=== PATIENT | male | born 1950 | race Caucasian/White ===

== ENCOUNTER 2016-09-20 15:25 | Inpatient (IN) | payer OTHER ==
[~2016-09-20] VITALS: Ht 180.3 cm; Wt 107.1 kg
[2016-09-20] VITALS (18 sets, daily range): BP systolic 105–160; BP diastolic 60–119; PULSE 65–111; TEMP 32.4–36.3; O2SAT 67–98; Ht 180.3 cm; Wt 107.1 kg
[~2016-09-20 15:25] MED LIST: ASPCH81 PO; CMD25 PO; DIGO0.2518 PO; METO25TA3 PO; SODIUM BICARB 8.4% INJ 50 MEQ/50 ML SYR IV ONE
[2016-09-20] MEDS ORDERED: AMIODARONE 360MG / 200ML D5W IV STA (15:30)
[2016-09-20] MEDS ORDERED: SODIUM BICARB 8.4% INJ 50 MEQ/50 ML SYR IV STA (15:44)
--- NOTE | 2016-09-20 15:48 | DIAGNOSTIC IMAGING REPORT ---
SINGLE VIEW CHEST CLINICAL HISTORY: Status post cardiac arrest. Atypical chest pain. FINDINGS: An AP, portable, supine chest radiograph is correlated with chest CT dated 02/17/2009. The examination is degraded by portable technique and apical lordotic positioning. Cardiac pads are in place. An endotracheal tube has been placed. The tip of the catheter projects 6 cm above the ethan at the level of the thoracic inlet. The patient is status post midline sternotomy and aortic valve replacement. The heart is markedly enlarged and there is atherosclerotic calcification of the thoracic aorta. There is prominence of the pulmonary vessels. 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 Chronic interstitial thickening is noted. Mild airspace opacities are suggested in the upper lobes. No large pleural effusion or Pneumothorax is seen. The bony thorax is grossly intact. IMPRESSION: 1. An endotracheal tube has been placed. The tip of the catheter projects 6 cm above the ethan at the level of the thoracic inlet. 2. Cardiomegaly. And mild aneurysmal dilatation of the thoracic aorta. This is likely similar in appearance to the [address] 3. Upper lobe airspace opacities are suggested. This could represent an infectious/inflammatory pneumonitis or possibly mild pulmonary edema. Clinical correlation will be required. Electronically signed by: Gurpreet Khan M.D. 09/20/2016 3:47 PM Dictated Date/Time: 09/20/2016 3:43 PM
[2016-09-20] MEDS ORDERED: FENTANYL CITRATE INJ 50 MCG/1 ML 2 ML VIAL ONE ×2 (15:49→17:00)
[2016-09-20] MEDS ORDERED: NiCARDipine HCL INJ 2.5 MG/ML 10 ML AMP ONE ×2 (15:49→16:59)
[2016-09-20] MEDS ORDERED: MIDAZOLAM HCL 1 MG/ML 2ML VIAL ONE ×2 (15:49→17:00)
[2016-09-20] MEDS ORDERED: HEPARIN SOD (PORCINE) 1000 UNIT/ML 10 ML VIAL ONE ×2 (15:49→16:59)
[2016-09-20] MEDS ORDERED: NITROGLYCERIN/D5W 100MCG/ML 20ML SYR ONE ×2 (15:50→17:01)
[2016-09-20 15:55] LABS: INR 1.1 (0.9-1.1); PROTHROMBIN TIME (PATIENT) 11.4 SECONDS (9.0-12.0)
[2016-09-20 15:55] LABS: ISTAT ARTERIAL BLOOD GAS HCO3 16 meq/L (19-24); ISTAT ARTERIAL BLOOD GAS PCO2 60 mmHg (35-46); ISTAT ARTERIAL BLOOD GAS PO2 78 mmHg (80-95); ISTAT ARTERIAL BLOOD GAS pH 7.03 (7.35-7.45); ISTAT CARBON DIOXIDE 18 mEq/l (24-31); ISTAT HEMATOCRIT 48 % (42-52); ISTAT HEMOGLOBIN 16.3 g/dl (14.0-18.0); ISTAT SODIUM 137 mEq/L (135-144)
[2016-09-20] MEDS ORDERED: NOREPINEPHRINE BITARTRATE 1 MG/ML 4 ML VIAL ONE (15:55)
[2016-09-20] MEDS ORDERED: NOREPINEPHRINE BIT INJ 8 MG in DEXTROSE 5% 500ML 500 ML IV PRN (16:00)
[2016-09-20 16:02] LABS: MEAN CELL VOLUME 93.9 fL (80-100); MEAN CORPUSCULAR HEMOGLOBIN 33.5 pg (25-34); MEAN CORPUSCULAR HGB CONC 35.7 g/dl (32-36); MEAN PLATELET VOLUME 9.6 fL (7.4-10.4); PLATELET COUNT 213 K/uL (130-400); WHITE BLOOD COUNT 30.82 K/uL (4.8-10.8)
[2016-09-20 16:02] LABS: ISTAT ARTERIAL BLOOD GAS HCO3 14 meq/L (19-24); ISTAT ARTERIAL BLOOD GAS PCO2 43 mmHg (35-46); ISTAT ARTERIAL BLOOD GAS PO2 305 mmHg (80-95); ISTAT ARTERIAL BLOOD GAS pH 7.13 (7.35-7.45); ISTAT CARBON DIOXIDE 15 mEq/l (24-31)
--- NOTE | 2016-09-20 16:11 | DIAGNOSTIC IMAGING REPORT ---
CHEST ONE VIEW PORTABLE CLINICAL HISTORY: tube tube position COMPARISON STUDY: 09/20/2016 3:37 PM FINDINGS: Endotracheal tube 2 cm below the ethan. All remaining components of the study are unchanged. IMPRESSION: Endotracheal tube 2 cm above the ethan. Otherwise unchanged exam compared to the prior study. Electronically signed by: Onur Dennis M.D. 09/20/2016 4:10 PM Dictated Date/Time: 09/20/2016 4:09 PM
[2016-09-20] MEDS ORDERED: PROPOFOL IV EMULSION 10 MG/ML 100 ML VIAL IV ONE (16:18)
[2016-09-20 16:33] LABS: ALKALINE PHOSPHATASE 99 U/L (45-117); ALT/SGPT 59 U/L (12-78); BLOOD UREA NITROGEN 14 mg/dl (7-18); BUN/CREATININE RATIO 11.1 (10-20); CALCIUM 8.3 mg/dl (8.5-10.1); CARBON DIOXIDE 18 mmol/L (21-32); CHLORIDE 104 mmol/L (98-107); GLUCOSE 268 mg/dl (70-99); SODIUM 139 mmol/L (136-145)
--- NOTE | 2016-09-20 16:46 | DIAGNOSTIC IMAGING REPORT ---
HEAD CT NONCONTRAST CT DOSE: 1376.64 mGy.cm HISTORY: cardiac arrest TECHNIQUE: Multiaxial CT images of the head were performed without the use of intravenous contrast. Comparison: None. Findings: The paranasal sinuses and mastoid air cells are clear. The calvarium and skull base are intact. The ventricles and sulci are within normal limits. There is no mass, hematoma, midline shift, or acute infarct. Impression: No acute intracranial abnormality. Electronically signed by: Onur Dennis M.D. 09/20/2016 4:44 PM Dictated Date/Time: 09/20/2016 4:41 PM
[2016-09-20 16:48] LABS: EOSINOPHIL % 0.9 %; META ABS # 0.55 K/uL (0-0); METAMYELOCYTE % 1.8 %; MYELOCYTE % 0.9 %
[2016-09-20 16:54] LABS: COMPLETE YES
[2016-09-20] MEDS ORDERED: NOREPINEPHRINE BIT INJ 8 MG in DEXTROSE 5% 500ML 500 ML IV STA (16:57)
[2016-09-20] MEDS ORDERED: AMIODARONE IV BOLUS / DRIP IV STA (16:57)
[2016-09-20] MEDS ORDERED: MEPERIDINE HCL 50 MG/ML CARP ONE (16:59)
[2016-09-20] MEDS ORDERED: MIDAZOLAM 125MG/250ML D5W IV ONE (17:12)
[2016-09-20] MEDS ORDERED: FENTANYL CITRATE 1250MCG/250ML NSS ONE (17:12)
--- NOTE | 2016-09-20 17:12 | Cardiac Catheterization ---
Procedure Note Procedure Date Sep 20, 2016. Pre-Procedure Diagnosis Non STEMI AUC Score 9 Post-Procedure Diagnosis Normal Coronary Arteries Procedure(s) Performed Coronary Angiography Critical Care Nurse Practitioner Dr. Mendoza Credit Control Assistant(s) Glunt Estimated Blood Loss 10 Medication(s) Lidocaine 1% Summary of Findings Indication: 66 year old man with history of bicuspid aortic valve, ascending aortic aneurysm s/p bioprosthetic AVR at [facility] [place] here with out of hospital arrest treated with multiple EMS/AED shocks now with ROSC. Presenting ECG with AF new RBBB and lateral ST changes. Patient intubated and cooling started in ED. Access: 6Fr Slender right radial artery Catheters: [place] Findings: LM - Angiographically normal LAD - Large caliber vessel, wraps around apex. Luminal irregularities Ramus - 20% ostial stenosis, otherwise normal Circumflex - Dominant, luminal irregularities, sluggish (URSULA 2 flow) in L-PDA. Distal PDA with mild disease, unchanged significantly from 2011 RCA - Small, non-dominant, luminal irregularities. Arterial Closure: TR band Summary: 1. Essential normal coronary arteries Recommendations: Admit to ICU Continue cooling protocol Echo to evaluate LV and bioprosthetic valve function. Hemodynamics Rest Ao: 84/60/72 Final Ao: 105/70/90 LV: --- Recommendations Medical therapy and/or Counseling Specimens None Radiation Exposure (mGy) 1170 Contrast (mls) 50 Fluids (cc crystalloids) 400 Drains None Anesthesia Propofol Procedural Complication(s) None Disposition ICU ACC Data Cardiac Status Clinical evaluation leading to the procedure CAD Presntation: Non STEMI Anginal Classification: CCS IV Heart Failure: No, NYHA Class: CCS I Cardiogenic Shock w/in 24Hrs: Yes Cardiac Arrest w/in 24Hrs: Yes Imaging studies past 6 months: No Stress studies past 6 months: No Standard Exercise Stress Test: No Stress Echocardiogram: No Stress Testing w/SPECT MPI: No Cardiac CTA: No Coronary Anatomy Dominant: Left Left Main (% Stenosis): Normal LAD (% Stenosis): Normal Circumflex (% Stenosis): Normal L PDA (% Stenosis): Distal (mild disease) R PDA (% Stenosis): Normal Ramus (% Stenosis): Ostial (10-20%) Diagnostic Physician's Name: Marc Mendoza MD Status: Emergency Closure Device Percutaneous Entry Location: Radial Closure Device: Radial Band Recommendations: Medical therapy and/or Counseling Intraprocedure Events Significant Dissection: No Perforation: No
[2016-09-20] MEDS ORDERED: MODERATE STRESS LEVEL ONE (17:15)
[2016-09-20] MEDS ORDERED: INSULIN PROTOCOL GOAL RANGE ONE (17:15)
[2016-09-20] MEDS ORDERED: CISATRACURIUM IV BOLUS & DRIP IV STA (17:23)
[2016-09-20] MEDS ORDERED: ICU ELECTROLYTE REPLACEMENT PROTOCOL PRN (17:30)
[2016-09-20] MEDS ORDERED: INSULIN IV INFUSION PROTOCOL SCH (17:30)
[2016-09-20] MEDS ORDERED: VECURONIUM BROMIDE 10 MG VIAL ONE (17:35)
[2016-09-20] MEDS ORDERED: CISATRACURIUM BESYLATE IV ONE (17:45)
[2016-09-20] MEDS ORDERED: DEXTROSE 50% 50 ML SYR IV PRN (18:00)
[2016-09-20] MEDS ORDERED: INSULIN HUMAN REGULAR IV BOLUS 4 UNIT in SYRINGE 0 ML IV SCH (18:00)
[2016-09-20] MEDS ORDERED: GLUCOSE 10 TABS/TUBE PO PRN (18:00)
[2016-09-20] MEDS ORDERED: GLUCAGON FOR INJ 1 MG VIAL SQ PRN (18:00)
[2016-09-20] MEDS ORDERED: GLUCOSE 40% GEL 15 GM TUBE PO PRN (18:00)
[2016-09-20 18:04] LABS: CKMB/CK RATIO 1.9 (0-3.0); MAGNESIUM 2.3 mg/dl (1.8-2.4); POTASSIUM 3.7 mmol/L (3.5-5.1)
--- NOTE | 2016-09-20 18:13 | Cardiology Procedure Brief Nt ---
Preliminary Cardiology Note Procedure Date Sep 20, 2016. Pre-Procedure Diagnosis cardiac arrest Post-Procedure Diagnosis Severe LV systolic dysfunction Procedure(s) Performed TTE, RILEY Stem Cleaning Machine Feeder Tricia Palomo DO, FACC Personnel Coordinator(s) HOANG Nova Estimated Blood Loss none Preliminary Findings Severe global LV systolic dysfunction, LVEF 20-25% Normal RV size and systolic function. Normal Bio AV prosthetic function without stenosis or regurgitation. No evidence of Ascending aortic dissection. No LA or GARY thrombus. Spontaneous echocontrast noted in the LA. Mild MR. The interatrial septum is intact with out ASD , PFO , or shunt. Recommendations Continue amiodarone s/p VF cardiac arrest. Continue ventilator support. Continue therapeutic hypothermia. Start heparin infusion given AF, possible pulmonary embolism. Anesthesia patient on Versed, Fentanyl gtts Complication(s) None Disposition Surgical ICU
[2016-09-20] MEDS ORDERED: INSULIN HUMAN REGULAR IV BOLUS 2.5 UNIT in SYRINGE 0 ML IV SCH (18:15)
[2016-09-20] MEDS: INSULIN REGULAR 250 UNITS in SODIUM CHLORIDE 0.9% 250ML 250 ML IV SCH (18:32)
[2016-09-20] MEDS: AMIODARONE / D5W 200 ML IV SCH ×3 (18:40→23:25)
[2016-09-20] MEDS: NORMOSOL R 1,000 ML IV SCH (18:44)
[2016-09-20 18:57] LABS: ISTAT ALLEN TEST Pass; ISTAT ARTERIAL BLOOD GAS HCO3 21 meq/L (19-24); ISTAT ARTERIAL BLOOD GAS PCO2 45 mmHg (35-46); ISTAT ARTERIAL BLOOD GAS PO2 58 mmHg (80-95); ISTAT ARTERIAL BLOOD GAS pH 7.28 (7.35-7.45); ISTAT CARBON DIOXIDE 23 mEq/l (24-31); ISTAT DELIVERY SYSTEM Ventilator; ISTAT FIO2 50 %; ISTAT PEEP 5; ISTAT RATE 24; ISTAT SITE L Radial; VE 12.4; Vt 550
[2016-09-20] MEDS: CISATRACURIUM BESYLATE INJ 40 MG in SODIUM CHLORIDE 0.9% 100ML 80 ML IV PRN (19:01)
--- NOTE | 2016-09-20 19:10 | TEE ---
*NOTICE TO RECEIVING [employer] This information is strictly Confidential and protected under [place] law. [place] law prohibits you from making any further disclosure of this information unless further disclosure is expressly permitted by the written consent of the person to whom it pertains or is authorized by law. A general authorization for the release of medical or other information is not sufficient for this purpose. Hospital accepts no responsibility if the information is made available to any other person, INCLUDING THE PATIENT. Interpretation Summary * Name: TONY MALONE Study Date: 09/20/2016 05:01 PM BP: 105/60 mmHg * Patient Location: E108 HR: 84 * : 1950 (M/d/yyyy) Gender: Male * Age: 66 yrs Ethnicity: [place] Weight: 233 lb * Ordering Physician: Francisco Palomo DO, FACC * Performed By: Bri Paul RCS * * Reason For Study: CARDIAC ARREST / H/O BIO AVR / CARDIOMYOPATHY / A-FIB * -- Conclusions -- * A complete transthoracic echocardiogram and a transesophageal echocardiogram were performed in SICU bed 108 for the evaluation of cardiac arrest. * The patient was already receiving IV infusions of Versed and Fentanyl for sedation and was on the ventilator. * No additional sedation was administered for the procedure. * Atrial fibrilation with controlled ventricular rate was present during the study. Procedure Details * RILEY Probe #3 was used for the procedure. * The study was performed at bedside. * Time out was conducted by the physician, nurse, and chief nuclear medicine technologist with positive identification of patient and procedure. * Informed consent for Transesophageal Echocardiogram was obtained prior to the procedure. * An intravenous line was placed. A topical anesthetic agent was used for oropharangeal anesthesia. A bite block was inserted. * The patient's vital signs, including blood pressure, heart rate, pulse oximetry and cardiac rhythm were monitored throughout the procedure . * The posterior oropharynx was anesthetized using a topical anesthetic spray. A bite guard was inserted. * One vial of Definity ultrasound contrast was diluted in normal saline to a total volume of 10 ml. A total of '2' ml of solution was administered during imaging. * Lot # [id number] of Definity utilized for procedure. * Expiration date OCT 09. * A multifrequency, multiplane transesopheageal echocardiographic endoscope was inserted and manipulated in the standard fashion to achieve multiplane views. * The transesophageal probe was passed without difficulty. * The usual views were obtained; basal, mid-esophageal, transgastric and aortic views. * The patient tolerated the procedure well without evidence of orophangeal or esophageal trauma. * A 2D transesophageal echocardiogram with spectral and color flow Doppler was performed. * Contrast injection with agitated saline was performed. Left Ventricle * The left ventricle is mildly dilated. * There is mild concentric left ventricular hypertrophy. * Left ventricular systolic function is severely reduced. * Ejection Fraction = 20-25%. * There is severe global hypokinesis of the left ventricle. Right Ventricle * The right ventricle is normal in size and function. Atria * The left atrium is moderately dilated. * No left atrial mass or thrombus visualized. * No thrombus is detected in the left atrial appendage. * Spontaneous contrast in LA. * Right atrial size is normal. * The atrial septum is aneurysmal. * The interatrial septum is intact with no evidence for an atrial septal defect. Mitral Valve * The mitral valve anatomy is normal. * There is no mitral valve prolapse present. * There is no vegetation seen on the mitral valve. * There is no mitral valve stenosis. * There is mild mitral regurgitation. Tricuspid Valve * The tricuspid valve is normal. * There is no tricuspid stenosis. * Significant tricuspid regurgitation is absent. Aortic Valve * No hemodynamically significant valvular aortic stenosis. There is trace intraprosthetic regurgitation. * There is a bioprosthetic aortic valve. * The leaflets of the bioprosthetic aortic valve were well visualized with normal excursion. Pulmonic Valve * The pulmonic valve is not well seen, but is grossly normal. Great Vessels * The aortic root is normal size. * The proximal ascending aorta is severely dilated, with diameter of 5.2cm. There is no evidence of proximal thoracic aortic dissection. Pericardium * There is no pericardial effusion. MMode 2D Measurements and Calculations IVSd 1.4 cm IVSs 1.8 cm LVIDd 5.6 cm LVIDs 5.1 cm LVPWd 1.3 cm LVPWs 1.2 cm IVS/LVPW 1.1 FS 8.9 % EDV(Teich) 156.7 ml ESV(Teich) 126.3 ml EF(Teich) 19.4 % EDV(cubed) 180.1 ml ESV(cubed) 136.1 ml EF(cubed) 24.5 % % IVS thick 23.6 % % LVPW thick -9.40 % LV mass(C)d 343.4 grams LV mass(C)s 330.6 grams SV(Teich) 30.4 ml SV(cubed) 44.1 ml Ao root diam 3.5 cm Ao root area 9.6 cm\S\2 asc Aorta Diam 5.2 cm LVOT diam 1.9 cm LVOT area 2.9 cm\S\2 Doppler Measurements and Calculations Ao V2 max 218.0 cm/sec Ao max PG 24.3 mmHg Ao V2 mean 165.7 cm/sec Ao mean PG 15.3 mmHg Ao V2 VTI 44.7 cm MR max ivelisse 490.7 cm/sec MR max PG 96.3 mmHg SV(Ao) 431.2 ml
[2016-09-20] MEDS: HEPARIN 25,000 UNIT/500ML D5W 500 ML IV PRN (20:45)
[2016-09-20] MEDS: INSULIN ASPART 100 UNITS/ML 3 ML PEN SC SCH (20:47)
[2016-09-20] MEDS ORDERED: METOPROLOL TARTRATE 1 MG/ML VIAL ONE (21:15)
[2016-09-20] MEDS ORDERED: METOPROLOL TARTRATE 1 MG/ML VIAL IV STA (21:20)
--- NOTE | 2016-09-20 22:16 | DIAGNOSTIC IMAGING REPORT ---
CHEST ONE VIEW PORTABLE CLINICAL HISTORY: OG Tube Placed COMPARISON STUDY: Chest radiograph September 20, 2016 at 3:50 PM FINDINGS: The tip of the nasogastric tube is below the lower aspect of this image but at least within the proximal body of the stomach. The tip of the endotracheal tube is 5.7 cm above the ethan. A left subclavian central line is in place. There is no pneumothorax. A small left pleural effusion is suspected. Left basilar opacity has increased. There is also left perihilar opacity. There is pulmonary vascular congestion with possible mild pulmonary edema. Moderate cardiomegaly is noted. There are median sternotomy wires and a prosthetic cardiac valve. IMPRESSION: 1. Appropriately positioned lines and tubes. Tip of nasogastric tube below the lower aspect of image but at least within proximal body of the stomach. 2. Pulmonary vascular congestion with suspected mild pulmonary edema. 3. Increasing left perihilar and basilar opacity which could reflect consolidation or atelectasis. Electronically signed by: Sarthak William M.D. 09/20/2016 10:15 PM Dictated Date/Time: 09/20/2016 10:12 PM
--- NOTE | 2016-09-20 22:59 | EMERGENCY ROOM VISIT NOTE ---
History Report prepared by Henriqueibsavage: Joey Manzano Under the Supervision of: Dr. Feliciano Morton D.O. First contact with patient: 15:28 Chief Complaint: CARDIAC ARREST Stated Complaint: CARDIAC ARREST History of Present Illness The patient is a 66 year old male who presents to the Emergency Room with acute cardiac arrest that occurred just prior to arrival. The patient had a pulse upon arrival to the ED. The patient was reportedly given 5 doses of epinephrine en route. He was also defibrillated a total of 6 times. EMS noted that it was a wide complex rhythm and at times appeared to be in [place]ors[place] rhythm. The patient was also given 300 mg amiodarone and 2 gm magnesium. The patient reportedly did not have any complaints prior to the arrest. 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 He was intubated en route. Complete history is limited secondary to intubation. Source of History: EMS History Limited By: intubation Onset: just prior to arrival Position: other (global) Quality: other (cardiac arrest) Timing: other (acute) Review of Systems ROS is limited secondary to intubation. Past Medical & Surgical Medical Problems: (1) Atrial fibrillation (2) Cardiac arrest Surgical Problems: (1) Heart valve replaced Family History Unknown Social History Housing Status: lives with family Current/Historical Medications Scheduled Aspirin (Aspirin Tab-Chewable *), 81 MG PO DAILY Allergies Coded Allergies: No Known Allergies (Unverified , NONE, 09/20/16) Physical Exam Vital Signs Date Time Temp Pulse Resp B/P Pulse Ox O2 Delivery O2 Flow Rate FiO2 09/20/16 16:45 36.3 99 24 105/60 94 Mechanical Ventilator 50 09/20/16 16:45 36.3 99 24 105/60 94 Mechanical Ventilator 50 09/20/16 15:56 130 09/20/16 15:50 Mechanical Ventilator 09/20/16 15:48 109 93/64 97 09/20/16 15:47 118 64/61 95 Mechanical Ventilator 09/20/16 15:33 128 109/66 95 Ambu-Bag Physical Exam GENERAL: Unresponsive, laying on stretcher, ET tube in place. EYE EXAM: Eyes closed OROPHARYNX: ET tube in place NECK: supple, no nuchal rigidity, no adenopathy, non-tender LUNGS: Course sounds bilaterally. Normal chest wall mechanics HEART: Tachycardic with irregularly irregular rhythm, no murmurs, S1 normal and S2 normal. CHEST: Bruising on anterior chest wall. ABDOMEN: abdomen soft, non-tender, normo-active bowel sounds, no masses, no rebound or guarding. SKIN: no rashes and no bruising UPPER EXTREMITIES: upper extremities are grossly normal. LOWER EXTREMITIES: No pitting edema. IO in place left lower extremity. NEURO EXAM: Unresponsive, intubated, GCS 3. Medical Decision & Procedures ER Provider Diagnostic Interpretation: Xray results per the radiologist and my interpretation. Other results have been interpreted by the radiologist and reviewed by me. SINGLE VIEW CHEST CLINICAL HISTORY: Status post cardiac arrest. Atypical chest pain. FINDINGS: An AP, portable, supine chest radiograph is correlated with chest CT dated 02/17/2009. The examination is degraded by portable technique and apical lordotic positioning. Cardiac pads are in place. An endotracheal tube has been placed. The tip of the catheter projects 6 cm above the ethan at the level of the thoracic inlet. The patient is status post midline sternotomy and aortic valve replacement. The heart is markedly enlarged and there is atherosclerotic calcification of the thoracic aorta. There is prominence of the pulmonary vessels. 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 Chronic interstitial thickening is noted. Mild airspace opacities are suggested in the upper lobes. No large pleural effusion or Pneumothorax is seen. The bony thorax is grossly intact. IMPRESSION: 1. An endotracheal tube has been placed. The tip of the catheter projects 6 cm above the ethan at the level of the thoracic inlet. 2. Cardiomegaly. And mild aneurysmal dilatation of the thoracic aorta. This is likely similar in appearance to the [address] 3. Upper lobe airspace opacities are suggested. This could represent an infectious/inflammatory pneumonitis or possibly mild pulmonary edema. Clinical correlation will be required. Electronically signed by: Gurpreet Khan M.D. 09/20/2016 3:47 PM Dictated Date/Time: 09/20/2016 3:43 PM CHEST ONE VIEW PORTABLE CLINICAL HISTORY: tube tube position COMPARISON STUDY: 09/20/2016 3:37 PM FINDINGS: Endotracheal tube 2 cm below the ethan. All remaining components of the study are unchanged. IMPRESSION: Endotracheal tube 2 cm above the ethan. Otherwise unchanged exam compared to the prior study. Electronically signed by: Onur Dennis M.D. 09/20/2016 4:10 PM Dictated Date/Time: 09/20/2016 4:[address]AST CT DOSE: 1376.64 mGy.cm HISTORY: cardiac arrest TECHNIQUE: Multiaxial CT images of the head were performed without the use of intravenous contrast. Comparison: None. Findings: The paranasal sinuses and mastoid air cells are clear. The calvarium and skull base are intact. The ventricles and sulci are within normal limits. There is no mass, hematoma, midline shift, or acute infarct. Impression: No acute intracranial abnormality. Electronically signed by: Onur Dennis M.D. 09/20/2016 4:44 PM Dictated Date/Time: 09/20/2016 4:41 PM Laboratory Results 09/20/16 15:37 Red Blood Count 4.90, Mean Corpuscular Volume 93.9, Mean Corpuscular Hemoglobin 33.5, Mean Corpuscular Hemoglobin Concent 35.7, Mean Platelet Volume 9.6 09/20/16 15:37 Test 09/20/16 15:37 09/20/16 15:42 White Blood Count 30.82 K/uL (4.8-10.8) Red Blood Count 4.90 M/uL (4.7-6.1) Hemoglobin 16.4 g/dL (14.0-18.0) Hematocrit 46.0 % (42-52) Mean Corpuscular Volume 93.9 fL (80-100) Mean Corpuscular Hemoglobin 33.5 pg (25-34) Mean Corpuscular Hemoglobin Concent 35.7 g/dl (32-36) Platelet Count 213 K/uL (130-400) Mean Platelet Volume 9.6 fL (7.4-10.4) RDW Standard Deviation 45.0 fL (36.4-46.3) RDW Coefficient of Variation 13.1 % (11.5-14.5) Neutrophils % (Manual) 55.0 % Lymphocytes % (Manual) 36.0 % Monocytes % (Manual) 5.4 % Eosinophils % (Manual) 0.9 % Metamyelocytes % 1.8 % Myelocytes % 0.9 % Neutrophils # (Manual) 16.95 K/uL (1.4-6.5) Total Absolute Neutrophils 16.95 K/uL (1.4-6.5) Lymphocytes # (Manual) 11.10 K/uL (1.2-3.4) Total Absolute Lymphocytes 11.10 K/uL (1.2-3.4) Monocytes # (Manual) 1.66 K/uL (0.11-0.59) Eosinophils # (Manual) 0.28 K/uL (0-0.5) Metamyelocytes # 0.55 K/uL (0-0) Myelocytes # 0.28 K/uL (0-0) Prothrombin Time 11.4 SECONDS (9.0-12.0) Prothromb Time International Ratio 1.1 (0.9-1.1) Activated Partial Thromboplast Time 26.4 SECONDS (21.0-31.0) Partial Thromboplastin Ratio 1.0 Anion Gap 17.0 mmol/L (3-11) Estimated GFR () 66.4 Estimated GFR (Non- 57.3 BUN/Creatinine Ratio 11.1 (10-20) Calcium Level 8.3 mg/dl (8.5-10.1) Total Bilirubin 0.5 mg/dl (0.2-1) Alanine Aminotransferase (ALT/SGPT) 59 U/L (12-78) Alkaline Phosphatase 99 U/L (45-117) Pro-B-Type Natriuretic Peptide 1744 pg/ml (0-900) Total Protein 6.9 gm/dl (6.4-8.2) Albumin 3.8 gm/dl (3.4-5.0) Lipase 296 U/L (73-393) Thyroid Stimulating Hormone (TSH) 12.400 uIu/ml (0.300-4.500) Free Thyroxine 0.83 ng/dl (0.80-1.60) Bedside Hemoglobin 16.3 g/dl (14.0-18.0) Bedside Hematocrit 48 % (42-52) Bedside Sodium 137 mEq/L (135-144) Bedside Potassium 3.9 mEq/L (3.3-5.0) Date/Time Source Procedure Growth Status 09/20/16 00:00 Nasal MRSA DNA Surveillance Screen - Final Specimen Negative for MRSA by DNA Probe Complete Laboratory results per my review. Medications Administered Medications (Trade) Dose Ordered Sig/Christina Route Start Time Stop Time Status Last Admin Dose Admin Norepinephrine Bitartrate (Levophed Inj) 4 mg STK-MED ONCE .ROUTE 09/20/16 15:55 09/20/16 15:56 DC 09/20/16 15:55 4 MG Propofol (Diprivan Iv Emulsion 100ml Vial) 1 dose STK-MED ONCE IV 09/20/16 16:18 09/20/16 16:19 DC 09/20/16 16:18 1 DOSE ECG Indication: other (arrest) Rate (beats per minute): 132 Rhythm: atrial fibrillation Findings: Q waves (Inferior), ST depression (Lateral), other (normal axis) ED Course ED COURSE: Vital signs were reviewed and showed tachycardia and hypotension. The patients medical record was reviewed The above diagnostic studies were performed and reviewed. ED treatments and interventions as stated above. 1530: The patient was evaluated in room B1. A complete history and physical examination was performed. 1530: Amiodarone HCl / dextrose 360 mg IV. 1535: Dr. Mendoza, Director Of Distribution, is in with the patient. He would like the patient to go to the nursery laborer. 1537: Spoke with the patient's family. 1540: Dr. Rowe, Fire Fighter, is in with the patient. 1544: Sodium Bicarbonate 150 ml IV. 1555: The patient was transported to the nursery laborer. 1600: Norepinephrine Bitartrate 8 mg / dextrose 508 ml @ 0 mls/hr. 1602: Discussed the case with Dr. Croft, [facility]. The patient will be evaluated. 1615: The patient is at the catheterization lab. I discussed my findings with the patient's family and they understand and agree with the treatment plan. Based on the patients age, coexisting illnesses, exam and lab findings the decision to treat as an inpatient was made. The patient remained stable while under my care. The patient will be evaluated for further management. Medical Decision Differential diagnoses includes but is not limited to acute coronary syndrome, myocardial infarction, pericarditis, pulmonary embolus, aortic dissection, pneumonia, pneumothorax, musculoskeletal, shingles, esophageal. 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 Police arrived within 1 minute and he was shocked 2-3 times per EMS by and a ED and again 4 times by EMS. EMS believes it to be a wide complex tachycardia and at times close to twitch signs. He is given 2 g of magnesium and amiodarone by EMS. He was intubated and brought into the trauma bay. On my evaluation is intubated unresponsive. Bedside sound showed cardiac contractile only without a pericardial effusion. ET tube was in place. He was placed on the ventilator and amiodarone drip was started. He was given 3 amps of bicarbonate with his pH is 7.0. Called cardiology and discussed with the photocomposition keyboard operator. We reviewed his case at bedside. He does have a history of aortic valve replacement. It was decided with his age to cath him. I discussed with family and updated them. His EKG did show ST depressions in the lateral leads. Labs were remarkable for a leukocytosis of 30,000, elevated troponin and the acidosis as previously discussed. Chest x-ray showed ET tube in place. Critical care placed subclavian while in the ER. Family was updated and he was taken emergently to the [facility] where we had previously set up calling blankets. He was packed with ice prior to transport. Consults Time Called: 1555 Consulting Physician: Dr. Croft [facility]. Returned Call: 1602 1602: Discussed the case with Dr. Croft, [facility]. The patient will be evaluated. Impression Primary Impression: Cardiac arrest Critical Care I have personally spent 75 minutes of critical care time in the direct management of this patient. This includes bedside care, interpretation of diagnostic studies, and testing, discussion with consultants, patient, and family members, and other required patient management activities. This 75 minutes is in excess of all separately billable procedures. Scribe Attestation The scribe's documentation has been prepared under my direction and personally reviewed by me in its entirety. I confirm that the note above accurately reflects all work, treatment, procedures, and medical decision making performed by me. Departure Information Dispostion Being Evaluated By Hospitalist (+ Fire Fighter) Referrals Domenico Vines D.O. Pulmonary (PCP) Patient Instructions My [facility]
--- NOTE | 2016-09-20 22:59 | DIAGNOSTIC IMAGING REPORT ---
BILATERAL LOWER EXTREMITY VENOUS DOPPLER CLINICAL HISTORY: Cardiac arrest. COMPARISON STUDY: No previous studies for comparison. TECHNIQUE: Sonography of the deep venous system of the bilateral lower extremities was performed. Compression and augmentation were evaluated. FINDINGS: The bilateral common femoral, superficial femoral and popliteal veins were compressible. Augmentation was normal. Flow was shown within the deep calf vessels. IMPRESSION: No evidence of deep venous thrombus within the bilateral lower extremities. Electronically signed by: Sarthak William M.D. 09/20/2016 10:58 PM Dictated Date/Time: 09/20/2016 10:57 PM
--- NOTE | 2016-09-20 23:18 | Procedure Note ---
Procedure Note Procedure Date Sep 20, 2016. (Ngozi Monzon PA-C) I was physically present during the entire procedure and assisted. (Danielito Rowe, D.O.) Procedure Description Procedure Name: Left Radial Artery Catheter Insertion Procedure time out: side/site verified, patient ID confirmed, correct procedure Consent obtained: written (Daugther Signed, Pt Unresponsive) Time of procedure: 19:45 Performed by: physician admissions officer Indications: diagnostic, therapeutic Contraindications: none Description: Using sterile technique; the left radial artery was cleaned with a chloro- hexadine scrub after adequate palpation and visualization with the ultrasound, a finder needle with overlaying catheter was then used with approach at a 45* angle until a flash was obtained with direct visualization on ultrasound. Sono- site documentation was uploaded electronically afterwards. Using Seldinger technique, there was initially no difficulty passing the guide wire, on the first attempt the guide wire was then passed successfully into the artery and the catheter was threaded over the guide wire; which was then removed intact. Arterial blood was seen pulsating from catheter tip and a luer lock valve was attached to the catheter. The A-line catheter was then secured with one stat- lock and covered with a sterile surgical dressing. Pt was reassessed and no evidence of hematoma was appreciated. The tubing was placed between the first and second fingers and taped to the forearm, before a wrist support was placed. Pt tolerated the procedure well with no complications. Consent was obtained by Dr. Danielito Rowe Complications: none Patient tolerated procedure: well Post-procedure vital signs: reviewed and stable (Ngozi Monzon PA-C)
[2016-09-20 23:44] LABS: ISTAT ARTERIAL BLOOD GAS HCO3 19 meq/L (19-24); ISTAT ARTERIAL BLOOD GAS PCO2 38 mmHg (35-46); ISTAT ARTERIAL BLOOD GAS PO2 68 mmHg (80-95); ISTAT ARTERIAL BLOOD GAS pH 7.28 (7.35-7.45); ISTAT CARBON DIOXIDE 20 mEq/l (24-31); ISTAT DELIVERY SYSTEM Ventilator; ISTAT FIO2 60 %; ISTAT PEEP 5; ISTAT RATE 24; ISTAT SITE Art Line; VE 16.5; Vt 550
--- NOTE | 2016-09-20 23:54 | History and Physical ---
History & Physical Date & Time of Service: Sep 20, 2016 at 23:28 Chief Complaint: Cardiac Arrest Primary Care Physician: Doemnico Vines D.O. 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 Police arrived within 1 minute and he was shocked 2-3 times per EMS and again 4 times by EMS and Route. EMS believes it to be a wide complex tachycardia and at times possibly torsades. He was given 2 g of magnesium and amiodarone by EMS and ROSC was achieved. He was intubated and brought into ER. His ECG did show atrial fibrillation and some possible ischemic changes. He was taken to the blood bank laboratory technician where he had essentially normal coronary arteries. RILEY performed in the intensive care unit after the catheterization showed severely reduced LV function with an EF 20-25%. A code Arctic was called when he first presented to the ER and cooling measures had already commenced at the time I saw him. His vital signs are stable, he is sedated and on the ventilator, a left subclavian central line was placed, a left arterial line was placed, as well as a Marie catheter. Past Medical/Surgical History Medical Problems: Paroxysmal Atrial fibrillation Aortic valve replacement for bicuspid aortic valve with severe aortic regurgitation Ascending thoracic aortic aneurysm-5.2 cm Chronic systolic CHF Possible history of hepatitis B Surgical Problems: Aortic valve replacement Tonsillectomy Pilonidal cystectomy Family History Unknown Social History Smoking Status: Former Smoker Drug Use: none Marital Status: Multi-Drug Resistant Organisms History of MDRO: No Allergies Coded Allergies: No Known Allergies (Unverified , NONE, 09/20/16) Home Medications Scheduled Aspirin (Aspirin Tab-Chewable *), 81 MG PO DAILY Review of Systems Unobtainable due to sedation and intubation Physical Exam Vital Signs Date Time Temp Pulse Resp B/P Pulse Ox O2 Delivery O2 Flow Rate FiO2 09/20/16 22:02 34.0 72 24 152/98 98 09/20/16 21:14 98 155/107 09/20/16 21:00 34.5 84 24 155/107 97 09/20/16 20:19 60 09/20/16 20:00 35.0 85 24 154/112 97 09/20/16 20:00 98 Mechanical Ventilator 60 09/20/16 20:00 60 09/20/16 19:45 83 24 136/97 09/20/16 19:30 81 24 145/109 09/20/16 19:15 91 24 137/100 09/20/16 19:00 35.4 99 24 105/60 97 Mechanical Ventilator 60 09/20/16 18:47 79 24 142/101 94 09/20/16 18:45 84 24 09/20/16 18:30 92 24 157/108 09/20/16 18:23 50 09/20/16 18:15 82 24 160/119 09/20/16 18:00 35.8 99 24 105/60 94 Mechanical Ventilator 60 09/20/16 17:45 83 24 142/100 09/20/16 17:36 35.9 99 24 105/60 94 Mechanical Ventilator 60 09/20/16 17:30 111 23 82 09/20/16 17:15 90 25 67 09/20/16 16:45 36.3 99 24 105/60 94 Mechanical Ventilator 50 09/20/16 16:45 36.3 99 24 105/60 94 Mechanical Ventilator 50 09/20/16 15:56 130 09/20/16 15:50 Mechanical Ventilator 09/20/16 15:48 109 93/64 97 09/20/16 15:47 118 64/61 95 Mechanical Ventilator 09/20/16 15:33 128 109/66 95 Ambu-Bag General Appearance: WD/WN, + pertinent finding (sedated and intubated, lying on cooling blanket with ice packs in groin and axillae bilaterally) Head: normocephalic, atraumatic Eyes: normal inspection, PERRL, sclerae normal ENT: + pertinent finding (ET tube coming from the mouth, left subclavian line in place, OG tube in place to intermittent suction with green fluid coming out) Neck: trachea midline Respiratory/Chest: lungs clear, normal breath sounds, no respiratory distress, no accessory muscle use Cardiovascular: no edema, no gallop, normal peripheral pulses, + systolic murmur (3/6 of the right upper sternal border), + irregularly irregular (with normal rate) Abdomen/GI: normal bowel sounds, non tender, soft, no organomegaly Genitourinary - Male: normal male genitalia (with Marie catheter in place) Extremities/Musculoskelatal: no pedal edema Neurologic/Psych: + pertinent finding (sedated) Skin: no rash, + pertinent finding (skin cool) Diagnostics Laboratory Results Results Past 24 Hours Test 09/20/16 15:37 09/20/16 15:42 09/20/16 15:49 09/20/16 16:57 Range/Units White Blood Count 30.82 4.8-10.8 K/uL Red Blood Count 4.90 4.7-6.1 M/uL Hemoglobin 16.4 14.0-18.0 g/dL Hematocrit 46.0 42-52 % Mean Corpuscular Volume 93.9 80-100 fL Mean Corpuscular Hemoglobin 33.5 25-34 pg Mean Corpuscular Hemoglobin Concent 35.7 32-36 g/dl Platelet Count 213 130-400 K/uL Mean Platelet Volume 9.6 7.4-10.4 fL RDW Standard Deviation 45.0 36.4-46.3 fL RDW Coefficient of Variation 13.1 11.5-14.5 % Neutrophils % (Manual) 55.0 % Lymphocytes % (Manual) 36.0 % Monocytes % (Manual) 5.4 % Eosinophils % (Manual) 0.9 % Metamyelocytes % 1.8 % Myelocytes % 0.9 % Neutrophils # (Manual) 16.95 1.4-6.5 K/uL Total Absolute Neutrophils 16.95 1.4-6.5 K/uL Lymphocytes # (Manual) 11.10 1.2-3.4 K/uL Total Absolute Lymphocytes 11.10 1.2-3.4 K/uL Monocytes # (Manual) 1.66 0.11-0.59 K/uL Eosinophils # (Manual) 0.28 0-0.5 K/uL Metamyelocytes # 0.55 0-0 K/uL Myelocytes # 0.28 0-0 K/uL Prothrombin Time 11.4 9.0-12.0 SECONDS Prothromb Time International Ratio 1.1 0.9-1.1 Activated Partial Thromboplast Time 26.4 21.0-31.0 SECONDS Partial Thromboplastin Ratio 1.0 Sodium Level 139 136-145 mmol/L Potassium Level 3.5-5.1 mmol/L Chloride Level 104 98-107 mmol/L Carbon Dioxide Level 18 21-32 mmol/L Anion Gap 17.0 3-11 mmol/L Blood Urea Nitrogen 14 7-18 mg/dl Creatinine 1.30 0.60-1.40 mg/dl Estimated GFR () 66.4 Estimated GFR (Non- 57.3 BUN/Creatinine Ratio 11.1 10-20 Random Glucose 268 70-99 mg/dl Calcium Level 8.3 8.5-10.1 mg/dl Magnesium Level 1.8-2.4 mg/dl Total Bilirubin 0.5 0.2-1 mg/dl Direct Bilirubin 0-0.2 mg/dl Aspartate Amino Transf (AST/SGOT) 15-37 U/L Alanine Aminotransferase (ALT/SGPT) 59 12-78 U/L Alkaline Phosphatase 99 45-117 U/L Total Creatine Kinase 39-308 U/L Creatine Kinase MB 5.5 0.5-3.6 ng/ml Creatine Kinase MB Ratio 0-3.0 Troponin I 0.280 0-0.045 ng/ml Pro-B-Type Natriuretic Peptide 1744 0-900 pg/ml Total Protein 6.9 6.4-8.2 gm/dl Albumin 3.8 3.4-5.0 gm/dl Lipase 296 73-393 U/L Thyroid Stimulating Hormone (TSH) 12.400 0.300-4.500 uIu/ml Free Thyroxine 0.83 0.80-1.60 ng/dl Bedside Hemoglobin 16.3 14.0-18.0 g/dl Bedside Hematocrit 48 42-52 % Bedside Blood Gas pH (LAB) 7.03 7.13 7.35-7.45 Bedside Blood Gas pCO2 (LAB) 60 43 35-46 mmHg Bedside Blood Gas pO2 (LAB) 78 305 80-95 mmHg Bedside Blood Gas HCO3 (LAB) 16 14 19-24 meq/L Bedside Blood Gas Total CO2 18 15 24-31 mEq/l Bedside Blood Gas Base Excess (LAB) -15.0 -15.0 -9-1.8 meq/L Bedside Blood Gas O2 Saturation 87.0 100.0 90-95 % Bedside Sodium 137 135-144 mEq/L Bedside Potassium 3.9 3.3-5.0 mEq/L Test 09/20/16 17:24 09/20/16 18:15 09/20/16 18:21 09/20/16 18:44 Range/Units Potassium Level 3.7 3.5-5.1 mmol/L Bedside Glucose (other) 209 237 70-99 mg/dl Magnesium Level 2.3 1.8-2.4 mg/dl Direct Bilirubin 0.2 0-0.2 mg/dl Aspartate Amino Transf (AST/SGOT) 76 15-37 U/L Total Creatine Kinase 686 39-308 U/L Creatine Kinase MB 13.0 0.5-3.6 ng/ml Creatine Kinase MB Ratio 1.9 0-3.0 Troponin I 1.700 0-0.045 ng/ml Random Cortisol 58.24 mcg/dl Blood Gas Sample Site L Radial Bedside Blood Gas pH (LAB) 7.28 7.35-7.45 Bedside Blood Gas pCO2 (LAB) 45 35-46 mmHg Bedside Blood Gas pO2 (LAB) 58 80-95 mmHg Bedside Blood Gas HCO3 (LAB) 21 19-24 meq/L Bedside Blood Gas Total CO2 23 24-31 mEq/l Bedside Blood Gas Base Excess (LAB) -6.0 -9-1.8 meq/L Bedside Blood Gas O2 Saturation 88.0 90-95 % Augutsine Test Pass Oxygen Delivery Device Ventilator Bedside Oxygen Rate (breaths/min) 24 Blood Gas Minute Ventilation 12.4 Bedside FiO2 50 % Blood Gas Tidal Volume 550 Blood Gas PEEP 5 Test 09/20/16 19:35 09/20/16 20:38 09/20/16 21:42 Range/Units Bedside Glucose (other) 223 215 219 70-99 mg/dl Microbiology Results 09/20/16 MRSA DNA Surveillance Screen - Final, Complete Specimen Negative for MRSA by DNA Probe Diagnostic Radiology Venous Doppler of the bilateral lower extremities-negative for DVT Chest x-ray: IMPRESSION: 1. An endotracheal tube has been placed. The tip of the catheter projects 6 cm above the ethan at the level of the thoracic inlet. 2. Cardiomegaly. And mild aneurysmal dilatation of the thoracic aorta. This is likely similar in appearance to the [address] 3. Upper lobe airspace opacities are suggested. This could represent an infectious/inflammatory pneumonitis or possibly mild pulmonary edema. Clinical correlation will be required. CT of the head-no acute changes EKG ECG with atrial fibrillation with RVR, rate 132, ST depression in the anterolateral leads, incomplete left bundle branch block Impression Assessment and Plan Patient is a 66-year-old male with a history of aortic valve replacement performed for bicuspid aortic valve and severe aortic regurgitation, paroxysmal atrial fibrillation, chronic systolic CHF, ascending thoracic aortic aneurysm, and possible hepatitis B who was brought in by EMS following V. fib cardiac arrest status post resuscitation. V. fib arrest/chronic systolic CHF/ascending thoracic aortic aneurysm/status post AVR-RILEY here shows EF of 20-25%, no thrombus in the left atrium. DVT is ruled out, there is no dissection of this thoracic aortic aneurysm. It seems his ventricular fibrillation may have been related to his severe cardiomyopathy. His reticulocyte catheterization was essentially normal. Swahili Teacher care is greatly appreciated. -Continue cooling protocol for 24 hours with appropriate sedation and pain management -Continue heparin drip -Trend troponin -Appreciate cardiology consultation -Follow electrolytes and renal function -If survives, will need an ICD and evaluation for repair of thoracic aortic aneurysm -Continue amiodarone drip DVT prophylaxis-heparin drip GI prophylaxis-IV Protonix Lines-Marie, left subclavian central venous catheter, left arterial line, PIV 2 in the right hand and wrist, OG tube Advanced Directives Existing Living Will: No (unknown) Existing Power of Eligibility Supervisor: No VTE Prophylaxis VTE Risk Assessment Done? Y/N: Yes Risk Level: High Given or contraindicated: Other Anticoagulation Additional Copies To Domenico Vines D.O. Pulmonary
[2016-09-21] VITALS (25 sets, daily range): BP systolic 55–137; BP diastolic 48–100; PULSE 44–76; TEMP 32.2–33.5; O2SAT 60–100
[2016-09-21 00:09] LABS: HEMATOCRIT 44.7 % (42-52); MEAN CELL VOLUME 90.9 fL (80-100); MEAN CORPUSCULAR HEMOGLOBIN 33.1 pg (25-34); MEAN CORPUSCULAR HGB CONC 36.5 g/dl (32-36); MEAN PLATELET VOLUME 9.2 fL (7.4-10.4); PLATELET COUNT 184 K/uL (130-400); RED BLOOD COUNT 4.92 M/uL (4.7-6.1); WHITE BLOOD COUNT 21.08 K/uL (4.8-10.8)
[2016-09-21] MEDS: ARTIFICIAL TEARS OP OINT 3.5 GM TUBE OPB PRN ×4 (00:11→11:26)
[2016-09-21 00:36] LABS: BLOOD UREA NITROGEN 15 mg/dl (7-18); BUN/CREATININE RATIO 17.7 (10-20); CALCIUM 7.2 mg/dl (8.5-10.1); CARBON DIOXIDE 22 mmol/L (21-32); CHLORIDE 106 mmol/L (98-107); CREATININE 0.86 mg/dl (0.60-1.40); GLUCOSE 198 mg/dl (70-99); INR 1.1 (0.9-1.1); MAGNESIUM 2.1 mg/dl (1.8-2.4); PHOSPHORUS 2.2 mg/dl (2.5-4.9); POTASSIUM 2.6 mmol/L (3.5-5.1); PROTHROMBIN TIME (PATIENT) 12.3 SECONDS (9.0-12.0); SODIUM 141 mmol/L (136-145)
--- NOTE | 2016-09-21 00:38 | Procedure Note ---
Procedure Note Procedure Date Sep 20, 2016. Central Line Procedure time out: side/site verified, sterile procedure used Consent obtained: emergent consent implied Time of procedure: 15:30 Performed by: attending Indications: central drug admin. Prep: chlorhexadine prep, sterile drape, sterile procedures used Central line lumen: triple Central line location: subclavian (L) Additional details: percutaneous placement, Selinger technique used, line sutured, good blood return CXR: appropriate position, no pneumothorax Complications: none Patient tolerated procedure: well Post-procedure vital signs: other (patient being actively resuscitated status post cardiac arrest, patient was hypotensive prior to start of procedure and blood pressure was increasing with the addition of norepinephrine during the procedure)
[2016-09-21] MEDS ORDERED: POTASSIUM PHOS 3 MMOL/1 ML INFUSION IV STA ×2 (00:50→10:00)
--- NOTE | 2016-09-21 00:55 | Critical Care Consultation ---
Critical Care Consultation Date of Consultation: Sep 20, 2016. Attending Physician: Reason for Consultation: Cardiac arrest, therapeutic hypothermia History of Present Illness History is obtained from prior medical records, emergency department physician, and EMS records. Patient is a 66-year-old male with a significant past medical history for aortic valve replacement in 2010 secondary to aortic insufficiency. This was complicated by atrial fibrillation he is not on anticoagulant it is unclear why this was discontinued. The original aortic valve was bicuspid, there was a concomitant aortic aneurysm. Patient has a history of nonsustained ventricular tachycardia. 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 There was possible report of an AED with shocks delivered prior to EMS arrival, for EMS they delivered shocks for what was reported to be ventricular fibrillation, I have not seen prehospital rhythm strips. Patient was intubated prior to arrival at [facility], cardiology was initially consult and plans were made to take the patient to the cathode washer. I was notified of a code arctic, patient was started to be cooled in the emergency department and continued while in the cardiac cathode washer. I discussed the case with Dr. Mendoza, he did not find significant cardiac disease requiring intervention. Past Medical/Surgical History Aortic valve replacement secondary to aortic insufficiency Aortic root dilatation Former smoker quit approximately 15 years ago History of atrial fibrillation History of anticoagulation use stopped for unknown reason History of nonsustained ventricular tachycardia Family History Unknown Unable to obtain secondary to intubation, prior records indicate no premature coronary artery disease as documented by Greg Le Social History Patient is a former smoker quit approximately 15 years ago, in 2010 was drinking 2-3 glasses of alcohol a day, denied any recreational drug use. He was had 3 children. This is from etiology notes of Dr. Le Smoking Status: Former Smoker Allergies Coded Allergies: No Known Allergies (Unverified , NONE, 09/20/16) Home Medications Scheduled Aspirin (Aspirin Tab-Chewable *), 81 MG PO DAILY Current Inpatient Medications Current Inpatient Medications Medications (Trade) Dose Ordered Sig/Christina Route Start Time Stop Time Status Last Admin Dose Admin Norepinephrine Bitartrate/ Dextrose (Levophed Inj/ D5W 500ml) 508 ml @ 0 mls/hr Q0M PRN IV 09/20/16 16:00 10/20/16 15:59 Review of Systems Unable to be obtained due to patient condition. Physical Exam Date Time Temp Pulse Resp B/P Pulse Ox O2 Delivery O2 Flow Rate FiO2 09/20/16 15:56 130 09/20/16 15:50 Mechanical Ventilator 09/20/16 15:48 109 93/64 97 09/20/16 15:47 118 64/61 95 Mechanical Ventilator 09/20/16 15:33 128 109/66 95 Ambu-Bag General Appearance: severe distress, obese Head: normocephalic, atraumatic Eyes: other (pupils equal round and reactive) Neck: trachea midline, supple, no thyromegaly Respiratory: rhonchi (scattered bilaterally) Cardiovasular: normal S1S2, abnormal pulses (1+ 4 extremities) Abdomen: no masses, no guarding, no organomegaly Genitourinary - Male: external genitalia normal Upper Extremities: no edema, no deformity Lower Extremities: no edema, no deformity Neuro: other (breathing over event, no response to painful stimuli) Psychiatric: other (unable to evaluate due to patient condition) Laboratory Results Last 24 Hours Test 09/20/16 15:29 09/20/16 15:37 09/20/16 15:42 09/20/16 15:49 Creatine Kinase MB Ratio White Blood Count 30.82 K/uL Red Blood Count 4.90 M/uL Hemoglobin 16.4 g/dL Hematocrit 46.0 % Mean Corpuscular Volume 93.9 fL Mean Corpuscular Hemoglobin 33.5 pg Mean Corpuscular Hemoglobin Concent 35.7 g/dl Platelet Count 213 K/uL Mean Platelet Volume 9.6 fL RDW Standard Deviation 45.0 fL RDW Coefficient of Variation 13.1 % Prothrombin Time 11.4 SECONDS Prothromb Time International Ratio 1.1 Activated Partial Thromboplast Time 26.4 SECONDS Partial Thromboplastin Ratio 1.0 Bedside Hemoglobin 16.3 g/dl Bedside Hematocrit 48 % Bedside Blood Gas pH (LAB) 7.03 7.13 Bedside Blood Gas pCO2 (LAB) 60 mmHg 43 mmHg Bedside Blood Gas pO2 (LAB) 78 mmHg 305 mmHg Bedside Blood Gas HCO3 (LAB) 16 meq/L 14 meq/L Bedside Blood Gas Total CO2 18 mEq/l 15 mEq/l Bedside Blood Gas Base Excess (LAB) -15.0 meq/L -15.0 meq/L Bedside Blood Gas O2 Saturation 87.0 % 100.0 % Bedside Sodium 137 mEq/L Bedside Potassium 3.9 mEq/L Assessment & Plan Neuro: Acute encephalopathy - Therapeutic hypothermia for 24 hours - On neuromuscular blockade secondary to shivering - BIS goal less than 60 while under the influence of neuromuscular blockade Cardiovascular Status post cardiac arrest from presumptive torsade depoints as reported by EMS - Was able to wean off norepinephrine Aortic root dilatation - Transesophageal echocardiogram completed by Dr. Palomo - No evidence of acute dissection - Will require systemic anticoagulation discussed this with Dr. Palomo - PE is still possibly in the differential however clinical course most consistent with cardiac arrest Frequent premature ventricular contractions - Started low dose metoprolol, as blood pressure improved Respiratory - Full ventilator support Abdomen - Monitor for transaminitis - Will start trickle/trophic feeds as patient now off vasopressors -Start Peptamen bariatric at 10 ML's per hour Renal - Normal sore running at 125 -Match urine output keep globally even - Replete potassium as needed during hypothermia Endocrine - Monitor blood sugars goal range 140-180 - Hemoglobin A1c pending Hematology - Heparin infusion Infectious disease - Monitor fever curve I have personally spent 120 minutes of critical care time in the direct management of this patient. This is a life/limb threatening event. This includes time spent evaluating patient, direct bedside care, chart review, placing orders, interpretation of diagnostic studies, discussion with consultants, patient, and family members, as well as other required patient management activities. This time is exclusive of all separately billable procedures, and teaching time and separate from and in addition to any other critical care service time.
[2016-09-21 01:18] LABS: BASO ABS # 0.01 K/uL (0-0.2); COMPLETE YES; LYMPH % 4.4 %; LYMPH ABS # 0.92 K/uL (1.2-3.4); MONO % 6.3 %; NEUT % 88.3 %
[2016-09-21] MEDS ORDERED: POTASSIUM PHOSPHATE INJ 18 MMOL in SODIUM CHLORIDE 0.9% 500ML 500 ML IV ONE ×2 (01:30→22:30)
[2016-09-21 01:43] LABS: BENZODIAZEPINE, URINE POS (NEG); COCAINE,URINE NEG (NEG); PHENCYCLIDINE, URINE NEG (NEG)
[2016-09-21] MEDS: CISATRACURIUM BESYLATE INJ 40 MG in SODIUM CHLORIDE 0.9% 100ML 80 ML IV PRN ×3 (02:36→18:37)
[2016-09-21] MEDS: POTASSIUM CHLR 20 MEQ / WTR 20 MEQ in PREMIXED WATER 100 ML IV SCH ×5 (03:34→12:22)
[2016-09-21 03:52] LABS: HEMATOCRIT 41.2 % (42-52); MEAN CELL VOLUME 87.5 fL (80-100); MEAN CORPUSCULAR HEMOGLOBIN 32.7 pg (25-34); MEAN CORPUSCULAR HGB CONC 37.4 g/dl (32-36); MEAN PLATELET VOLUME 8.9 fL (7.4-10.4); PLATELET COUNT 161 K/uL (130-400); RED BLOOD COUNT 4.71 M/uL (4.7-6.1); WHITE BLOOD COUNT 17.74 K/uL (4.8-10.8)
[2016-09-21 04:01] LABS: ISTAT ARTERIAL BLOOD GAS HCO3 21 meq/L (19-24); ISTAT ARTERIAL BLOOD GAS PCO2 35 mmHg (35-46); ISTAT ARTERIAL BLOOD GAS PO2 176 mmHg (80-95); ISTAT ARTERIAL BLOOD GAS pH 7.36 (7.35-7.45); ISTAT CARBON DIOXIDE 22 mEq/l (24-31); ISTAT DELIVERY SYSTEM Ventilator; ISTAT FIO2 60 %; ISTAT PEEP 12; ISTAT RATE 24; ISTAT SITE Art Line; VE 12.3; Vt 550
[2016-09-21] MEDS: NORMOSOL R 1,000 ML IV SCH ×3 (04:09→17:09)
[2016-09-21 04:16] LABS: INR 1.2 (0.9-1.1); PARTIAL THROMBOPLASTIN RATIO 4.4; PROTHROMBIN TIME (PATIENT) 12.6 SECONDS (9.0-12.0)
[2016-09-21 04:24] LABS: BUN/CREATININE RATIO 22.2 (10-20); CALCIUM 6.8 mg/dl (8.5-10.1); CREATININE 0.6 mg/dl (0.60-1.40); PHOSPHORUS 3.2 mg/dl (2.5-4.9); POTASSIUM 3.2 mmol/L (3.5-5.1)
[2016-09-21 05:23] LABS: BASO % 0.1 %; BASO ABS # 0.01 K/uL (0-0.2); COMPLETE YES; IG% 0.6 %; LYMPH % 4.6 %; LYMPH ABS # 0.81 K/uL (1.2-3.4); MONO % 5.3 %; NEUT % 89.4 %
[2016-09-21 05:26] LABS: ISTAT ARTERIAL BLOOD GAS HCO3 25 meq/L (19-24); ISTAT ARTERIAL BLOOD GAS PCO2 33 mmHg (35-46); ISTAT ARTERIAL BLOOD GAS PO2 184 mmHg (80-95); ISTAT ARTERIAL BLOOD GAS pH 7.47 (7.35-7.45); ISTAT CARBON DIOXIDE 26 mEq/l (24-31); ISTAT DELIVERY SYSTEM Ventilator; ISTAT FIO2 60 %; ISTAT PEEP 8; ISTAT RATE 24; ISTAT SITE Art Line; VE 12.4; Vt 550
[2016-09-21] MEDS: HEPARIN 25,000 UNIT/500ML D5W 500 ML IV PRN ×3 (05:28→21:20)
[2016-09-21 06:31] LABS: ESTIMATED AVERAGE GLUCOSE 105 mg/dl; HA1C FLAG Normal (Normal)
--- NOTE | 2016-09-21 07:11 | CARDIOLOGY CONSULTATION ---
DATE OF CONSULTATION: 09/20/2016 HISTORY OF PRESENT ILLNESS: Chris Henriquez is a 66-year-old male seen in cardiology consultation per the request of Dr. Rowe for ongoing cardiac evaluation, given the patient's presentation with cardiac arrest. The patient has a complex cardiac history as noted below. Today, he was at an appointment with his daughter and he was apparently noted to be in his normal state of health until at approximately 2:30, he spontaneously lost consciousness and stopped breathing. Bystander CPR was initiated and apparently, the police were the first to arrive. The patient was treated with CPR and received 2-3 AED discharges for presumed ventricular fibrillation versus pulseless ventricular tachycardia. EMS arrived and he was still reportedly in ventricular fibrillation and received 4 more defibrillations and also received 4 doses of IV epinephrine and a bolus of IV amiodarone 300 mg. Spontaneous return of circulation and rhythm was subsequently noted with presenting EKG revealing atrial fibrillation with mild ventricular rate and mild diffuse ST segment depression. Due to concerns that his cardiac arrest was due to ischemia, the patient was taken to the cardiac catheterization laboratory on an emergent fashion by Dr. Mendoza and underwent coronary angiography which revealed no significant CAD. The patient was then transferred to the intensive care unit where he was seen by the undersigned in consultation. A bedside transthoracic and end-transesophageal echocardiogram was performed, revealing severe global left ventricular systolic dysfunction. Normal bioprosthetic aortic valve function without any significant aortic stenosis or aortic regurgitation. Mild mitral regurgitation. No left atrial appendage thrombus. There is no evidence of ascending thoracic aortic dissection. The right ventricle chamber size and systolic function were normal. He is currently in the intensive care unit on infusions of Versed and fentanyl for sedation and he has received an IV paralytic. Amiodarone is infusing at 1 mg per minute and he is on a low dose of norepinephrine. His systolic blood pressure is currently stable with most recent reading of 160/119. He is oxygenating well on the ventilator. His cardiac history dates back to 2010 when he apparently presented with progressive shortness of breath and underwent transesophageal echocardiogram and cardiac catheterization with findings of bicuspid aortic valve regurgitation. The LV ejection fraction was moderately reduced at the time of his preoperative evaluation, 35-39%. Cardiac catheterization at that time revealed mild luminal irregularities. The ascending aorta was dilated with a maximum dimension of 5.2 cm. He was seen in consultation by CT surgery at [facility] and on 11/02/2010, underwent aortic valve replacement, receiving a 23 mm Shaylee-Bueno pericardial bioprosthesis. Postoperative complications included atrial fibrillation and atrial flutter and acute blood loss anemia. Prior to discharge on 11/07/2010, he had apparently reverted back to normal sinus rhythm. He presented again and was seen by our practice as an outpatient in 2010 and underwent direct current cardioversion. At that time, he was on Coumadin. Outpatient echocardiogram performed postoperatively in 2010 revealed moderate LV systolic dysfunction with an ejection fraction of 35-39%. His next echocardiogram had been performed in April 2011, at which time mild LV systolic dysfunction was noted with a qualitative ejection fraction of 45-49%, abnormal septal motion was noted consistent with a postoperative state and mild global hypokinesis was noted otherwise. He did not keep close cardiology followup after 2010 and he resurfaced to our cardiology practice in September 2014 with a single outpatient visit with Dr. Le of our practice, at which time the patient was doing well clinically. He was in atrial fibrillation but was no longer on Coumadin. Tests including a transthoracic echocardiogram and a 24-hour Holter monitor were requested. The Holter monitor performed in September 2014 revealed a predominant rhythm of atrial fibrillation with frequent ventricular ectopy in the form of isolated PVCs, ventricular couplets and 1 nimco of nonsustained ventricular tachycardia of 13 beats in duration with offset to atrial fibrillation. The patient was counseled to continue his metoprolol and followup was recommended. An echocardiogram had been ordered but the patient never kept this appointment. The patient subsequently missed a subsequent followup appointment on 10/08/2014 and again on 04/08/2015. PAST MEDICAL HISTORY: 1. Apparent bicuspid valve aortic stenosis and cardiomyopathy, for which he underwent bioprosthetic aortic valve replacement in 2010. 2. Thoracic aortic aneurysm. 3. Hepatitis the 1970s. PAST SURGICAL HISTORY: As outlined above with cardiac surgery and cardiac catheterization in 2010, repeat cardiac catheterization today. FAMILY HISTORY: Mother apparently at age 60, secondary to ovarian cancer. Per his outpatient chart, his father in an accident. SOCIAL HISTORY: He is a nonsmoker. 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 COMPREHENSIVE REVIEW OF SYSTEMS: Unobtainable due to the patient's current mental status, sedated on the ventilator. ALLERGIES: No known drug allergies. HOME MEDICATIONS: Aspirin 81 mg daily. Apparently, the patient is not taking any other medications. PHYSICAL EXAMINATION: VITAL SIGNS: Temperature 36.3 rectal, heart rate is 84, rhythm is atrial fibrillation, blood pressure 154/94. GENERAL APPEARANCE: Ill in appearance, hypothermia protocol enacted. NECK: No bruits. CARDIOVASCULAR: Irregular rhythm. No murmurs. LUNGS: Decreased breath sounds at bases. ABDOMEN: Nontender. EXTREMITIES: No edema. NEUROLOGIC: He is currently paralyzed. LAB DIAGNOSTIC DATA: EKG as outlined above. WBC 30,000 and platelet count 213. INR 1.1. Sodium 139, potassium 3.9, BUN 14, creatinine 1.3. Initial troponin 0.28. ProBNP 1744 pg/mL. TSH 12.4 micro international units per liter. CT of the brain, no acute intracranial abnormality. Echocardiogram results including stat transthoracic and transesophageal echocardiogram summarized above with findings of severe global left ventricular hypokinesis, LV ejection fraction in the 20-25% range. IMPRESSION: 66-year-old male. 1. Apparent cardiac arrest, likely due to ventricular arrhythmia in the setting of nonischemic cardiomyopathy with patient having patent coronary arteries on an emergent cardiac catheterization today. 2. Chronic persistent atrial fibrillation, not on anticoagulation due to medical nonadherence. 3. Apparent hypothyroidism. DISCUSSION AND RECOMMENDATIONS: I had a discussion with the patient's daughter and his significant other. The patient's physical health had apparently recently been stable. He walked regularly and [place] He does travel and recently completed a long car ride back from [place] about 5 days ago. He reportedly had not reestablished with a different cardiology practice and apparently has not been followed closely in terms of his cardiomyopathy, At the present time, we will continue his current medication support with IV amiodarone, norepinephrine will be weaned as his blood pressure tolerates. Continue sedation for therapeutic hypothermia with paralytics. Recommend initiation of unfractionated heparin infusion, given his atrial fibrillation. He has no left atrial appendage thrombus, but stasis in the left atrium was noted with spontaneous echo contrast and he is at risk for developing left atrial appendage thrombus. His CT ruled out intracranial hemorrhage. Also, I think it would be reasonable to cover him with heparin, in case he does have a pulmonary embolism. Although this is less likely cause of his arrest today, he did have a recent travel history. In order to avoid further doses of IV contrast, we will proceed with heparin and we will proceed with lower extremity venous duplex. His normal right ventricular systolic function would predict that he does not have a hemodynamically significant pulmonary embolism that would have caused his event today. MICHELLE
--- NOTE | 2016-09-21 07:14 | DIAGNOSTIC IMAGING REPORT ---
CHEST ONE VIEW PORTABLE CLINICAL HISTORY: intubation tube position COMPARISON STUDY: 09/20/2016 FINDINGS: Endotracheal tube 5 cm above the ethan. Nasogastric tube inferior to the diaphragm. Improved aeration left hemithorax. Diminished pulmonary vasculature. IMPRESSION: Improved exam with improved aeration of the left lung and right perihilar region. Tubes and lines positioned as noted Electronically signed by: Onur Dennis M.D. 09/21/2016 7:13 AM Dictated Date/Time: 09/21/2016 7:12 AM
[2016-09-21] MEDS: INSULIN ASPART 100 UNITS/ML 3 ML PEN SC SCH ×4 (07:45→21:00)
--- NOTE | 2016-09-21 07:55 | Critical Care Progress Note ---
Critical Care Progress Note Date of Service Sep 21, 2016. ICU Day ICU Day Number: [address] Rowe Subjective Patient sedated with paralytics, unable to verbalize questions Nursing notes cooler has only been monitoring patient temp stable at 32 No other issues overnight Nursing notes patient has had labile PTTs due to concurrent cooling Objective Constitutional: Vital signs review below Eyes: Pupils equal, round, and reactive to light. Extraocular muscles are intact. No proptosis. No photophobia. ENT: Mucous membranes are moist. Oropharynx is clear. No sinus tenderness. TMs are clear bilaterally. ET tube in place OG tube in place Cardiovascular: Heart with a regular rate and rhythm. Pulses are palpable and symmetric in all 4 extremities. No pedal edema appreciated. Bradycardia, rate 40s Respiratory: Lungs clear to auscultation bilaterally. No wheezes, rales, or rhonchi appreciated. No accessory muscle use. No retractions. No increased work of breathing. On mechanical ventilation GI: Abdomen soft, nontender, nondistended. Normal active bowel sounds. No abdominal hernias appreciated. No rebound. No guarding. : No CVA tenderness appreciated. Musculoskeletal: No midline cervical or vertebral tenderness. No gross deformities. No bony tenderness. No calf swelling or tenderness. Integumentary: Warm, dry, no rashes appreciated. Sternal abrasion palomino; CURLY compression site IV access sites intact without evidence of infection Neurological: RASS -4 Lymph: No cervical lymphadenopathy appreciated. Assessment & Plan 66 year old male, day 2 of ICU admission, admitted for out-of hospital Vfib arrest. Patient is currently on therapeutic hypothermia protocol. Remained stable overnight. Problem list includes: - S/p V. fib arrest - S/p aortic valve replacement/bicuspid aortic valve - Acute congestive heart failure with reduce EF 20-25% - Thoracic aortic aneurysm stable - Paroxysmal atrial fibrillation - Possible Hep B infection NEUROLOGICAL - GCS: 3 - Sedation: Versed running @ 2 mg/h; BIS goal < 60 Cistrocurionium running at 0.5 mcg/kg/min; goal Train of 4s 2/4 - RASS: -4 Keep Goal RASS -4 - Pain regimen: Fentanyl 25 mcg/hr Demerol 25 mg q 2 hours - Patient did have report downtime 10 minutes prior to EMS arrival; will continue to follow for possibility of anoxic brain injury - EEG today pending CARDIAC - BP: 90-130 systolic; MAP 70-90 - Vasopressor support: No vasopressors - IV Fluids: Normasol R running @ 150 ml/hr - Day 1 s/p cardiac catheterization with clean coronaries - Cardiology consulted - Status Post-Vfib arrest - Therapeutic hypothermia protocol - Continue cooling protocol until 21:00 - Acute Systolic CHF with reduced EF - EF 20-25% - Hold ACEi and Beta dean due to borderline BP - History of Paroxysmal Atrial Fibrillation - Rate currently controlled 40-60 - No on rate or rhythm control in ambulatory setting - No anticoagulation in the outpatient setting - Continue IV heparin - Continue Amiodarone infusion RESPIRATORY - RR: 24 SpO2: 95 - Ventilator settings: RR 24 / FiO2 60% / Vt 550 / PEEP 8 / - AB.47 / 33 / 184 / Bicarb 25 --> respiratory alkalosis; hyperoxia, should be reduced to minimized O2 toxicity Reduce FiO2 to 50%; reduce respiratory rate to 20 - Continue mechanical ventilation as patient will continue to require paralytics and sedation until he is 24 hours of being on hypothermia protocol GASTROINTESTINAL - Diet: OG tube in place; start trophic feeds as patient is not on vasopressor therapy - GI Prophylaxis: Protonix 40 mg QD - Bowel regimen: No BM yet since admission; will continue to follow RENAL//ENDOCRINE - Fluid Balance Cumulative: + 200 ml - Follow urine output: Goal 0.5 ml/kg/day - Cr: 0.6 - Electrolytes: 0300 Labs: Na 142; L 3.2; Cl 108; HCO3 23; BUN 15; Cr. 0.6 ; Mg 2.0; Phos 3.2 ; Calcium 6.8 ; ical 0.95 0800 Labs: Na 142; K 3.5; Cl 109; HCO3 23 ; BUN 12; Cr. 0.54; Mg 2.1; Phos 2.2 - IV Fluids: Normasol-R @ 150 ml/hr - Goal Fluid Balance: Net Even - BS - 200 Continue Insulin infusion per protocol q4h Acuchecks Hypocalcemia - 2 g calcium gluconate now Hypokalemia - KCl running at 50 ml/hr Hypophosphatemia - 15 mmol KPhos one HEME/INFECTIOUS DISEASE - Tmax: 32 WBC: 17 - Hb/Hct 15/41 - Plt; 161 - Antibiotics: None - DVT Prophylaxis IV Heparin infusion LINES/IV ACCESS - Left radial arterial catheter - Right 18 G peripheral IV - Left subclavian triple-lumen CVC CODE STATUS - Full Code DISPOSITION - OT/PT: Recommended following weaning from sedation and post-hypothermia protocol - Requires ICU stay for hypothermia protocol, continuous IV sedation, and cardiac monitoring Resident Physician Supervision Note: Dr. Blount was resident physician during care of patient. I separately evaluated patient and did history and exam. I discussed the case with the resident and generally agree with the findings and plan. Continue theraputic hypothermia. Trophic feeds at this time. I have personally spent 40 minutes of critical care time in the direct management of this patient. This is a life/limb threatening event. This includes time spent evaluating patient, direct bedside care, chart review, placing orders, interpretation of diagnostic studies, discussion with consultants, patient, and family members, as well as other required patient management activities. This time is exclusive of all separately billable procedures, and teaching time and separate from and in addition to any other critical care service time. Documented By: Danielito Rowe DO Consults & Procedures Consultants: Cardiology Procedures: CVC, see separate procedure note Arterial Line placement, see separate procedure note Data Medications: Current Inpatient Medications Medications (Trade) Dose Ordered Sig/Christina Route Start Time Stop Time Status Last Admin Dose Admin Artificial Tears 1 appln 1 appln Q2H PRN OPB 09/20/16 17:00 10/20/16 16:59 09/21/16 04:00 1 APPLN Pantoprazole Sodium 40 mg/ Syringe 10 ml @ 5 mls/min DAILY@11 IV 09/21/16 11:00 10/21/16 10:59 Midazolam HCl (Midazolam 125MG/ 250ML D5w) 250 ml @ 0 mls/hr Q0M PRN IV 09/20/16 16:57 10/20/16 16:56 Meperidine HCl 25 mg 25 mg Q2H PRN IV 09/20/16 17:00 10/04/16 16:59 Fentanyl Citrate 250 ml @ 0 mls/hr Q0M PRN IV 09/20/16 16:57 10/04/16 16:56 Amiodarone HCL/ Dextrose 200 ml @ 16.7 mls/hr [id number] IV 09/20/16 23:15 10/20/16 23:14 09/20/16 23:25 16.7 MLS/HR Norepinephrine Bitartrate/ Dextrose (Levophed Inj/ D5W 500ml) 508 ml @ 0 mls/hr Q0M PRN IV 09/20/16 17:30 10/20/16 17:29 Insulin Aspart SLIDING SCALE PCHS SC 09/20/16 21:00 10/20/16 20:59 Parenteral Electrolyte Solution 1,000 ml @ 125 mls/hr Q8H IV 09/20/16 17:30 10/20/16 17:29 09/21/16 04:09 125 MLS/HR Cisatracurium Besylate/Sodium Chloride (Nimbex INJ/Nss 100ml) 100 ml @ 0 mls/hr Q0M PRN IV 09/20/16 17:45 10/20/16 17:44 09/21/16 02:36 8 MLS/HR Miscellaneous Information 1 ea 1 ea per protocol PRN N/A 09/20/16 17:30 09/27/16 17:29 Insulin Human Regular/Sodium Chloride (novoLIN-R/Nss 250ml) 252.5 ml @ 0 mls/hr DAILY@1130 IV 09/20/16 18:00 10/20/16 17:59 09/20/16 18:32 2.6 MLS/HR Glucose (Glucose 40% Gel) 15-30 GRAMS 15 GRAMS... UD PRN PO 09/20/16 18:00 10/20/16 17:59 Glucose (Glucose Chew Tab) 4-8 Tablets 4 Tabl... UD PRN PO 09/20/16 18:00 10/20/16 17:59 Dextrose (Dextrose 50% 50ML Syringe) 25-50ML OF 50% DW IV FOR... UD PRN IV 09/20/16 18:00 10/20/16 17:59 Glucagon 1 mg 1 mg UD PRN SQ 09/20/16 18:00 10/20/16 17:59 Heparin Sodium/ Dextrose (Heparin 25,000 Unit/500ml D5W) 500 ml @ 27 mls/hr [id number] PRN IV 09/20/16 20:45 10/20/16 20:44 09/21/16 05:28 27 MLS/HR Enteral Nutritional Formula 1000 ml 1,000 ml UD OG 09/21/16 09:00 10/21/16 08:59 Potassium Chloride/Prmx (Kcl 20 Meq / Wtr/Premixed Water) 100 ml @ 50 mls/hr Q2H IV 09/21/16 03:30 09/21/16 13:29 09/21/16 05:39 50 MLS/HR Heparin Sodium (Porcine) (Heparin 10 Unit/ ml 5 ml Flush) 5 ml PRN PRN FLUSH 09/21/16 01:15 10/21/16 01:14 I & O: 24-Hour Column 09/21/16 08:00 Intake Total 2523 ml Output Total 2330 ml Balance 193 ml Vital Signs: Date Time Temp Pulse Resp B/P Pulse Ox O2 Delivery O2 Flow Rate FiO2 09/21/16 07:28 50 09/21/16 07:02 32.6 58 20 109/83 100 Mechanical Ventilator 09/21/16 06:01 32.5 45 20 102/72 100 Mechanical Ventilator 09/21/16 05:16 50 09/21/16 05:10 60 09/21/16 05:01 32.3 48 24 103/75 100 Mechanical Ventilator 09/21/16 04:00 60 09/21/16 04:00 32.2 62 24 118/86 94 Mechanical Ventilator 09/21/16 04:00 60 09/21/16 03:50 60 09/21/16 02:59 32.2 49 24 99/71 100 Mechanical Ventilator 09/21/16 02:00 32.3 44 24 96/67 100 Mechanical Ventilator 09/21/16 01:42 60 09/21/16 01:01 32.4 54 24 115/81 100 Mechanical Ventilator 09/21/16 00:00 60 09/21/16 00:00 60 09/21/16 00:00 32.8 59 24 133/85 97 Mechanical Ventilator 09/20/16 23:36 60 09/20/16 23:30 60 09/20/16 23:00 32.4 65 24 159/102 93 09/20/16 22:02 34.0 72 24 152/98 98 09/20/16 21:14 98 155/107 09/20/16 21:00 34.5 84 24 155/107 97 09/20/16 20:19 60 09/20/16 20:00 35.0 85 24 154/112 97 09/20/16 20:00 98 Mechanical Ventilator 60 09/20/16 20:00 60 09/20/16 19:45 83 24 136/97 09/20/16 19:30 81 24 145/109 09/20/16 19:15 91 24 137/100 09/20/16 19:00 35.4 99 24 105/60 97 Mechanical Ventilator 60 09/20/16 18:47 79 24 142/101 94 09/20/16 18:45 84 24 09/20/16 18:30 92 24 157/108 09/20/16 18:23 50 09/20/16 18:15 82 24 160/119 09/20/16 18:00 35.8 99 24 105/60 94 Mechanical Ventilator 60 09/20/16 17:45 83 24 142/100 09/20/16 17:36 35.9 99 24 105/60 94 Mechanical Ventilator 60 09/20/16 17:30 111 23 82 09/20/16 17:15 90 25 67 09/20/16 16:45 36.3 99 24 105/60 94 Mechanical Ventilator 50 09/20/16 16:45 36.3 99 24 105/60 94 Mechanical Ventilator 50 09/20/16 15:56 130 09/20/16 15:50 Mechanical Ventilator 09/20/16 15:48 109 93/64 97 09/20/16 15:47 118 64/61 95 Mechanical Ventilator 09/20/16 15:33 128 109/66 95 Ambu-Bag Laboratory Results: Last 24 Hours Test 09/20/16 15:37 09/20/16 15:42 09/20/16 15:49 09/20/16 16:57 White Blood Count 30.82 K/uL Red Blood Count 4.90 M/uL Hemoglobin 16.4 g/dL Hematocrit 46.0 % Mean Corpuscular Volume 93.9 fL Mean Corpuscular Hemoglobin 33.5 pg Mean Corpuscular Hemoglobin Concent 35.7 g/dl Platelet Count 213 K/uL Mean Platelet Volume 9.6 fL RDW Standard Deviation 45.0 fL RDW Coefficient of Variation 13.1 % Neutrophils % (Manual) 55.0 % Lymphocytes % (Manual) 36.0 % Monocytes % (Manual) 5.4 % Eosinophils % (Manual) 0.9 % Metamyelocytes % 1.8 % Myelocytes % 0.9 % Neutrophils # (Manual) 16.95 K/uL Total Absolute Neutrophils 16.95 K/uL Lymphocytes # (Manual) 11.10 K/uL Total Absolute Lymphocytes 11.10 K/uL Monocytes # (Manual) 1.66 K/uL Eosinophils # (Manual) 0.28 K/uL Metamyelocytes # 0.55 K/uL Myelocytes # 0.28 K/uL Prothrombin Time 11.4 SECONDS Prothromb Time International Ratio 1.1 Activated Partial Thromboplast Time 26.4 SECONDS Partial Thromboplastin Ratio 1.0 Sodium Level 139 mmol/L Potassium Level mmol/L Chloride Level 104 mmol/L Carbon Dioxide Level 18 mmol/L Anion Gap 17.0 mmol/L Blood Urea Nitrogen 14 mg/dl Creatinine 1.30 mg/dl Estimated GFR () 66.4 Estimated GFR (Non- 57.3 BUN/Creatinine Ratio 11.1 Random Glucose 268 mg/dl Calcium Level 8.3 mg/dl Magnesium Level mg/dl Total Bilirubin 0.5 mg/dl Direct Bilirubin mg/dl Aspartate Amino Transf (AST/SGOT) U/L Alanine Aminotransferase (ALT/SGPT) 59 U/L Alkaline Phosphatase 99 U/L Total Creatine Kinase U/L Creatine Kinase MB 5.5 ng/ml Creatine Kinase MB Ratio Troponin I 0.280 ng/ml Pro-B-Type Natriuretic Peptide 1744 pg/ml Total Protein 6.9 gm/dl Albumin 3.8 gm/dl Lipase 296 U/L Thyroid Stimulating Hormone (TSH) 12.400 uIu/ml Free Thyroxine 0.83 ng/dl Bedside Hemoglobin 16.3 g/dl Bedside Hematocrit 48 % Bedside Blood Gas pH (LAB) 7.03 7.13 Bedside Blood Gas pCO2 (LAB) 60 mmHg 43 mmHg Bedside Blood Gas pO2 (LAB) 78 mmHg 305 mmHg Bedside Blood Gas HCO3 (LAB) 16 meq/L 14 meq/L Bedside Blood Gas Total CO2 18 mEq/l 15 mEq/l Bedside Blood Gas Base Excess (LAB) -15.0 meq/L -15.0 meq/L Bedside Blood Gas O2 Saturation 87.0 % 100.0 % Bedside Sodium 137 mEq/L Bedside Potassium 3.9 mEq/L Test 09/20/16 17:24 09/20/16 18:15 09/20/16 18:21 09/20/16 18:44 Potassium Level 3.7 mmol/L Bedside Glucose (other) 209 mg/dl 237 mg/dl Estimated Average Glucose 105 mg/dl Hemoglobin A1c 5.3 % Magnesium Level 2.3 mg/dl Direct Bilirubin 0.2 mg/dl Aspartate Amino Transf (AST/SGOT) 76 U/L Total Creatine Kinase 686 U/L Creatine Kinase MB 13.0 ng/ml Creatine Kinase MB Ratio 1.9 Troponin I 1.700 ng/ml Random Cortisol 58.24 mcg/dl Blood Gas Sample Site L Radial Bedside Blood Gas pH (LAB) 7.28 Bedside Blood Gas pCO2 (LAB) 45 mmHg Bedside Blood Gas pO2 (LAB) 58 mmHg Bedside Blood Gas HCO3 (LAB) 21 meq/L Bedside Blood Gas Total CO2 23 mEq/l Bedside Blood Gas Base Excess (LAB) -6.0 meq/L Bedside Blood Gas O2 Saturation 88.0 % Augustine Test Pass Oxygen Delivery Device Ventilator Bedside Oxygen Rate (breaths/min) 24 Blood Gas Minute Ventilation 12.4 Bedside FiO2 50 % Blood Gas Tidal Volume 550 Blood Gas PEEP 5 Test 09/20/16 19:35 09/20/16 20:38 09/20/16 21:42 09/20/16 22:40 Bedside Glucose (other) 223 mg/dl 215 mg/dl 219 mg/dl 212 mg/dl Test 09/20/16 23:31 09/20/16 23:37 09/20/16 23:48 09/21/16 00:43 Blood Gas Sample Site Art Line Bedside Blood Gas pH (LAB) 7.28 Bedside Blood Gas pCO2 (LAB) 38 mmHg Bedside Blood Gas pO2 (LAB) 68 mmHg Bedside Blood Gas HCO3 (LAB) 19 meq/L Bedside Blood Gas Total CO2 20 mEq/l Bedside Blood Gas Base Excess (LAB) -9.0 meq/L Bedside Blood Gas O2 Saturation 94.0 % Augustine Test NA Oxygen Delivery Device Ventilator Bedside Oxygen Rate (breaths/min) 24 Blood Gas Minute Ventilation 16.5 Bedside FiO2 60 % Blood Gas Tidal Volume 550 Blood Gas PEEP 5 Bedside Glucose (other) 208 mg/dl 198 mg/dl White Blood Count 21.08 K/uL Red Blood Count 4.92 M/uL Hemoglobin 16.3 g/dL Hematocrit 44.7 % Mean Corpuscular Volume 90.9 fL Mean Corpuscular Hemoglobin 33.1 pg Mean Corpuscular Hemoglobin Concent 36.5 g/dl Platelet Count 184 K/uL Mean Platelet Volume 9.2 fL Neutrophils (%) (Auto) 88.3 % Lymphocytes (%) (Auto) 4.4 % Monocytes (%) (Auto) 6.3 % Eosinophils (%) (Auto) 0.0 % Basophils (%) (Auto) 0.0 % Neutrophils # (Auto) 18.60 K/uL Lymphocytes # (Auto) 0.92 K/uL Monocytes # (Auto) 1.32 K/uL Eosinophils # (Auto) 0.01 K/uL Basophils # (Auto) 0.01 K/uL RDW Standard Deviation 43.0 fL RDW Coefficient of Variation 12.9 % Immature Granulocyte % (Auto) 1.0 % Immature Granulocyte # (Auto) 0.22 K/uL Prothrombin Time 12.3 SECONDS Prothromb Time International Ratio 1.1 Activated Partial Thromboplast Time 52.1 SECONDS Partial Thromboplastin Ratio 2.0 Sodium Level 141 mmol/L Potassium Level 2.6 mmol/L Chloride Level 106 mmol/L Carbon Dioxide Level 22 mmol/L Anion Gap 13.0 mmol/L Blood Urea Nitrogen 15 mg/dl Creatinine 0.86 mg/dl Est Creatinine Clear Calc Drug Dose 106.1 ml/min Estimated GFR () 105.5 Estimated GFR (Non- 91.0 BUN/Creatinine Ratio 17.7 Random Glucose 198 mg/dl Calcium Level 7.2 mg/dl Phosphorus Level 2.2 mg/dl Magnesium Level 2.1 mg/dl Creatine Kinase MB 36.0 ng/ml Creatine Kinase MB Ratio Troponin I 3.830 ng/ml Test 09/21/16 00:57 09/21/16 01:40 09/21/16 02:43 09/21/16 03:45 Creatine Kinase MB Ratio Bedside Glucose (other) 199 mg/dl 190 mg/dl White Blood Count 17.74 K/uL Red Blood Count 4.71 M/uL Hemoglobin 15.4 g/dL Hematocrit 41.2 % Mean Corpuscular Volume 87.5 fL Mean Corpuscular Hemoglobin 32.7 pg Mean Corpuscular Hemoglobin Concent 37.4 g/dl Platelet Count 161 K/uL Mean Platelet Volume 8.9 fL Neutrophils (%) (Auto) 89.4 % Lymphocytes (%) (Auto) 4.6 % Monocytes (%) (Auto) 5.3 % Eosinophils (%) (Auto) 0.0 % Basophils (%) (Auto) 0.1 % Neutrophils # (Auto) 15.88 K/uL Lymphocytes # (Auto) 0.81 K/uL Monocytes # (Auto) 0.94 K/uL Eosinophils # (Auto) 0.00 K/uL Basophils # (Auto) 0.01 K/uL RDW Standard Deviation 41.0 fL RDW Coefficient of Variation 12.8 % Immature Granulocyte % (Auto) 0.6 % Immature Granulocyte # (Auto) 0.10 K/uL Prothrombin Time 12.6 SECONDS Prothromb Time International Ratio 1.2 Activated Partial Thromboplast Time 115.0 SECONDS Partial Thromboplastin Ratio 4.4 Sodium Level 142 mmol/L Potassium Level 3.2 mmol/L Chloride Level 108 mmol/L Carbon Dioxide Level 23 mmol/L Anion Gap 11.0 mmol/L Blood Urea Nitrogen 13 mg/dl Creatinine 0.60 mg/dl Est Creatinine Clear Calc Drug Dose 152.1 ml/min Estimated GFR () 122.3 Estimated GFR (Non- 105.5 BUN/Creatinine Ratio 22.2 Random Glucose 177 mg/dl Calcium Level 6.8 mg/dl Ionized Calcium 0.95 mmol/l Phosphorus Level 3.2 mg/dl Magnesium Level 2.0 mg/dl Troponin I 3.420 ng/ml Test 09/21/16 03:46 09/21/16 03:53 09/21/16 04:50 09/21/16 05:10 Blood Gas Sample Site Art Line Art Line Bedside Blood Gas pH (LAB) 7.36 7.47 Bedside Blood Gas pCO2 (LAB) 35 mmHg 33 mmHg Bedside Blood Gas pO2 (LAB) 176 mmHg 184 mmHg Bedside Blood Gas HCO3 (LAB) 21 meq/L 25 meq/L Bedside Blood Gas Total CO2 22 mEq/l 26 mEq/l Bedside Blood Gas Base Excess (LAB) -6.0 meq/L 0.0 meq/L Bedside Blood Gas O2 Saturation 100.0 % 100.0 % Augustine Test NA NA Oxygen Delivery Device Ventilator Ventilator Bedside Oxygen Rate (breaths/min) 24 24 Blood Gas Minute Ventilation 12.3 12.4 Bedside FiO2 60 % 60 % Blood Gas Tidal Volume 550 550 Blood Gas PEEP 12 8 Bedside Glucose (other) 178 mg/dl 167 mg/dl Test 09/21/16 06:35 Bedside Glucose (other) 152 mg/dl
[2016-09-21] MEDS: AMIODARONE / D5W 200 ML IV SCH ×2 (08:20→18:26)
[2016-09-21 08:24] LABS: BASO % 0.1 %; BASO ABS # 0.01 K/uL (0-0.2); COMPLETE YES; HEMATOCRIT 42.7 % (42-52); IG% 0.5 %; LYMPH ABS # 0.94 K/uL (1.2-3.4); MEAN CELL VOLUME 89.1 fL (80-100); MEAN PLATELET VOLUME 9.1 fL (7.4-10.4); MONO % 7.5 %; NEUT % 86.9 %; PLATELET COUNT 157 K/uL (130-400); RED BLOOD COUNT 4.79 M/uL (4.7-6.1); WHITE BLOOD COUNT 18.95 K/uL (4.8-10.8)
--- NOTE | 2016-09-21 08:39 | Family Medicine Progress Note ---
"Progress Note Date of Service Sep 21, 2016. Subjective Pt evaluation today including: conversation w/ family, physical exam, chart review, lab review, review of studies, review of inpatient medication list Voiding: ahmadi catheter in place Discussed with partner and history consistent with previous notes. Patient did not feels anything coming on but suddenly looked holly and became stiff then collapsed suddenly. Additional Comments: unable to obtain Medications Current Inpatient Medications Medications (Trade) Dose Ordered Sig/Christina Route Start Time Stop Time Status Last Admin Dose Admin Artificial Tears 1 appln 1 appln Q2H PRN OPB 09/20/16 17:00 10/20/16 16:59 09/21/16 04:00 1 APPLN Pantoprazole Sodium 40 mg/ Syringe 10 ml @ 5 mls/min DAILY@11 IV 09/21/16 11:00 10/21/16 10:59 Midazolam HCl (Midazolam 125MG/ 250ML D5w) 250 ml @ 0 mls/hr Q0M PRN IV 09/20/16 16:57 10/20/16 16:56 Meperidine HCl 25 mg 25 mg Q2H PRN IV 09/20/16 17:00 10/04/16 16:59 Fentanyl Citrate 250 ml @ 0 mls/hr Q0M PRN IV 09/20/16 16:57 10/04/16 16:56 Amiodarone HCL/ Dextrose 200 ml @ 16.7 mls/hr [id number] IV 09/20/16 23:15 10/20/16 23:14 09/21/16 08:20 16.7 MLS/HR Norepinephrine Bitartrate/ Dextrose (Levophed Inj/ D5W 500ml) 508 ml @ 0 mls/hr Q0M PRN IV 09/20/16 17:30 10/20/16 17:29 Insulin Aspart SLIDING SCALE PCHS SC 09/20/16 21:00 10/20/16 20:59 Parenteral Electrolyte Solution 1,000 ml @ 125 mls/hr Q8H IV 09/20/16 17:30 10/20/16 17:29 09/21/16 04:09 125 MLS/HR Cisatracurium Besylate/Sodium Chloride (Nimbex INJ/Nss 100ml) 100 ml @ 0 mls/hr Q0M PRN IV 09/20/16 17:45 10/20/16 17:44 09/21/16 02:36 8 MLS/HR Miscellaneous Information 1 ea 1 ea per protocol PRN N/A 09/20/16 17:30 09/27/16 17:29 Insulin Human Regular/Sodium Chloride (novoLIN-R/Nss 250ml) 252.5 ml @ 0 mls/hr DAILY@1130 IV 09/20/16 18:00 10/20/16 17:59 09/20/16 18:32 2.6 MLS/HR Glucose (Glucose 40% Gel) 15-30 GRAMS 15 GRAMS... UD PRN PO 09/20/16 18:00 10/20/16 17:59 Glucose (Glucose Chew Tab) 4-8 Tablets 4 Tabl... UD PRN PO 09/20/16 18:00 10/20/16 17:59 Dextrose (Dextrose 50% 50ML Syringe) 25-50ML OF 50% DW IV FOR... UD PRN IV 09/20/16 18:00 10/20/16 17:59 Glucagon 1 mg 1 mg UD PRN SQ 09/20/16 18:00 10/20/16 17:59 Heparin Sodium/ Dextrose (Heparin 25,000 Unit/500ml D5W) 500 ml @ 27 mls/hr [id number] PRN IV 09/20/16 20:45 10/20/16 20:44 09/21/16 05:28 27 MLS/HR Enteral Nutritional Formula 1000 ml 1,000 ml UD OG 09/21/16 09:00 10/21/16 08:59 Potassium Chloride/Prmx (Kcl 20 Meq / Wtr/Premixed Water) 100 ml @ 50 mls/hr Q2H IV 09/21/16 03:30 09/21/16 13:29 09/21/16 07:45 50 MLS/HR Heparin Sodium (Porcine) (Heparin 10 Unit/ ml 5 ml Flush) 5 ml PRN PRN FLUSH 09/21/16 01:15 10/21/16 01:14 Objective Vital Signs Date Time Temp Pulse Resp B/P Pulse Ox O2 Delivery O2 Flow Rate FiO2 09/21/16 07:30 40 09/21/16 07:28 50 09/21/16 07:02 32.6 58 20 109/83 100 Mechanical Ventilator 09/21/16 06:01 32.5 45 20 102/72 100 Mechanical Ventilator 09/21/16 05:16 50 09/21/16 05:10 60 09/21/16 05:01 32.3 48 24 103/75 100 Mechanical Ventilator 09/21/16 04:00 60 09/21/16 04:00 32.2 62 24 118/86 94 Mechanical Ventilator 09/21/16 04:00 60 09/21/16 03:50 60 09/21/16 02:59 32.2 49 24 99/71 100 Mechanical Ventilator 09/21/16 02:00 32.3 44 24 96/67 100 Mechanical Ventilator 09/21/16 01:42 60 09/21/16 01:01 32.4 54 24 115/81 100 Mechanical Ventilator 09/21/16 00:00 60 09/21/16 00:00 60 09/21/16 00:00 32.8 59 24 133/85 97 Mechanical Ventilator 09/20/16 23:36 60 09/20/16 23:30 60 09/20/16 23:00 32.4 65 24 159/102 93 09/20/16 22:02 34.0 72 24 152/98 98 09/20/16 21:14 98 155/107 09/20/16 21:00 34.5 84 24 155/107 97 09/20/16 20:19 60 09/20/16 20:00 35.0 85 24 154/112 97 09/20/16 20:00 98 Mechanical Ventilator 60 09/20/16 20:00 60 09/20/16 19:45 83 24 136/97 09/20/16 19:30 81 24 145/109 09/20/16 19:15 91 24 137/100 09/20/16 19:00 35.4 99 24 105/60 97 Mechanical Ventilator 60 09/20/16 18:47 79 24 142/101 94 09/20/16 18:45 84 24 09/20/16 18:30 92 24 157/108 09/20/16 18:23 50 09/20/16 18:15 82 24 160/119 09/20/16 18:00 35.8 99 24 105/60 94 Mechanical Ventilator 60 09/20/16 17:45 83 24 142/100 09/20/16 17:36 35.9 99 24 105/60 94 Mechanical Ventilator 60 09/20/16 17:30 111 23 82 3/30/17 17:15 90 25 67 09/20/16 16:45 36.3 99 24 105/60 94 Mechanical Ventilator 50 09/20/16 16:45 36.3 99 24 105/60 94 Mechanical Ventilator 50 09/20/16 15:56 130 09/20/16 15:50 Mechanical Ventilator 09/20/16 15:48 109 93/64 97 09/20/16 15:47 118 64/61 95 Mechanical Ventilator 09/20/16 15:33 128 109/66 95 Ambu-Bag Physical Exam General Appearance: + pertinent finding (sedated and mechanically ventilated in ICU bed) Eyes: normal inspection (pupils equal) ENT: + pertinent finding (ET tube in place, OG tube draining brown liquid) Respiratory/Chest: + pertinent finding (mechanically ventilated, coarse breath sounds bilaterally with good air entry) Cardiovascular: regular rate, rhythm, no murmur (known AVR bioprosthetic but no murmur appreciated on exam) Abdomen: soft (no distension noted), + abnormal bowel sounds (absent) Extremities: no pedal edema, normal capillary refill (finger tips), + pertinent finding (no unilateral calf swelling, unable to palpate DP/PT bilaterally) Skin: + pertinent finding (cooled (arctic protocol)) Laboratory Results 09/21/16 08:15 Red Blood Count 4.79, Mean Corpuscular Volume 89.1, Mean Corpuscular Hemoglobin 33.0, Mean Corpuscular Hemoglobin Concent 37.0, Mean Platelet Volume 9.1, Neutrophils (%) (Auto) 86.9, Lymphocytes (%) (Auto) 5.0, Monocytes (%) (Auto) 7.5, Eosinophils (%) (Auto) 0.0, Basophils (%) (Auto) 0.1, Neutrophils # (Auto) 16.49, Lymphocytes # (Auto) 0.94, Monocytes # (Auto) 1.42, Eosinophils # (Auto) 0.00, Basophils # (Auto) 0.01 Test 09/20/16 15:37 09/20/16 15:42 09/20/16 17:24 09/20/16 18:15 Neutrophils % (Manual) 55.0 % Lymphocytes % (Manual) 36.0 % Monocytes % (Manual) 5.4 % Eosinophils % (Manual) 0.9 % Metamyelocytes % 1.8 % Myelocytes % 0.9 % Neutrophils # (Manual) 16.95 K/uL (1.4-6.5) Total Absolute Neutrophils 16.95 K/uL (1.4-6.5) Lymphocytes # (Manual) 11.10 K/uL (1.2-3.4) Total Absolute Lymphocytes 11.10 K/uL (1.2-3.4) Monocytes # (Manual) 1.66 K/uL (0.11-0.59) Eosinophils # (Manual) 0.28 K/uL (0-0.5) Metamyelocytes # 0.55 K/uL (0-0) Myelocytes # 0.28 K/uL (0-0) Total Bilirubin 0.5 mg/dl (0.2-1) Alanine Aminotransferase (ALT/SGPT) 59 U/L (12-78) Alkaline Phosphatase 99 U/L (45-117) Pro-B-Type Natriuretic Peptide 1744 pg/ml (0-900) Total Protein 6.9 gm/dl (6.4-8.2) Albumin 3.8 gm/dl (3.4-5.0) Lipase 296 U/L (73-393) Thyroid Stimulating Hormone (TSH) 12.400 uIu/ml (0.300-4.500) Free Thyroxine 0.83 ng/dl (0.80-1.60) Bedside Hemoglobin 16.3 g/dl (14.0-18.0) Bedside Hematocrit 48 % (42-52) Bedside Sodium 137 mEq/L (135-144) Bedside Potassium 3.9 mEq/L (3.3-5.0) Estimated Average Glucose 105 mg/dl Hemoglobin A1c 5.3 % (4.5-5.6) Direct Bilirubin 0.2 mg/dl (0-0.2) Aspartate Amino Transf (AST/SGOT) 76 U/L (15-37) Total Creatine Kinase 686 U/L (39-308) Random Cortisol 58.24 mcg/dl Test 09/20/16 23:48 09/21/16 00:57 09/21/16 03:45 09/21/16 05:10 Creatine Kinase MB 36.0 ng/ml (0.5-3.6) Creatine Kinase MB Ratio (0-3.0) Est Creatinine Clear Calc Drug Dose 152.1 ml/min Ionized Calcium 0.95 mmol/l (1.12-1.32) Blood Gas Sample Site Art Line Bedside Blood Gas pH (LAB) 7.47 (7.35-7.45) Bedside Blood Gas pCO2 (LAB) 33 mmHg (35-46) Bedside Blood Gas pO2 (LAB) 184 mmHg (80-95) Bedside Blood Gas HCO3 (LAB) 25 meq/L (19-24) Bedside Blood Gas Total CO2 26 mEq/l (24-31) Bedside Blood Gas Base Excess (LAB) 0.0 meq/L (-9-1.8) Bedside Blood Gas O2 Saturation 100.0 % (90-95) Augustine Test NA Oxygen Delivery Device Ventilator Bedside Oxygen Rate (breaths/min) 24 Blood Gas Minute Ventilation 12.4 Bedside FiO2 60 % Blood Gas Tidal Volume 550 Blood Gas PEEP 8 Test 09/21/16 06:35 09/21/16 08:15 Bedside Glucose (other) 152 mg/dl (70-99) White Blood Count 18.95 K/uL (4.8-10.8) Red Blood Count 4.79 M/uL (4.7-6.1) Hemoglobin 15.8 g/dL (14.0-18.0) Hematocrit 42.7 % (42-52) Mean Corpuscular Volume 89.1 fL (80-100) Mean Corpuscular Hemoglobin 33.0 pg (25-34) Mean Corpuscular Hemoglobin Concent 37.0 g/dl (32-36) Platelet Count 157 K/uL (130-400) Mean Platelet Volume 9.1 fL (7.4-10.4) Neutrophils (%) (Auto) 86.9 % Lymphocytes (%) (Auto) 5.0 % Monocytes (%) (Auto) 7.5 % Eosinophils (%) (Auto) 0.0 % Basophils (%) (Auto) 0.1 % Neutrophils # (Auto) 16.49 K/uL (1.4-6.5) Lymphocytes # (Auto) 0.94 K/uL (1.2-3.4) Monocytes # (Auto) 1.42 K/uL (0.11-0.59) Eosinophils # (Auto) 0.00 K/uL (0-0.5) Basophils # (Auto) 0.01 K/uL (0-0.2) RDW Standard Deviation 42.4 fL (36.4-46.3) RDW Coefficient of Variation 13.0 % (11.5-14.5) Immature Granulocyte % (Auto) 0.5 % Immature Granulocyte # (Auto) 0.09 K/uL (0.00-0.02) Assessment and Plan 66 year old male Hx bioprosthetic AVR, paroxysmal atrial fibrillation, chronic systolic CHF, ascending thoracic aortic aneurysm, admitted as a code arctic after brought in by EMS following V. fib (?torsades) cardiac arrest status post resuscitation. Stable overnight and off of vasopressors. V. fib arrest/chronic systolic CHF/ascending thoracic aortic aneurysm/s/p AVR - RILEY shows LVEF of 20-25%, no thrombus in the left atrium. DVT is ruled out, there is no dissection of this thoracic aortic aneurysm. History consistent with arrhythmia secondary to his severe cardiomyopathy. Cardiac cath essentially normal coronary arteries. Appreciate Professor Of Business Administration and Cardiology management. - mechanically ventilated as managed by ICU - Continue cooling protocol for 24 hours (9pm) with appropriate sedation and pain management - Continue heparin drip - Continue amiodarone IV drip - IVF 125 MLS/HR - BP management with metoprolol PRN - trickle NG feeds given - EEG - Serial electrolytes, renal and liver function - Eventual ICD and evaluation for repair of thoracic aortic aneurysm after initial stabilization Hyperglycemia - Insulin IV aim 140-180 - q4h BSG Hypokalemia / hypophosphatemia - replacements as per ICU protocol Lines - Ahmadi urine cath - left subclavian central venous catheter - left arterial line - PIV 2 - OG + ET tube VTE and GI Prophylaxis - heparin drip - Protonix IV Code - Full Disposition - Continued ICU stay due to intubated and mechanically ventilated History Resident Physician Supervision Note: I was present with Dr. Gilliland during the history and exam. I discussed the case with the resident and agree with the findings and plan as documented in the note. Any exceptions or clarifications are listed here. Pt seen and examined at bedside, currently sedated on ventilator. Family (S/O and daughter) present at bedside. Code arctic in progress (rewarm at 2100) Respiratory: decreased breath sounds, rhonchi (minor, bases) Cardiovascular: normal peripheral pulses, no murmur, other (distant heart sounds) Gastrointestinal: normal bowel sounds, non tender, soft, no organomegaly Assessment/Plan 66 y/o male h/o AV replacement, pAFib, chronic systolic CHF, ascending AA s/p out of hospital arrest (torsade?) post resuscitation Cardiac arrest w/ h/o Afib, AV replacement, ATAA | VDRF- RILEY w/ EF of 20-25%, cath essentially WNL - Therapeutic hypothermia protocol (rewarm at 2100), off pressors - Professor Of Business Administration and cardiology management appreciated - trend troponins - heparin drip - amiodarone drip - monitor BMP - fentanyl and demerol for pain control - EEG pending HTN - holding BARB and BB Atrial fibrillation - AC w/ heparin drip for now, none as outpatient. BB held Glucose management - insulin drip at present, monitor blood glucose level Electrolyte management - trend BMP and correct GI PPX - protonix IV GI prophylaxis-IV Protonix"
[2016-09-21 08:47] LABS: INR 1.2 (0.9-1.1); PARTIAL THROMBOPLASTIN RATIO 4.1; PROTHROMBIN TIME (PATIENT) 12.7 SECONDS (9.0-12.0)
[2016-09-21 08:51] LABS: BUN/CREATININE RATIO 21.9 (10-20); CALCIUM 7.1 mg/dl (8.5-10.1); CREATININE 0.54 mg/dl (0.60-1.40); MAGNESIUM 2.1 mg/dl (1.8-2.4); POTASSIUM 3.5 mmol/L (3.5-5.1)
[2016-09-21 08:57] LABS: PHOSPHORUS 2.2 mg/dl (2.5-4.9)
[2016-09-21 08:59] LABS: ISTAT ARTERIAL BLOOD GAS HCO3 21 meq/L (19-24); ISTAT ARTERIAL BLOOD GAS PCO2 38 mmHg (35-46); ISTAT ARTERIAL BLOOD GAS PO2 152 mmHg (80-95); ISTAT ARTERIAL BLOOD GAS pH 7.33 (7.35-7.45); ISTAT CARBON DIOXIDE 22 mEq/l (24-31); ISTAT DELIVERY SYSTEM Ventilator; ISTAT FIO2 50 %; ISTAT PEEP 8; ISTAT RATE 20; ISTAT SITE Art Line; VE 10.3; Vt 550
[2016-09-21] MEDS ORDERED: PEPTAMEN INTENSE VHP 1000ML BAG OG SCH (09:00)
--- NOTE | 2016-09-21 09:00 | EEG Procedure Note ---
EEG Procedure Note Date of Service Sep 21, 2016. Start / End Times Start Time: 7:10 AM End Time: 7:30 AM Referring Physician Danielito Rowe History This is a 66-year-old male who presents with cardiac arrest and cooling protocol. EEG to rule out nonconvulsive status Home Medication List Scheduled Aspirin (Aspirin Tab-Chewable *), 81 MG PO DAILY Inpatient Medication List Current Inpatient Medications Medications (Trade) Dose Ordered Sig/Christina Route Start Time Stop Time Status Last Admin Dose Admin Artificial Tears 1 appln 1 appln Q2H PRN OPB 09/20/16 17:00 10/20/16 16:59 09/21/16 04:00 1 APPLN Pantoprazole Sodium 40 mg/ Syringe 10 ml @ 5 mls/min DAILY@11 IV 09/21/16 11:00 10/21/16 10:59 Midazolam HCl (Midazolam 125MG/ 250ML D5w) 250 ml @ 0 mls/hr Q0M PRN IV 09/20/16 16:57 10/20/16 16:56 Meperidine HCl 25 mg 25 mg Q2H PRN IV 09/20/16 17:00 10/04/16 16:59 Fentanyl Citrate 250 ml @ 0 mls/hr Q0M PRN IV 09/20/16 16:57 10/04/16 16:56 Amiodarone HCL/ Dextrose 200 ml @ 16.7 mls/hr [id number] IV 09/20/16 23:15 10/20/16 23:14 09/21/16 08:20 16.7 MLS/HR Norepinephrine Bitartrate/ Dextrose (Levophed Inj/ D5W 500ml) 508 ml @ 0 mls/hr Q0M PRN IV 09/20/16 17:30 10/20/16 17:29 Insulin Aspart SLIDING SCALE PCHS SC 09/20/16 21:00 10/20/16 20:59 Parenteral Electrolyte Solution 1,000 ml @ 125 mls/hr Q8H IV 09/20/16 17:30 10/20/16 17:29 09/21/16 04:09 125 MLS/HR Cisatracurium Besylate/Sodium Chloride (Nimbex INJ/Nss 100ml) 100 ml @ 0 mls/hr Q0M PRN IV 09/20/16 17:45 10/20/16 17:44 09/21/16 02:36 8 MLS/HR Miscellaneous Information 1 ea 1 ea per protocol PRN N/A 09/20/16 17:30 09/27/16 17:29 Insulin Human Regular/Sodium Chloride (novoLIN-R/Nss 250ml) 252.5 ml @ 0 mls/hr DAILY@1130 IV 09/20/16 18:00 10/20/16 17:59 09/20/16 18:32 2.6 MLS/HR Glucose (Glucose 40% Gel) 15-30 GRAMS 15 GRAMS... UD PRN PO 09/20/16 18:00 10/20/16 17:59 Glucose (Glucose Chew Tab) 4-8 Tablets 4 Tabl... UD PRN PO 09/20/16 18:00 10/20/16 17:59 Dextrose (Dextrose 50% 50ML Syringe) 25-50ML OF 50% DW IV FOR... UD PRN IV 09/20/16 18:00 10/20/16 17:59 Glucagon 1 mg 1 mg UD PRN SQ 09/20/16 18:00 10/20/16 17:59 Heparin Sodium/ Dextrose (Heparin 25,000 Unit/500ml D5W) 500 ml @ 27 mls/hr [id number] PRN IV 09/20/16 20:45 10/20/16 20:44 09/21/16 05:28 27 MLS/HR Enteral Nutritional Formula 1000 ml 1,000 ml UD OG 09/21/16 09:00 10/21/16 08:59 Potassium Chloride/Prmx (Kcl 20 Meq / Wtr/Premixed Water) 100 ml @ 50 mls/hr Q2H IV 09/21/16 03:30 09/21/16 13:29 09/21/16 07:45 50 MLS/HR Heparin Sodium (Porcine) (Heparin 10 Unit/ ml 5 ml Flush) 5 ml PRN PRN FLUSH 09/21/16 01:15 10/21/16 01:14 Description This is a 21 electrode EEG with a single channel dedicated to limited EKG. The electrodes were placed in accordance with the International 10-20 system. Hyperventilation and photic stimulation were not done. At start of this recording the patient was unresponsive. Background was poorly organized with no anterior to posterior gradient. Background was composed of near continuous (<10% periods of background attenuation (<20uV)), symmetric, moderate amplitude, predominantly 6-7 Hz theta frequencies with intermixed delta and alpha frequencies. There was no state changes or sleep transients. Interpretation This is an abnormal EEG secondary to moderate diffuse background disorganization and slowing. There was no electrographic seizures or epileptiform discharges. Clinical Correlation This EEG indicates a moderate encephalopathy of nonspecific etiology. Sedating medication such as benzodiazepines or opioids could contribute to background encephalopathy.
--- NOTE | 2016-09-21 09:07 | Clinical Documentation Query ---
LAUREN Doe : CLINICAL DOCUMENTATION QUERIES QUERY 1 OF 3 Patient is a 66 year old male who presented in ventricular fibrillation cardiac arrest in the setting of a cardiomyopathy demonstrating an LVEF of 20-25% on cardiac catheterization. Serum troponin elevated to 3.83 ng/ml without confirmatory peak. Coronary system found to be essentially normal on catheterization. As appropriate, consider documentation as suggested below as this directly and significantly impacts DRG assignment. In your clinical opinion is this patient being managed for: (X) Type II NSTEMI ( ) Other explanation of clinical findings (Please Explain) ( ) Unable to determine (Please Define) ( ) Need to Discuss ( ) Not Agree The medical record reflects the following clinical findings, treatment, and risk factors. Clinical Indicators: As above Treatment: Cardiac catheterization, IV heparin, ICU admission, serial troponin, RILEY, cardiology consultation Risk Factors: Ventricular fibrillation arrest QUERY 2 OF 3 ED provider documentation includes "EMS noted that it was a wide complex rhythm and at times appeared to be in Torsade rhythm". He was treated with IV magnesium and amiodarone during his pulseless arrest. Critical insurance healthcare consultant noted "status post cardiac arrest from presumptive torsade depoints as reported by EMS". H&P notes the same. Assessment then includes V.fib arrest. As able, please clarify as to whether this was a v.tach arrest, v.fib arrest, or a v.tach and v.fib arrest in order to capture the etiology most accurately in the record. Thank you. In your clinical opinion is this patient being managed for: ( ) Polymorphic ventricular tachycardia/Torsade de Pointes ( ) Other explanation of clinical findings (Please Explain) (X) Unable to determine - no monitor strip available ( ) Need to Discuss ( ) Not Agree The medical record reflects the following clinical findings, treatment, and risk factors. Clinical Indicators: As above Treatment: Cardiac catheterization, defibrillation, IV magnesium, IV amiodarone Risk Factors: Age, gender, former smoker, EtOH use, cardiomyopathy QUERY 3 OF 3 Patient intubated in the field and maintained on invasive mechanical ventilation s/p arrest with subsequent cardiac catheterization and ongoing hypothermic protocol. As appropriate, consider documentation as suggested below in order to capture this importance clinical diagnosis. Thank you. In your clinical opinion is this patient being managed for: (X) Acute respiratory failure s/p cardiac arrest ( ) Other explanation of clinical findings (Please Explain) ( ) Unable to determine (Please Define) ( ) Need to Discuss ( ) Not Agree The medical record reflects the following clinical findings, treatment, and risk factors. Clinical Indicators: Mechanical ventilation s/p cardiac arrest Treatment: Mechanical ventilation, arterial line, ABG's Risk Factors: Cardiac arrest Please clarify and document your clinical opinion in the progress notes and discharge summary. Terms Please clarify and document your clinical opinion in the progress notes and discharge summary. Terms such as "probable", "suspected", "likely", "questionable", "possible", or "still to be ruled out" are acceptable. IF IN AGREEMENT, YOU MUST DOCUMENT ABOVE DIAGNOSTIC STATEMENT IN DAILY PROGRESS NOTES AND DISCHARGE SUMMARY. This document is not part of the patient's record. Thank You, Danielito Hall, SANTI [phone]
--- NOTE | 2016-09-21 09:10 | Clinical Documentation Query ---
PHI Medina : CLINICAL DOCUMENTATION QUERIES QUERY 1 OF 3 Patient is a 66 year old male who presented in ventricular fibrillation cardiac arrest in the setting of a cardiomyopathy demonstrating an LVEF of 20-25% on cardiac catheterization. Serum troponin elevated to 3.83 ng/ml without confirmatory peak. Coronary system found to be essentially normal on catheterization. As appropriate, consider documentation as suggested below as this directly and significantly impacts DRG assignment. In your clinical opinion is this patient being managed for: ( ) Type II NSTEMI ( ) Other explanation of clinical findings (Please Explain) ( ) Unable to determine (Please Define) ( ) Need to Discuss ( ) Not Agree The medical record reflects the following clinical findings, treatment, and risk factors. Clinical Indicators: As above Treatment: Cardiac catheterization, IV heparin, ICU admission, serial troponin, RILEY, cardiology consultation Risk Factors: Ventricular fibrillation arrest QUERY 2 OF 3 ED provider documentation includes "EMS noted that it was a wide complex rhythm and at times appeared to be in Torsade rhythm". He was treated with IV magnesium and amiodarone during his pulseless arrest. Critical career agent noted "status post cardiac arrest from presumptive torsade depoints as reported by EMS". H&P notes the same. Assessment then includes V.fib arrest. As able, please clarify as to whether this was a v.tach arrest, v.fib arrest, or a v.tach and v.fib arrest in order to capture the etiology most accurately in the record. Thank you. In your clinical opinion is this patient being managed for: ( ) Polymorphic ventricular tachycardia/Torsade de Pointes ( ) Other explanation of clinical findings (Please Explain) ( ) Unable to determine (Please Define) ( ) Need to Discuss ( ) Not Agree The medical record reflects the following clinical findings, treatment, and risk factors. Clinical Indicators: As above Treatment: Cardiac catheterization, defibrillation, IV magnesium, IV amiodarone Risk Factors: Age, gender, former smoker, EtOH use, cardiomyopathy QUERY 3 OF 3 Patient intubated in the field and maintained on invasive mechanical ventilation s/p arrest with subsequent cardiac catheterization and ongoing hypothermic protocol. As appropriate, consider documentation as suggested below in order to capture this importance clinical diagnosis. Thank you. In your clinical opinion is this patient being managed for: ( ) Acute respiratory failure s/p cardiac arrest ( ) Other explanation of clinical findings (Please Explain) ( ) Unable to determine (Please Define) ( ) Need to Discuss ( ) Not Agree The medical record reflects the following clinical findings, treatment, and risk factors. Clinical Indicators: Mechanical ventilation s/p cardiac arrest Treatment: Mechanical ventilation, arterial line, ABG's Risk Factors: Cardiac arrest Please clarify and document your clinical opinion in the progress notes and discharge summary. Terms such as "probable", "suspected", "likely", "questionable", "possible", or "still to be ruled out" are acceptable. IF IN AGREEMENT, YOU MUST DOCUMENT ABOVE DIAGNOSTIC STATEMENT IN DAILY PROGRESS NOTES AND DISCHARGE SUMMARY. This document is not part of the patient's record. Thank You, Danielito Hall, RN [phone]
[2016-09-21] MEDS ORDERED: CALCIUM GLUCONATE 10% 2,000 MG in SODIUM CHLORIDE 0.9% 50ML 50 ML IV ONE (09:30)
[2016-09-21 10:14] LABS: POINT OF CARE PRO-BNP 1495 pg/ml (0-900)
[2016-09-21] MEDS ORDERED: POTASSIUM PHOSPHATE INJ 15 MMOL in SODIUM CHLORIDE 0.9% 250ML 250 ML IV SCH (10:30)
[2016-09-21] MEDS: PANTOprazole INJ 40 MG in SYRINGE 0 ML IV SCH (10:48)
--- NOTE | 2016-09-21 11:17 | Cardiology Follow-Up ---
Subjective General Date of Service: Sep 21, 2016. Chief Complaint: follow up cardiac arrest, cardiomyopathy Pt evaluation today including: conversation w/ patient, physical exam, conversation w/ regulatory consultant History of Present Illness The patient is a 66 year old male seen in follow-up. Patient remains sedated on the ventilator with therapeutic hypothermia protocol underway. EKG this morning reveals atrial fibrillation with slow ventricular rate, the QRS and QT intervals are mildly prolonged compared to yesterday. Telemetry reveals stable atrial fibrillation with slow ventricular rate and occasional PVCs but no sustained ventricular arrhythmias. Allergies Coded Allergies: No Known Allergies (Unverified , NONE, 09/20/16) Social History Smoking Status: Former Smoker Physical Exam Vital Signs Last Vital Signs Documentation Date Time Temp Pulse Resp B/P Pulse Ox O2 Delivery O2 Flow Rate FiO2 09/21/16 09:00 32.8 63 20 107/81 100 Mechanical Ventilator 40 Physical Exam Constitutional: Level of Distress: NAD Head: normocephalic Neck: supple Lungs: Auscultation: no wheezing, no rales/crackles Cardiovascular: Heart Auscultation: no murmurs, irregular rate rhythm Extremities: no edema Neurologic: Gait & Station: pertinent finding (sedated, paralyzed) Assessment and Plan Assessment and Plan IMPRESSION: 66-year-old male. 1.s/p cardiac arrest, likely due to ventricular arrhythmia in the setting of nonischemic cardiomyopathy, obstructive CAD excluded on emergent cardiac catheterization 09/20/16, LVEF on echo 09/20 with LVEF 20-25%, normal bio AVR function 2. Chronic persistent atrial fibrillation, not on anticoagulation due to medical nonadherence. 3. H/o bio AVR, 2010 with surgery performed at that time due to bicuspid AV severe AR, cardiomyopathy 4. R/o anoxic brain injury RECOMMENDATIONS: Continue heparin for AF. Troponin elevation due to defibrillations, CPR, cardiac arrest, no coronary culprit. Continue amiodarone for now. Rewarming to be initiated of 09/21 at 9 pm[address] Monitor electrolytes[address] Michael assuming service of 09/22. Laboratory Results Last 24 Hours Test 09/20/16 15:37 09/20/16 15:39 09/20/16 15:42 09/20/16 15:49 White Blood Count 30.82 K/uL Red Blood Count 4.90 M/uL Hemoglobin 16.4 g/dL Hematocrit 46.0 % Mean Corpuscular Volume 93.9 fL Mean Corpuscular Hemoglobin 33.5 pg Mean Corpuscular Hemoglobin Concent 35.7 g/dl Platelet Count 213 K/uL Mean Platelet Volume 9.6 fL RDW Standard Deviation 45.0 fL RDW Coefficient of Variation 13.1 % Neutrophils % (Manual) 55.0 % Lymphocytes % (Manual) 36.0 % Monocytes % (Manual) 5.4 % Eosinophils % (Manual) 0.9 % Metamyelocytes % 1.8 % Myelocytes % 0.9 % Neutrophils # (Manual) 16.95 K/uL Total Absolute Neutrophils 16.95 K/uL Lymphocytes # (Manual) 11.10 K/uL Total Absolute Lymphocytes 11.10 K/uL Monocytes # (Manual) 1.66 K/uL Eosinophils # (Manual) 0.28 K/uL Metamyelocytes # 0.55 K/uL Myelocytes # 0.28 K/uL Prothrombin Time 11.4 SECONDS Prothromb Time International Ratio 1.1 Activated Partial Thromboplast Time 26.4 SECONDS Partial Thromboplastin Ratio 1.0 Sodium Level 139 mmol/L Potassium Level mmol/L Chloride Level 104 mmol/L Carbon Dioxide Level 18 mmol/L Anion Gap 17.0 mmol/L Blood Urea Nitrogen 14 mg/dl Creatinine 1.30 mg/dl Estimated GFR () 66.4 Estimated GFR (Non- 57.3 BUN/Creatinine Ratio 11.1 Random Glucose 268 mg/dl Calcium Level 8.3 mg/dl Magnesium Level mg/dl Total Bilirubin 0.5 mg/dl Direct Bilirubin mg/dl Aspartate Amino Transf (AST/SGOT) U/L Alanine Aminotransferase (ALT/SGPT) 59 U/L Alkaline Phosphatase 99 U/L Total Creatine Kinase U/L Creatine Kinase MB 5.5 ng/ml Creatine Kinase MB Ratio Troponin I 0.280 ng/ml Pro-B-Type Natriuretic Peptide 1744 pg/ml Total Protein 6.9 gm/dl Albumin 3.8 gm/dl Lipase 296 U/L Thyroid Stimulating Hormone (TSH) 12.400 uIu/ml Free Thyroxine 0.83 ng/dl Bedside D-Dimer > 450 ng/mlFEU Bedside Troponin I 0.170 ng/ml XJ-Niu-R-Type Natriuretic Peptide 1495 pg/ml Bedside Hemoglobin 16.3 g/dl Bedside Hematocrit 48 % Bedside Blood Gas pH (LAB) 7.03 7.13 Bedside Blood Gas pCO2 (LAB) 60 mmHg 43 mmHg Bedside Blood Gas pO2 (LAB) 78 mmHg 305 mmHg Bedside Blood Gas HCO3 (LAB) 16 meq/L 14 meq/L Bedside Blood Gas Total CO2 18 mEq/l 15 mEq/l Bedside Blood Gas Base Excess (LAB) -15.0 meq/L -15.0 meq/L Bedside Blood Gas O2 Saturation 87.0 % 100.0 % Bedside Sodium 137 mEq/L Bedside Potassium 3.9 mEq/L Test 09/20/16 16:57 09/20/16 17:24 09/20/16 18:15 09/20/16 18:21 Creatine Kinase MB Ratio 1.9 Potassium Level 3.7 mmol/L Bedside Glucose (other) 209 mg/dl 237 mg/dl Estimated Average Glucose 105 mg/dl Hemoglobin A1c 5.3 % Magnesium Level 2.3 mg/dl Direct Bilirubin 0.2 mg/dl Aspartate Amino Transf (AST/SGOT) 76 U/L Total Creatine Kinase 686 U/L Creatine Kinase MB 13.0 ng/ml Troponin I 1.700 ng/ml Random Cortisol 58.24 mcg/dl Test 09/20/16 18:44 09/20/16 19:35 09/20/16 20:38 09/20/16 21:42 Blood Gas Sample Site L Radial Bedside Blood Gas pH (LAB) 7.28 Bedside Blood Gas pCO2 (LAB) 45 mmHg Bedside Blood Gas pO2 (LAB) 58 mmHg Bedside Blood Gas HCO3 (LAB) 21 meq/L Bedside Blood Gas Total CO2 23 mEq/l Bedside Blood Gas Base Excess (LAB) -6.0 meq/L Bedside Blood Gas O2 Saturation 88.0 % Augustine Test Pass Oxygen Delivery Device Ventilator Bedside Oxygen Rate (breaths/min) 24 Blood Gas Minute Ventilation 12.4 Bedside FiO2 50 % Blood Gas Tidal Volume 550 Blood Gas PEEP 5 Bedside Glucose (other) 223 mg/dl 215 mg/dl 219 mg/dl Test 09/20/16 22:40 09/20/16 23:31 09/20/16 23:37 09/20/16 23:48 Bedside Glucose (other) 212 mg/dl 208 mg/dl Blood Gas Sample Site Art Line Bedside Blood Gas pH (LAB) 7.28 Bedside Blood Gas pCO2 (LAB) 38 mmHg Bedside Blood Gas pO2 (LAB) 68 mmHg Bedside Blood Gas HCO3 (LAB) 19 meq/L Bedside Blood Gas Total CO2 20 mEq/l Bedside Blood Gas Base Excess (LAB) -9.0 meq/L Bedside Blood Gas O2 Saturation 94.0 % Augustine Test NA Oxygen Delivery Device Ventilator Bedside Oxygen Rate (breaths/min) 24 Blood Gas Minute Ventilation 16.5 Bedside FiO2 60 % Blood Gas Tidal Volume 550 Blood Gas PEEP 5 White Blood Count 21.08 K/uL Red Blood Count 4.92 M/uL Hemoglobin 16.3 g/dL Hematocrit 44.7 % Mean Corpuscular Volume 90.9 fL Mean Corpuscular Hemoglobin 33.1 pg Mean Corpuscular Hemoglobin Concent 36.5 g/dl Platelet Count 184 K/uL Mean Platelet Volume 9.2 fL Neutrophils (%) (Auto) 88.3 % Lymphocytes (%) (Auto) 4.4 % Monocytes (%) (Auto) 6.3 % Eosinophils (%) (Auto) 0.0 % Basophils (%) (Auto) 0.0 % Neutrophils # (Auto) 18.60 K/uL Lymphocytes # (Auto) 0.92 K/uL Monocytes # (Auto) 1.32 K/uL Eosinophils # (Auto) 0.01 K/uL Basophils # (Auto) 0.01 K/uL RDW Standard Deviation 43.0 fL RDW Coefficient of Variation 12.9 % Immature Granulocyte % (Auto) 1.0 % Immature Granulocyte # (Auto) 0.22 K/uL Prothrombin Time 12.3 SECONDS Prothromb Time International Ratio 1.1 Activated Partial Thromboplast Time 52.1 SECONDS Partial Thromboplastin Ratio 2.0 Sodium Level 141 mmol/L Potassium Level 2.6 mmol/L Chloride Level 106 mmol/L Carbon Dioxide Level 22 mmol/L Anion Gap 13.0 mmol/L Blood Urea Nitrogen 15 mg/dl Creatinine 0.86 mg/dl Est Creatinine Clear Calc Drug Dose 106.1 ml/min Estimated GFR () 105.5 Estimated GFR (Non- 91.0 BUN/Creatinine Ratio 17.7 Random Glucose 198 mg/dl Calcium Level 7.2 mg/dl Phosphorus Level 2.2 mg/dl Magnesium Level 2.1 mg/dl Creatine Kinase MB 36.0 ng/ml Creatine Kinase MB Ratio Troponin I 3.830 ng/ml Test 09/21/16 00:43 09/21/16 00:57 09/21/16 01:40 09/21/16 02:43 Bedside Glucose (other) 198 mg/dl 199 mg/dl 190 mg/dl Creatine Kinase MB Ratio Test 09/21/16 03:45 09/21/16 03:46 09/21/16 03:53 09/21/16 04:50 White Blood Count 17.74 K/uL Red Blood Count 4.71 M/uL Hemoglobin 15.4 g/dL Hematocrit 41.2 % Mean Corpuscular Volume 87.5 fL Mean Corpuscular Hemoglobin 32.7 pg Mean Corpuscular Hemoglobin Concent 37.4 g/dl Platelet Count 161 K/uL Mean Platelet Volume 8.9 fL Neutrophils (%) (Auto) 89.4 % Lymphocytes (%) (Auto) 4.6 % Monocytes (%) (Auto) 5.3 % Eosinophils (%) (Auto) 0.0 % Basophils (%) (Auto) 0.1 % Neutrophils # (Auto) 15.88 K/uL Lymphocytes # (Auto) 0.81 K/uL Monocytes # (Auto) 0.94 K/uL Eosinophils # (Auto) 0.00 K/uL Basophils # (Auto) 0.01 K/uL RDW Standard Deviation 41.0 fL RDW Coefficient of Variation 12.8 % Immature Granulocyte % (Auto) 0.6 % Immature Granulocyte # (Auto) 0.10 K/uL Prothrombin Time 12.6 SECONDS Prothromb Time International Ratio 1.2 Activated Partial Thromboplast Time 115.0 SECONDS Partial Thromboplastin Ratio 4.4 Sodium Level 142 mmol/L Potassium Level 3.2 mmol/L Chloride Level 108 mmol/L Carbon Dioxide Level 23 mmol/L Anion Gap 11.0 mmol/L Blood Urea Nitrogen 13 mg/dl Creatinine 0.60 mg/dl Est Creatinine Clear Calc Drug Dose 152.1 ml/min Estimated GFR () 122.3 Estimated GFR (Non- 105.5 BUN/Creatinine Ratio 22.2 Random Glucose 177 mg/dl Calcium Level 6.8 mg/dl Ionized Calcium 0.95 mmol/l Phosphorus Level 3.2 mg/dl Magnesium Level 2.0 mg/dl Troponin I 3.420 ng/ml Blood Gas Sample Site Art Line Bedside Blood Gas pH (LAB) 7.36 Bedside Blood Gas pCO2 (LAB) 35 mmHg Bedside Blood Gas pO2 (LAB) 176 mmHg Bedside Blood Gas HCO3 (LAB) 21 meq/L Bedside Blood Gas Total CO2 22 mEq/l Bedside Blood Gas Base Excess (LAB) -6.0 meq/L Bedside Blood Gas O2 Saturation 100.0 % Augustine Test NA Oxygen Delivery Device Ventilator Bedside Oxygen Rate (breaths/min) 24 Blood Gas Minute Ventilation 12.3 Bedside FiO2 60 % Blood Gas Tidal Volume 550 Blood Gas PEEP 12 Bedside Glucose (other) 178 mg/dl 167 mg/dl Test 09/21/16 05:10 09/21/16 06:35 09/21/16 07:26 09/21/16 08:11 Blood Gas Sample Site Art Line Art Line Bedside Blood Gas pH (LAB) 7.47 7.33 Bedside Blood Gas pCO2 (LAB) 33 mmHg 38 mmHg Bedside Blood Gas pO2 (LAB) 184 mmHg 152 mmHg Bedside Blood Gas HCO3 (LAB) 25 meq/L 21 meq/L Bedside Blood Gas Total CO2 26 mEq/l 22 mEq/l Bedside Blood Gas Base Excess (LAB) 0.0 meq/L -6.0 meq/L Bedside Blood Gas O2 Saturation 100.0 % 99.0 % Augustine Test NA NA Oxygen Delivery Device Ventilator Ventilator Bedside Oxygen Rate (breaths/min) 24 20 Blood Gas Minute Ventilation 12.4 10.3 Bedside FiO2 60 % 50 % Blood Gas Tidal Volume 550 550 Blood Gas PEEP 8 8 Bedside Glucose (other) 152 mg/dl 146 mg/dl Test 09/21/16 08:15 09/21/16 09:17 White Blood Count 18.95 K/uL Red Blood Count 4.79 M/uL Hemoglobin 15.8 g/dL Hematocrit 42.7 % Mean Corpuscular Volume 89.1 fL Mean Corpuscular Hemoglobin 33.0 pg Mean Corpuscular Hemoglobin Concent 37.0 g/dl Platelet Count 157 K/uL Mean Platelet Volume 9.1 fL Neutrophils (%) (Auto) 86.9 % Lymphocytes (%) (Auto) 5.0 % Monocytes (%) (Auto) 7.5 % Eosinophils (%) (Auto) 0.0 % Basophils (%) (Auto) 0.1 % Neutrophils # (Auto) 16.49 K/uL Lymphocytes # (Auto) 0.94 K/uL Monocytes # (Auto) 1.42 K/uL Eosinophils # (Auto) 0.00 K/uL Basophils # (Auto) 0.01 K/uL RDW Standard Deviation 42.4 fL RDW Coefficient of Variation 13.0 % Immature Granulocyte % (Auto) 0.5 % Immature Granulocyte # (Auto) 0.09 K/uL Prothrombin Time 12.7 SECONDS Prothromb Time International Ratio 1.2 Activated Partial Thromboplast Time 106.7 SECONDS Partial Thromboplastin Ratio 4.1 Sodium Level 142 mmol/L Potassium Level 3.5 mmol/L Chloride Level 109 mmol/L Carbon Dioxide Level 23 mmol/L Anion Gap 10.0 mmol/L Blood Urea Nitrogen 12 mg/dl Creatinine 0.54 mg/dl Est Creatinine Clear Calc Drug Dose 169.0 ml/min Estimated GFR () 127.7 Estimated GFR (Non- 110.2 BUN/Creatinine Ratio 21.9 Random Glucose 137 mg/dl Calcium Level 7.1 mg/dl Phosphorus Level 2.2 mg/dl Magnesium Level 2.1 mg/dl Troponin I 2.810 ng/ml Bedside Glucose (other) 144 mg/dl
[2016-09-21 11:49] LABS: ISTAT ARTERIAL BLOOD GAS HCO3 22 meq/L (19-24); ISTAT ARTERIAL BLOOD GAS PCO2 41 mmHg (35-46); ISTAT ARTERIAL BLOOD GAS PO2 85 mmHg (80-95); ISTAT CARBON DIOXIDE 23 mEq/l (24-31); ISTAT DELIVERY SYSTEM Ventilator; ISTAT FIO2 40 %; ISTAT PEEP 8; ISTAT RATE 20; ISTAT SITE Art Line; VE 10.3; Vt 550
[2016-09-21 12:13] LABS: BASO % 0.1 %; BASO ABS # 0.01 K/uL (0-0.2); COMPLETE YES; HEMATOCRIT 41.9 % (42-52); IG% 0.4 %; LYMPH ABS # 0.92 K/uL (1.2-3.4); MEAN CELL VOLUME 88.4 fL (80-100); MEAN CORPUSCULAR HEMOGLOBIN 32.7 pg (25-34); MEAN PLATELET VOLUME 9.1 fL (7.4-10.4); MONO % 7.8 %; NEUT % 86.7 %; PLATELET COUNT 168 K/uL (130-400); RED BLOOD COUNT 4.74 M/uL (4.7-6.1); WHITE BLOOD COUNT 18.54 K/uL (4.8-10.8)
[2016-09-21] MEDS: INSULIN REGULAR 250 UNITS in SODIUM CHLORIDE 0.9% 250ML 250 ML IV SCH (12:22)
[2016-09-21 12:52] LABS: BUN/CREATININE RATIO 20.9 (10-20); CALCIUM 7.6 mg/dl (8.5-10.1); CREATININE 0.54 mg/dl (0.60-1.40); PHOSPHORUS 3.4 mg/dl (2.5-4.9); POTASSIUM 4.1 mmol/L (3.5-5.1)
[2016-09-21 13:27] LABS: INR 1.2 (0.9-1.1); PARTIAL THROMBOPLASTIN RATIO 4.5; PROTHROMBIN TIME (PATIENT) 12.8 SECONDS (9.0-12.0)
[2016-09-21 16:08] LABS: ISTAT ARTERIAL BLOOD GAS HCO3 23 meq/L (19-24); ISTAT ARTERIAL BLOOD GAS PCO2 46 mmHg (35-46); ISTAT ARTERIAL BLOOD GAS PO2 91 mmHg (80-95); ISTAT ARTERIAL BLOOD GAS pH 7.29 (7.35-7.45); ISTAT CARBON DIOXIDE 25 mEq/l (24-31); ISTAT DELIVERY SYSTEM Ventilator; ISTAT FIO2 40 %; ISTAT PEEP 10; ISTAT RATE 20; ISTAT SITE Art Line; VE 10.3; Vt 550
[2016-09-21 16:09] LABS: BASO % 0.1 %; BASO ABS # 0.01 K/uL (0-0.2); COMPLETE YES; EOS % 0.1 %; HEMATOCRIT 42.3 % (42-52); IG% 0.3 %; LYMPH % 7.4 %; LYMPH ABS # 1.36 K/uL (1.2-3.4); MEAN CELL VOLUME 88.3 fL (80-100); MEAN CORPUSCULAR HEMOGLOBIN 32.2 pg (25-34); MEAN CORPUSCULAR HGB CONC 36.4 g/dl (32-36); MEAN PLATELET VOLUME 9.2 fL (7.4-10.4); MONO % 7.5 %; NEUT % 84.6 %; PLATELET COUNT 179 K/uL (130-400); RED BLOOD COUNT 4.79 M/uL (4.7-6.1)
[2016-09-21 16:30] LABS: BUN/CREATININE RATIO 19.3 (10-20); CALCIUM 7.4 mg/dl (8.5-10.1); CREATININE 0.56 mg/dl (0.60-1.40); MAGNESIUM 1.9 mg/dl (1.8-2.4); POTASSIUM 4.5 mmol/L (3.5-5.1)
[2016-09-21 20:14] LABS: BASO % 0.1 %; BASO ABS # 0.01 K/uL (0-0.2); COMPLETE YES; EOS % 0.2 %; HEMATOCRIT 42.4 % (42-52); IG% 0.4 %; LYMPH % 7.1 %; MEAN CORPUSCULAR HEMOGLOBIN 32.9 pg (25-34); MEAN CORPUSCULAR HGB CONC 36.6 g/dl (32-36); MEAN PLATELET VOLUME 9.1 fL (7.4-10.4); MONO % 6.9 %; NEUT % 85.3 %; PLATELET COUNT 156 K/uL (130-400); RED BLOOD COUNT 4.71 M/uL (4.7-6.1)
[2016-09-21 20:21] LABS: ISTAT ARTERIAL BLOOD GAS HCO3 22 meq/L (19-24); ISTAT ARTERIAL BLOOD GAS PCO2 36 mmHg (35-46); ISTAT ARTERIAL BLOOD GAS PO2 97 mmHg (80-95); ISTAT ARTERIAL BLOOD GAS pH 7.37 (7.35-7.45); ISTAT CARBON DIOXIDE 23 mEq/l (24-31); ISTAT DELIVERY SYSTEM Ventilator; ISTAT FIO2 40 %; ISTAT PEEP 10; ISTAT RATE 24; ISTAT SITE Art Line; VE 12.5; Vt 550
[2016-09-21 20:34] LABS: INR 1.1 (0.9-1.1); PARTIAL THROMBOPLASTIN RATIO 3.6; PROTHROMBIN TIME (PATIENT) 12.3 SECONDS (9.0-12.0)
[2016-09-21 20:37] LABS: BUN/CREATININE RATIO 24.9 (10-20); CALCIUM 7.3 mg/dl (8.5-10.1); CREATININE 0.45 mg/dl (0.60-1.40); POTASSIUM 4.2 mmol/L (3.5-5.1)
[2016-09-21] MEDS ORDERED: NURSING VERBAL MED ORDER STA ×2 (21:44→22:17)
[2016-09-21] MEDS ORDERED: ALBUMIN HUMAN 25% 12.5 GM/50 ML VIAL IV STA (22:03)
[2016-09-21] MEDS ORDERED: SODIUM PHOSPHATE 3 MMOL/1 ML INFUSION IV STA (22:08)
[2016-09-21] MEDS ORDERED: SODIUM PHOSPHATE INJ 15 MMOL in SODIUM CHLORIDE 0.9% 250ML 250 ML IV ONE (23:00)
[2016-09-22] VITALS (20 sets, daily range): BP systolic 87–147; BP diastolic 49–93; PULSE 65–84; TEMP 33.8–36.3; O2SAT 97–100
[2016-09-22 00:09] LABS: BASO % 0.1 %; BASO ABS # 0.01 K/uL (0-0.2); COMPLETE YES; EOS % 0.1 %; HEMATOCRIT 39.3 % (42-52); IG% 0.2 %; LYMPH % 8.6 %; LYMPH ABS # 1.16 K/uL (1.2-3.4); MEAN CELL VOLUME 90.3 fL (80-100); MEAN CORPUSCULAR HEMOGLOBIN 32.6 pg (25-34); MEAN CORPUSCULAR HGB CONC 36.1 g/dl (32-36); MEAN PLATELET VOLUME 9.6 fL (7.4-10.4); PLATELET COUNT 142 K/uL (130-400); RED BLOOD COUNT 4.35 M/uL (4.7-6.1); WHITE BLOOD COUNT 13.55 K/uL (4.8-10.8)
[2016-09-22 00:37] LABS: BUN/CREATININE RATIO 24.9 (10-20); CALCIUM 7.4 mg/dl (8.5-10.1); CREATININE 0.45 mg/dl (0.60-1.40); MAGNESIUM 1.9 mg/dl (1.8-2.4); POTASSIUM 4.5 mmol/L (3.5-5.1)
[2016-09-22] MEDS: NORMOSOL R 1,000 ML IV SCH ×2 (00:42→07:53)
[2016-09-22 00:45] LABS: PHOSPHORUS 3.4 mg/dl (2.5-4.9)
[2016-09-22] MEDS: CISATRACURIUM BESYLATE INJ 40 MG in SODIUM CHLORIDE 0.9% 100ML 80 ML IV PRN (02:15)
[2016-09-22 04:15] LABS: ISTAT ARTERIAL BLOOD GAS HCO3 22 meq/L (19-24); ISTAT ARTERIAL BLOOD GAS PCO2 37 mmHg (35-46); ISTAT ARTERIAL BLOOD GAS PO2 119 mmHg (80-95); ISTAT ARTERIAL BLOOD GAS pH 7.36 (7.35-7.45); ISTAT CARBON DIOXIDE 23 mEq/l (24-31); ISTAT DELIVERY SYSTEM Ventilator; ISTAT FIO2 40 %; ISTAT PEEP 10; ISTAT RATE 24; ISTAT SITE Art Line; VE 12.5; Vt 550
[2016-09-22 04:18] LABS: MEAN CELL VOLUME 90.7 fL (80-100); MEAN CORPUSCULAR HEMOGLOBIN 32.8 pg (25-34); MEAN CORPUSCULAR HGB CONC 36.2 g/dl (32-36); MEAN PLATELET VOLUME 9.5 fL (7.4-10.4); PLATELET COUNT 137 K/uL (130-400); WHITE BLOOD COUNT 11.65 K/uL (4.8-10.8)
[2016-09-22 04:38] LABS: BUN/CREATININE RATIO 25.7 (10-20); CALCIUM 7.3 mg/dl (8.5-10.1); CREATININE 0.43 mg/dl (0.60-1.40); POTASSIUM 4.6 mmol/L (3.5-5.1)
[2016-09-22 04:41] LABS: BASO % 0.1 %; BASO ABS # 0.01 K/uL (0-0.2); COMPLETE YES; EOS % 0.3 %; IG% 0.3 %; LYMPH % 9.3 %; LYMPH ABS # 1.08 K/uL (1.2-3.4); MONO % 7.8 %; NEUT % 82.2 %
[2016-09-22 04:46] LABS: INR 1.1 (0.9-1.1); PARTIAL THROMBOPLASTIN RATIO 2.4; PHOSPHORUS 2.3 mg/dl (2.5-4.9); PROTHROMBIN TIME (PATIENT) 12.1 SECONDS (9.0-12.0)
[2016-09-22] MEDS ORDERED: NURSING VERBAL MED ORDER STA (04:56)
[2016-09-22] MEDS ORDERED: MIDAZOLAM HCL 5 MG/ML 1 ML VIAL ONE (05:05)
[2016-09-22] MEDS: AMIODARONE / D5W 200 ML IV SCH ×2 (06:13→16:48)
[2016-09-22] MEDS ORDERED: LORAZEPAM 2 MG/ML 1 ML VIAL IV STA ×2 (07:05→07:23)
[2016-09-22] MEDS ORDERED: LORAZEPAM 2 MG/ML 1 ML VIAL ONE ×4 (07:07→15:14)
--- NOTE | 2016-09-22 07:46 | DIAGNOSTIC IMAGING REPORT ---
CHEST ONE VIEW PORTABLE CLINICAL HISTORY: Intubation. COMPARISON STUDY: Chest radiograph September 21, 2016. FINDINGS: Tip of the endotracheal tube is 5.5 cm above the ethan. The tip of the nasogastric tube is below the lower aspect of this image but at least within the proximal stomach. There is no pneumothorax. A left subclavian central line is in place. The patient is rotated. Cardiomegaly is noted. There is a prosthetic cardiac valve and median sternotomy wires. There is pulmonary vascular congestion. Mild left basilar opacity persists. IMPRESSION: 1. Satisfactory positioning of lines and tubes. 2. Pulmonary vascular congestion. 3. Left basilar opacity which could reflect atelectasis or consolidation. Electronically signed by: Sarthak William M.D. 09/22/2016 7:44 AM Dictated Date/Time: 09/22/2016 7:42 AM
[2016-09-22] MEDS: INSULIN ASPART 100 UNITS/ML 3 ML PEN SC SCH (07:54)
[2016-09-22] MEDS ORDERED: LACTATED RINGER'S 1000ML 1,000 ML IV SCH (08:00)
[2016-09-22] MEDS ORDERED: NURSING VERBAL MED ORDER ONE ×6 (08:00→19:15)
[2016-09-22] MEDS ORDERED: LEVETIRACETAM IV 1,000 MG in DEXTROSE 5% 100ML 100 ML IV ONE (08:00)
[2016-09-22] MEDS ORDERED: VALPROATE SOD IV ONE (09:00)
[2016-09-22] MEDS ORDERED: DEXTROSE 5% IV ONE (09:00)
--- NOTE | 2016-09-22 09:02 | Neurology Consultation ---
Neurology Consultation Date of Consultation: Sep 22, 2016. Attending Physician: Marc Chapman MD Primary Care Physician: Domenico Vines D.O. Pulmonary Reason for Consultation: Patient is a 66-year-old, who was asked to see the request of Dr. Rowe, for neurologic consultation regarding seizure activity. History of Present Illness Source: caregiver, hospital records The patient is known to have cardiomyopathy with cardiomegaly and ventricular arrhythmias. He had an aortic valve replacement in 2010 at [facility] for bicuspid aortic valve plus severe aortic regurgitation. He is known to have paroxysmal atrial fibrillation, and ascending aortic aneurysm, and chronic systolic congestive heart failure. 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 Police, who actually were next door at the time, responded first and then the EMS arrived. It is estimated that he was without a pulse for probably mow more than 5 minutes although I cannot ascertain this specifically. He was given amiodarone, magnesium, and epinephrine and defibrillated approximately 6 times. It was presumed that he had a ventricular arrhythmia leading to the arrest. He arrived in emergency room at 1533 hours on September 20, with a pulse of 128, blood pressure 109/66, and O2 saturation of 95% on oxygen. He was unresponsive clinically and a CT scan of the head was unremarkable. He went to the cardiac catheterization lab and had no significant coronary artery disease. He was placed on a cooling protocol. He was cooled down to a maximum of 32-33C and placed on neuromuscular blockers. Warming protocol was initiated. 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 This would be bilateral facial twitching and eye movements. This was recorded by the physician and I've reviewed these bilateral rhythmic facial jerking and eye twitching lasting 20-30 seconds. The patient was given 1 g of IV Keppra as a loading dose finishing at 0800 hours. I came into the room at 0805 hrs. and I noted 5 separate episodes over 25-30 minutes of bifacial rhythmic twitching/jerking accompanied by eye movement to the right at times. Other times his eyes are front. There would be rhythmic jerking of the neck musculature bilaterally into the shoulders. The entire event would last 20 to 30 seconds, and then it would stop and he would have no abnormal involuntary movements. Past Medical/Surgical History Cardiomegaly Chronic systolic congestive heart failure Paroxysmal atrial fibrillation Post aortic valve replacement in 2011 to [facility] for bicuspid aortic valve with severe aortic regurgitation. 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 Family History Mother with history of ovarian cancer. Social History Patient quit cigarette smoking in the past. He has a history of alcohol use in the past but I am uncertain as to how heavy his usage is Smoking Status: Former smoker Smokeless Tobacco Use: No Alcohol Use: occasionally Drug Use: none Marital Status: Housing Status: lives with family Allergies Coded Allergies: No Known Allergies (Unverified , NONE, 09/20/16) Current Inpatient Medications Current Inpatient Medications Medications (Trade) Dose Ordered Sig/Christina Route Start Time Stop Time Status Last Admin Dose Admin Artificial Tears 1 appln 1 appln Q2H PRN OPB 09/20/16 17:00 10/20/16 16:59 09/21/16 11:26 1 APPLN Pantoprazole Sodium 40 mg/ Syringe 10 ml @ 5 mls/min DAILY@11 IV 09/21/16 11:00 10/21/16 10:59 09/21/16 10:48 5 MLS/MIN Midazolam HCl (Midazolam 125MG/ 250ML D5w) 250 ml @ 0 mls/hr Q0M PRN IV 09/20/16 16:57 10/20/16 16:56 Meperidine HCl 25 mg 25 mg Q2H PRN IV 09/20/16 17:00 10/04/16 16:59 Fentanyl Citrate 250 ml @ 0 mls/hr Q0M PRN IV 09/20/16 16:57 10/04/16 16:56 Amiodarone HCL/ Dextrose 200 ml @ 16.7 mls/hr [id number] IV 09/20/16 23:15 10/20/16 23:14 09/22/16 06:13 16.7 MLS/HR Norepinephrine Bitartrate/ Dextrose (Levophed Inj/ D5W 500ml) 508 ml @ 0 mls/hr Q0M PRN IV 09/20/16 17:30 10/20/16 17:29 Insulin Aspart SLIDING SCALE PCHS SC 09/20/16 21:00 10/20/16 20:59 Parenteral Electrolyte Solution 1,000 ml @ 125 mls/hr Q8H IV 09/20/16 17:30 10/20/16 17:29 09/22/16 07:53 125 MLS/HR Cisatracurium Besylate/Sodium Chloride (Nimbex INJ/Nss 100ml) 100 ml @ 0 mls/hr Q0M PRN IV 09/20/16 17:45 10/20/16 17:44 09/22/16 02:15 11.9 MLS/HR Miscellaneous Information ( Icu Electrolyte Replacement Protocol) 1 ea per protocol PRN N/A 09/20/16 17:30 09/27/16 17:29 Glucose (Glucose 40% Gel) 15-30 GRAMS 15 GRAMS... UD PRN PO 09/20/16 18:00 10/20/16 17:59 Glucose (Glucose Chew Tab) 4-8 Tablets 4 Tabl... UD PRN PO 09/20/16 18:00 10/20/16 17:59 Dextrose (Dextrose 50% 50ML Syringe) 25-50ML OF 50% DW IV FOR... UD PRN IV 09/20/16 18:00 10/20/16 17:59 Glucagon 1 mg 1 mg UD PRN SQ 09/20/16 18:00 10/20/16 17:59 Heparin Sodium/ Dextrose (Heparin 25,000 Unit/500ml D5W) 500 ml @ 18 mls/hr Q24H PRN IV 09/20/16 20:45 10/20/16 20:44 09/21/16 21:20 18 MLS/HR Enteral Nutritional Formula (Peptamen Intense VHP) 1,000 ml UD OG 09/21/16 09:00 10/21/16 08:59 09/21/16 11:07 1,000 ML Heparin Sodium (Porcine) 5 ml 5 ml PRN PRN FLUSH 09/21/16 01:15 10/21/16 01:14 Levetiracetam 500 mg/Dextrose 105 ml @ 420 mls/hr Q12 IV 09/22/16 21:00 10/22/16 20:59 Valproate Sodium/ Dextrose (Depacon Iv/D5 100ml) 110 ml @ 110 mls/hr 0900 ONCE IV 09/22/16 09:00 09/22/16 09:59 Review of Systems Review of systems cannot be obtained since the patient is intubated and unresponsive. Physical Exam Vital Signs (Past 24 Hrs): Date Time Temp Pulse Resp B/P Pulse Ox O2 Delivery O2 Flow Rate FiO2 09/22/16 08:00 35.4 69 25 94/75 100 Mechanical Ventilator 102/73 09/22/16 08:00 40 09/22/16 07:00 35.2 75 24 124/83 100 Mechanical Ventilator 108/75 09/22/16 06:00 35.1 71 24 105/78 100 Mechanical Ventilator 40 113/80 09/22/16 05:30 40 09/22/16 05:00 35.0 73 24 133/68 100 Mechanical Ventilator 40 114/78 09/22/16 04:00 100 Mechanical Ventilator 40 09/22/16 04:00 40 09/22/16 04:00 34.7 72 24 124/84 100 Mechanical Ventilator 40 119/70 09/22/16 03:00 34.6 68 24 110/82 100 Mechanical Ventilator 40 107/73 09/22/16 02:30 40 09/22/16 02:00 34.5 70 24 119/93 100 Mechanical Ventilator 40 119/81 09/22/16 01:00 34.2 65 24 101/80 100 Mechanical Ventilator 40 114/82 09/22/16 00:01 33.8 71 24 147/79 100 Mechanical Ventilator 40 126/86 09/21/16 23:59 100 Mechanical Ventilator 40 09/21/16 23:59 40 09/21/16 23:05 40 09/21/16 23:00 33.4 64 24 121/69 100 Mechanical Ventilator 40 111/80 09/21/16 22:00 32.9 61 24 109/80 100 Mechanical Ventilator 40 110/75 09/21/16 21:00 32.5 70 24 113/96 99 Mechanical Ventilator 40 130/88 09/21/16 20:00 32.5 55 24 124/73 99 Mechanical Ventilator 40 09/21/16 20:00 40 09/21/16 20:00 99 Mechanical Ventilator 40 09/21/16 19:15 40 09/21/16 19:00 32.7 60 24 109/79 99 Mechanical Ventilator 40 119/72 09/21/16 18:00 33.1 76 24 111/86 98 Mechanical Ventilator 40 09/21/16 17:52 40 09/21/16 17:00 33.4 60 24 137/79 98 Mechanical Ventilator 40 09/21/16 16:00 40 09/21/16 16:00 33.5 75 24 125/88 98 Mechanical Ventilator 40 09/21/16 16:00 100 Mechanical Ventilator 40 09/21/16 15:00 33.3 58 20 119/100 98 Mechanical Ventilator 40 09/21/16 14:16 40 09/21/16 14:00 33.0 70 20 116/83 98 Mechanical Ventilator 40 09/21/16 13:00 32.8 62 20 134/86 98 Mechanical Ventilator 40 09/21/16 12:00 40 09/21/16 12:00 100 Mechanical Ventilator 40 09/21/16 12:00 32.7 70 20 122/85 98 Mechanical Ventilator 40 09/21/16 11:05 40 09/21/16 11:00 32.7 58 20 136/100 98 Mechanical Ventilator 40 09/21/16 10:00 32.7 55 20 109/85 100 Mechanical Ventilator 40 09/21/16 09:00 32.8 63 20 107/81 100 Mechanical Ventilator 40 The patient is lying in bed intubated, eyes closed, with no spontaneous movement. With shout and gentle shake hands no response. Eyes (passively. Eyes are front and with head turning he has no oculocephalic head movements. Pupils are small at 2-3 mm and they are sluggishly reactive to light. Discs are difficult to visualize but appear sharp bilaterally. He has a positive cough to suctioning. Has no gag. He has no corneal reflexes to cotton stimuli bilaterally. Neck is supple. Tone is decreased in the limbs. Toes are upgoing to plantar stimulation bilaterally. Reflexes are 2/4 in the legs and 1/4 in the arms. He has somewhat strong and grimace movement with deep pain in the feet bilaterally. The right arm does not wrist drop. The left has subtle withdrawal only. Laboratory Results Past 24 Hours: Test 09/22/16 00:07 09/22/16 04:03 09/22/16 04:04 09/22/16 07:47 Bedside Glucose (other) 114 mg/dl (70-99) Blood Gas Sample Site Art Line Bedside Blood Gas pH (LAB) 7.36 (7.35-7.45) Bedside Blood Gas pCO2 (LAB) 37 mmHg (35-46) Bedside Blood Gas pO2 (LAB) 119 mmHg (80-95) Bedside Blood Gas HCO3 (LAB) 22 meq/L (19-24) Bedside Blood Gas Total CO2 23 mEq/l (24-31) Bedside Blood Gas Base Excess (LAB) -4.0 meq/L (-9-1.8) Bedside Blood Gas O2 Saturation 99.0 % (90-95) Augustine Test NA Oxygen Delivery Device Ventilator Bedside Oxygen Rate (breaths/min) 24 Blood Gas Minute Ventilation 12.5 Bedside FiO2 40 % Blood Gas Tidal Volume 550 Blood Gas PEEP 10 RDW Standard Deviation 44.9 fL (36.4-46.3) RDW Coefficient of Variation 13.7 % (11.5-14.5) White Blood Count 11.65 K/uL (4.8-10.8) Red Blood Count 4.30 M/uL (4.7-6.1) Hemoglobin 14.1 g/dL (14.0-18.0) Hematocrit 39.0 % (42-52) Mean Corpuscular Volume 90.7 fL (80-100) Mean Corpuscular Hemoglobin 32.8 pg (25-34) Mean Corpuscular Hemoglobin Concent 36.2 g/dl (32-36) Platelet Count 137 K/uL (130-400) Mean Platelet Volume 9.5 fL (7.4-10.4) Neutrophils (%) (Auto) 82.2 % Lymphocytes (%) (Auto) 9.3 % Monocytes (%) (Auto) 7.8 % Eosinophils (%) (Auto) 0.3 % Basophils (%) (Auto) 0.1 % Neutrophils # (Auto) 9.57 K/uL (1.4-6.5) Lymphocytes # (Auto) 1.08 K/uL (1.2-3.4) Monocytes # (Auto) 0.91 K/uL (0.11-0.59) Eosinophils # (Auto) 0.04 K/uL (0-0.5) Basophils # (Auto) 0.01 K/uL (0-0.2) Immature Granulocyte % (Auto) 0.3 % Immature Granulocyte # (Auto) 0.04 K/uL (0.00-0.02) Red Blood Cell Morphology Unremarkable Est Creatinine Clear Calc Drug Dose 212.3 ml/min Total Bilirubin 0.5 mg/dl (0.2-1) Direct Bilirubin 0.2 mg/dl (0-0.2) Aspartate Amino Transf (AST/SGOT) 61 U/L (15-37) Alanine Aminotransferase (ALT/SGPT) 47 U/L (12-78) Alkaline Phosphatase 37 U/L (45-117) Total Protein 6.2 gm/dl (6.4-8.2) Albumin 3.7 gm/dl (3.4-5.0) Bedside Glucose 110 mg/dl (70-99) Test 09/22/16 08:00 Impression 1. Cardiac arrest likely secondary to ventricular arrhythmia September 20. He has been through cooling protocol with typical neuromuscular blockers and Versed. He is going through the rewarming phase slowly and is noted to have seizures. I suspect global hypoxic injury to the central nervous system, but it is too early to tell how extensive is the damage. 2. Frequent (5 per 30 minutes), significant bilateral generalized tonic-clonic seizure activity noted in the hands and shoulders and eyes, lasting 20-30 seconds There are continuing despite a 1000 mg Keppra loading dose. Plan 1. 1000 mg loading dose IV Depakote. 2. We are going to get an EEG prior to this loading dose. 3. Depakote 250 mg IV every 6 hours and follow daily Depakote levels. 4. I'm not certain the patient needs Keppra at this time. 5. Continue rewarming protocol. 6. MRI of the brain would be ideal but this is not practical at this time. 7. Noncontrast CT scan of the head at first. I spoke with Dr. Rowe regarding differential diagnosis and treatment options , and I will follow. I spent a total of 120 minutes with direct patient care with this patient this morning Addendum: EEG shows moderate generalized slowing without potentially epileptogenic activity.
[2016-09-22 09:13] LABS: COMPLETE YES; EOS % 0.2 %; HEMATOCRIT 35.5 % (42-52); IG% 0.2 %; LYMPH % 6.9 %; LYMPH ABS # 0.72 K/uL (1.2-3.4); MEAN CELL VOLUME 90.1 fL (80-100); MEAN CORPUSCULAR HEMOGLOBIN 31.7 pg (25-34); MEAN CORPUSCULAR HGB CONC 35.2 g/dl (32-36); MEAN PLATELET VOLUME 9.2 fL (7.4-10.4); NEUT % 85.7 %; PLATELET COUNT 130 K/uL (130-400); RED BLOOD COUNT 3.94 M/uL (4.7-6.1); WHITE BLOOD COUNT 10.44 K/uL (4.8-10.8)
[2016-09-22 09:33] LABS: INR 1.1 (0.9-1.1); PARTIAL THROMBOPLASTIN RATIO 2.1; PROTHROMBIN TIME (PATIENT) 12.1 SECONDS (9.0-12.0)
[2016-09-22 09:41] LABS: BUN/CREATININE RATIO 18.4 (10-20); CALCIUM 7.4 mg/dl (8.5-10.1); CREATININE 0.58 mg/dl (0.60-1.40); MAGNESIUM 1.9 mg/dl (1.8-2.4); PHOSPHORUS 1.8 mg/dl (2.5-4.9); POTASSIUM 4.5 mmol/L (3.5-5.1)
[2016-09-22] MEDS ORDERED: ACETAMINOPHEN 650 MG SUPP PR PRN (10:00)
[2016-09-22] MEDS ORDERED: MEPERIDINE HCL 25 MG/ML CARP IV PRN (10:00)
[2016-09-22] MEDS ORDERED: BusPIRone 15 MG TAB NG PRN (10:00)
[2016-09-22] MEDS ORDERED: MEPERIDINE HCL 50 MG/ML CARP ONE (10:07)
[2016-09-22] MEDS ORDERED: VALPROATE SOD IV 1,000 MG in DEXTROSE 5% 50ML 50 ML IV ONE (10:15)
[2016-09-22] MEDS ORDERED: VALPROATE SOD IV 250 MG in DEXTROSE 5% 50ML 50 ML IV SCH (10:15)
[2016-09-22] MEDS ORDERED: SODIUM PHOSPHATE 3 MMOL/1 ML INFUSION IV STA ×3 (10:35→13:24)
--- NOTE | 2016-09-22 10:37 | EEG Procedure Note ---
EEG Procedure Note Date of Service Sep 22, 2016. Start / End Times Start Time: 919 End Time: [address] Rowe History 66-year-old with respiratory arrest September 20 who underwent cooling protocol now rewarming with tonic-clonic seizure activity Home Medication List Scheduled Aspirin (Aspirin Tab-Chewable *), 81 MG PO DAILY Inpatient Medication List Current Inpatient Medications Medications (Trade) Dose Ordered Sig/Christina Route Start Time Stop Time Status Last Admin Dose Admin Artificial Tears 1 appln 1 appln Q2H PRN OPB 09/20/16 17:00 10/20/16 16:59 09/21/16 11:26 1 APPLN Pantoprazole Sodium 40 mg/ Syringe 10 ml @ 5 mls/min DAILY@11 IV 09/21/16 11:00 10/21/16 10:59 09/21/16 10:48 5 MLS/MIN Midazolam HCl (Midazolam 125MG/ 250ML D5w) 250 ml @ 0 mls/hr Q0M PRN IV 09/20/16 16:57 10/20/16 16:56 Meperidine HCl 25 mg 25 mg Q2H PRN IV 09/20/16 17:00 10/04/16 16:59 Fentanyl Citrate 250 ml @ 0 mls/hr Q0M PRN IV 09/20/16 16:57 10/04/16 16:56 Amiodarone HCL/ Dextrose 200 ml @ 16.7 mls/hr [id number] IV 09/20/16 23:15 10/20/16 23:14 09/22/16 06:13 16.7 MLS/HR Norepinephrine Bitartrate/ Dextrose (Levophed Inj/ D5W 500ml) 508 ml @ 0 mls/hr Q0M PRN IV 09/20/16 17:30 10/20/16 17:29 Insulin Aspart SLIDING SCALE PCHS SC 09/20/16 21:00 10/20/16 20:59 Parenteral Electrolyte Solution 1,000 ml @ 125 mls/hr Q8H IV 09/20/16 17:30 10/20/16 17:29 09/22/16 07:53 125 MLS/HR Cisatracurium Besylate/Sodium Chloride (Nimbex INJ/Nss 100ml) 100 ml @ 0 mls/hr Q0M PRN IV 09/20/16 17:45 10/20/16 17:44 09/22/16 02:15 11.9 MLS/HR Miscellaneous Information ( Icu Electrolyte Replacement Protocol) 1 ea per protocol PRN N/A 09/20/16 17:30 09/27/16 17:29 Glucose (Glucose 40% Gel) 15-30 GRAMS 15 GRAMS... UD PRN PO 09/20/16 18:00 10/20/16 17:59 Glucose (Glucose Chew Tab) 4-8 Tablets 4 Tabl... UD PRN PO 09/20/16 18:00 10/20/16 17:59 Dextrose (Dextrose 50% 50ML Syringe) 25-50ML OF 50% DW IV FOR... UD PRN IV 09/20/16 18:00 10/20/16 17:59 Glucagon 1 mg 1 mg UD PRN SQ 09/20/16 18:00 10/20/16 17:59 Heparin Sodium/ Dextrose (Heparin 25,000 Unit/500ml D5W) 500 ml @ 18 mls/hr Q24H PRN IV 09/20/16 20:45 10/20/16 20:44 09/21/16 21:20 18 MLS/HR Enteral Nutritional Formula (Peptamen Intense VHP) 1,000 ml UD OG 09/21/16 09:00 10/21/16 08:59 09/21/16 11:07 1,000 ML Heparin Sodium (Porcine) (Heparin 10 Unit/ ml 5 ml Flush) 5 ml PRN PRN FLUSH 09/21/16 01:15 10/21/16 01:14 Buspirone HCl (BusPAR TAB) 60 mg ONE PRN NG 09/22/16 10:00 10/22/16 09:59 Acetaminophen 650 mg 650 mg ONE PRN LA 09/22/16 10:00 10/22/16 09:59 Valproate Sodium 1000 mg/Dextrose 60 ml @ 55 mls/hr ONE ONCE IV 09/22/16 10:15 09/22/16 11:20 UNV Valproate Sodium/ Dextrose (Depacon Iv/D5 50ml) 52.5 ml @ 55 mls/hr Q6H IV 09/22/16 10:15 10/22/16 10:14 UNV Description This is a 21 electrode EEG with a single channel dedicated to limited EKG. The electrodes were placed in accordance with the International 10-20 system. Interpretation The predominant background activity consists of a somewhat irregular 4-6 Hz activity seen symmetrically distributed overall head regions diffusely of up to 40 V in amplitude. There were frequent, irregular, ventilator artifact changes noted on machine. This recording had no change in background activity with shout or passive eye opening. With deep stimulation in the legs there was some reactivity as noted by some movement of the head and some muscle activity but no significant change in the background activity. Deep stimulation of the arms produced little to no activity change. Photic stimulation was not performed on this bedside EEG in the ICU. Throughout the recording no potentially epileptogenic activity was noted and no focal abnormalities were seen. In summary, this study is remarkable for moderate generalized dysrhythmia without focal abnormality and without potentially epileptogenic discharges seen. There was some reactivity to some stimuli as noted above. Clinical Correlation The absence of potentially epileptogenic activity does not exclude a seizure disorder. Clinical correlation is required. The moderate slowing is consistent with a significant encephalopathy of a generalized nature.
[2016-09-22] MEDS ORDERED: POTASSIUM PHOSPHATE INJ 24 MMOL in SODIUM CHLORIDE 0.9% 500ML 500 ML IV ONE (11:00)
[2016-09-22] MEDS: ALBUMIN HUMAN 25% 12.5 GM/50 ML VIAL IV SCH ×5 (11:04→22:24)
[2016-09-22] MEDS: PANTOprazole INJ 40 MG in SYRINGE 0 ML IV SCH (11:04)
[2016-09-22] MEDS: MIDAZOLAM 125MG/250ML D5W 250 ML IV PRN ×2 (11:24→23:11)
[2016-09-22] MEDS: NOREPINEPHRINE BIT INJ 8 MG in DEXTROSE 5% 500ML 500 ML IV PRN (11:30)
[2016-09-22] MEDS: VALPROATE SOD IV 250 MG in DEXTROSE 5% 50ML 50 ML IV SCH ×2 (11:32→16:52)
[2016-09-22] MEDS: MEPERIDINE HCL 25 MG/ML CARP IV PRN (12:23)
--- NOTE | 2016-09-22 13:19 | Critical Care Progress Note ---
Critical Care Progress Note Date of Service Sep 22, 2016. ICU Day ICU Day Number: [address] Rowe Subjective She noted that patient was having facial twitches at the bedside No limb movements Tolerated rewarming protocol so far, temperature is been 35 Other issues overnight Objective Constitutional: Vital signs review below Eyes: Pupils equal, round, and reactive to light. Extraocular muscles are intact. No proptosis. No photophobia. ENT: Mucous membranes are moist. Oropharynx is clear. No sinus tenderness. TMs are clear bilaterally. ET tube in place OG tube in place Cardiovascular: Heart with a regular rate and rhythm. Pulses are palpable and symmetric in all 4 extremities. No pedal edema appreciated. Respiratory: Lungs clear to auscultation bilaterally. No wheezes, rales, or rhonchi appreciated. No accessory muscle use. No retractions. No increased work of breathing. On mechanical ventilation GI: Abdomen soft, nontender, nondistended. Normal active bowel sounds. No abdominal hernias appreciated. No rebound. No guarding. : No CVA tenderness appreciated. Musculoskeletal: No midline cervical or vertebral tenderness. No gross deformities. No bony tenderness. No calf swelling or tenderness. Integumentary: Warm, dry, no rashes appreciated. Sternal abrasion palomino; CURLY compression site IV access sites intact without evidence of infection Neurological: RASS -4 Lymph: No cervical lymphadenopathy appreciated. Assessment & Plan 66 year old male, day 3 of ICU admission, admitted for out-of hospital Vfib arrest. Patient is currently in the rewarming of therapeutic hypothermia protocol. Remained stable overnight. It was noted today that he is having, facial twitching, concerning for seizures. In this case would be most concerned for brain anoxia secondary to low cardiac output during V. fib arrest out of hospital. Problem list includes: - Seizure activity - S/p V. fib arrest - S/p aortic valve replacement/bicuspid aortic valve - Acute congestive heart failure with reduce EF 20-25% - Thoracic aortic aneurysm stable - Paroxysmal atrial fibrillation NEUROLOGICAL - GCS: 3 - Sedation: Versed increased to 8 mg per hour; BIS goal < 60 Cisatracurium; discontinued - RASS: - 4 Keep Goal RASS -4 - Pain regimen: Fentanyl 25 mcg/hr Demerol 25 mg q 2 hours - Seizure activity Concerning for anoxic brain injury, given out of hospital arrest Patient was given 6 more grams of Ativan, along with Keppra load Neurologist in consultation is seen the patient; recommend starting valproic acid Valproate 1 g now followed by 250 mg IV every [address] brain Repeat EEG today CARDIAC - BP: Maintaining mean arterial pressure 70-80 - Vasopressor support: Levofed, titrate to MAP greater than 65 - IV Fluids: Normasol R running @ 150 ml/hr - Day 2 s/p cardiac catheterization with clean coronaries - Cardiology consulted - Status Post-Vfib arrest - Therapeutic hypothermia protocol; in the rewarming phase - Acute Systolic CHF with reduced EF - EF 20-25% - Do not start any antihypertensives at this point - History of Paroxysmal Atrial Fibrillation - Rate currently controlled; increased since rewarming and currently ranging 60-80 -Was not on rate or rhythm control or anticoagulation in the outpatient setting - Continue IV heparin - Continue Amiodarone infusion RESPIRATORY - RR: 24, on mechanical ventilation; SPO2 98-100% - Ventilator settings: RR 24 / FiO2 40% / Vt 550 / PEEP 10 - AB.36 / 37 / 119 / Bicarb 22 Reduce FiO2 to 30%; maintain all other ventilatory settings GASTROINTESTINAL - Diet: OG tube in place, increased feed rate to 20 ml an hour - GI Prophylaxis: Protonix 40 mg QD - Bowel regimen: No BM yet since admission; will continue to follow RENAL//ENDOCRINE - Fluid Balance +3800 mL yesterday +4500 ml globally - Follow urine output: Goal 0.5 ml/kg/day; urine output yesterday 0.71 mL/kg/hr - Cr: Her 0.58, stable - Electrolytes: Calcium 7.4; check ionized calcium level, replete as needed Phosphorous 1.8; replete with 24 mmol of sodium phosphate - IV Fluids: Discontinue Normosol, as patient is globally positive nearly 5 L N We will administer 50 g of 25% albumin now and in 12 hours, to allow for intravascular mobilization of fluid - Goal Fluid Balance: Net Even - BSG: Consistently 110-120 Continue Insulin infusion per protocol q4h Acuchecks Stop sliding scale insulin Hypokalemia - KCl running at 50 ml/hr Hypophosphatemia - 24 mmol NaPhos HEME/INFECTIOUS DISEASE - Tmax: 35.8 WBC: 10 - Hb/Hct 12.5/35, reduced from @ 0400 - Plt; 130 - Lactate 3 - DVT Prophylaxis IV Heparin infusion LINES/IV ACCESS - Left radial arterial catheter - Right 18 G peripheral IV - Left subclavian triple-lumen CVC CODE STATUS - Full Code DISPOSITION - OT/PT: Recommended following weaning from sedation and post-hypothermia protocol - Requires ICU stay for rewarming hypothermia protocol, continuous IV sedation, and cardiac monitoring Resident Physician Supervision Note: Dr. Blount was resident physician during care of patient. I separately evaluated patient and did history and exam. I discussed the case with the resident and generally agree with the findings and plan. Today during the rewarming phase the patient had rhythmic myoclonic activity of the face a EEG was obtained which I reviewed the findings and discussed the case with Dr. Mooney of neurology. The patient appeared to have recalcitrant myoclonic jerks to benzodiazepines so I initially loaded the patient with Keppra. Since that time we have loaded the patient with Depakote and discontinue the Keppra. Patient's temperature continues to climb rather rapidly attempting to have a smooth rewarming curve, our largest goal is to prevent rebound hyperthermia. We will continue the heparin, were decreasing the ventilator settings, patient remains critically ill. We were able to obtain the patient's living will and healthcare surrogate which designates his significant other Enedina Hayes. I have personally spent 65 minutes of critical care time in the direct management of this patient. This is a life/limb threatening event. This includes time spent evaluating patient, direct bedside care, chart review, placing orders, interpretation of diagnostic studies, discussion with consultants, patient, and family members, as well as other required patient management activities. This time is exclusive of all separately billable procedures, and teaching time and separate from and in addition to any other critical care service time. Documented By: Danielito Rowe DO Consults & Procedures Consultants: Cardiology Procedures: CVC, see separate procedure note Arterial Line placement, see separate procedure note Data Medications: Current Inpatient Medications Medications (Trade) Dose Ordered Sig/Christina Route Start Time Stop Time Status Last Admin Dose Admin Artificial Tears 1 appln 1 appln Q2H PRN OPB 09/20/16 17:00 10/20/16 16:59 09/21/16 11:26 1 APPLN Pantoprazole Sodium 40 mg/ Syringe 10 ml @ 5 mls/min DAILY@11 IV 09/21/16 11:00 10/21/16 10:59 09/22/16 11:04 5 MLS/MIN Midazolam HCl (Midazolam 125MG/ 250ML D5w) 250 ml @ 0 mls/hr Q0M PRN IV 09/20/16 16:57 10/20/16 16:56 09/22/16 11:24 16 MLS/HR Meperidine HCl 25 mg 25 mg Q2H PRN IV 09/20/16 17:00 10/04/16 16:59 09/22/16 12:23 25 MG Fentanyl Citrate 250 ml @ 0 mls/hr Q0M PRN IV 09/20/16 16:57 10/04/16 16:56 Amiodarone HCL/ Dextrose 200 ml @ 16.7 mls/hr [id number] IV 09/20/16 23:15 10/20/16 23:14 09/22/16 06:13 16.7 MLS/HR Norepinephrine Bitartrate 8 mg/ Dextrose 508 ml @ 0 mls/hr Q0M PRN IV 09/20/16 17:30 10/20/16 17:29 09/22/16 11:30 39.8 MLS/HR Cisatracurium Besylate/Sodium Chloride (Nimbex INJ/Nss 100ml) 100 ml @ 0 mls/hr Q0M PRN IV 09/20/16 17:45 10/20/16 17:44 09/22/16 02:15 11.9 MLS/HR Miscellaneous Information ( Icu Electrolyte Replacement Protocol) 1 ea per protocol PRN N/A 09/20/16 17:30 09/27/16 17:29 Glucose (Glucose 40% Gel) 15-30 GRAMS 15 GRAMS... UD PRN PO 09/20/16 18:00 10/20/16 17:59 Glucose (Glucose Chew Tab) 4-8 Tablets 4 Tabl... UD PRN PO 09/20/16 18:00 10/20/16 17:59 Dextrose (Dextrose 50% 50ML Syringe) 25-50ML OF 50% DW IV FOR... UD PRN IV 09/20/16 18:00 10/20/16 17:59 Glucagon 1 mg 1 mg UD PRN SQ 09/20/16 18:00 10/20/16 17:59 Heparin Sodium/ Dextrose (Heparin 25,000 Unit/500ml D5W) 500 ml @ 18 mls/hr Q24H PRN IV 09/20/16 20:45 10/20/16 20:44 09/21/16 21:20 18 MLS/HR Enteral Nutritional Formula (Peptamen Intense VHP) 1,000 ml UD OG 09/21/16 09:00 10/21/16 08:59 09/21/16 11:07 1,000 ML Heparin Sodium (Porcine) (Heparin 10 Unit/ ml 5 ml Flush) 5 ml PRN PRN FLUSH 09/21/16 01:15 10/21/16 01:14 Buspirone HCl (BusPAR TAB) 60 mg ONE PRN NG 09/22/16 10:00 10/22/16 09:59 Acetaminophen (Tylenol Supp) 650 mg ONE PRN MN 09/22/16 10:00 10/22/16 09:59 Albumin Human (Albumin 25%) 12.5 gm Q1H IV 09/22/16 22:00 09/23/16 01:01 Albumin Human 12.5 gm 12.5 gm Q1H IV 09/22/16 11:00 09/22/16 14:01 09/22/16 12:24 12.5 GM Potassium Phosphate 24 mmol/ Sodium Chloride 508 ml @ 127 mls/hr TODAY@1100 ONCE IV 09/22/16 11:00 09/22/16 14:59 09/22/16 11:24 127 MLS/HR Valproate Sodium/ Dextrose (Depacon Iv/D5 50ml) 52.5 ml @ 55 mls/hr Q6 IV 09/22/16 12:00 10/22/16 11:59 09/22/16 11:32 55 MLS/HR I & O: 24-Hour Column 09/22/16 07:59 Intake Total 6126 ml Output Total 1389 ml Balance 4737 ml Vital Signs: Date Time Temp Pulse Resp B/P Pulse Ox O2 Delivery O2 Flow Rate FiO2 09/22/16 12:00 35.8 71 24 120/71 98 Mechanical Ventilator 108/74 09/22/16 12:00 100 Mechanical Ventilator 30 09/22/16 12:00 30 09/22/16 11:30 30 09/22/16 11:00 36.0 68 24 93/49 100 Mechanical Ventilator 87/50 09/22/16 10:00 36.1 84 24 112/59 100 Mechanical Ventilator 95/70 09/22/16 09:00 35.7 71 24 98/62 100 Mechanical Ventilator 94/72 09/22/16 08:15 40 09/22/16 08:00 35.4 69 25 94/75 100 Mechanical Ventilator 102/73 09/22/16 08:00 Mechanical Ventilator 40 09/22/16 08:00 100 Mechanical Ventilator 40 09/22/16 08:00 40 09/22/16 07:00 35.2 75 24 124/83 100 Mechanical Ventilator 108/75 09/22/16 06:00 35.1 71 24 105/78 100 Mechanical Ventilator 40 113/80 09/22/16 05:30 40 09/22/16 05:00 35.0 73 24 133/68 100 Mechanical Ventilator 40 114/78 09/22/16 04:00 100 Mechanical Ventilator 40 09/22/16 04:00 40 09/22/16 04:00 34.7 72 24 124/84 100 Mechanical Ventilator 40 119/70 09/22/16 03:00 34.6 68 24 110/82 100 Mechanical Ventilator 40 107/73 09/22/16 02:30 40 09/22/16 02:00 34.5 70 24 119/93 100 Mechanical Ventilator 40 119/81 09/22/16 01:00 34.2 65 24 101/80 100 Mechanical Ventilator 40 114/82 09/22/16 00:01 33.8 71 24 147/79 100 Mechanical Ventilator 40 126/86 09/21/16 23:59 100 Mechanical Ventilator 40 09/21/16 23:59 40 09/21/16 23:05 40 09/21/16 23:00 33.4 64 24 121/69 100 Mechanical Ventilator 40 111/80 09/21/16 22:00 32.9 61 24 109/80 100 Mechanical Ventilator 40 110/75 09/21/16 21:00 32.5 70 24 113/96 99 Mechanical Ventilator 40 130/88 09/21/16 20:00 32.5 55 24 124/73 99 Mechanical Ventilator 40 09/21/16 20:00 40 09/21/16 20:00 99 Mechanical Ventilator 40 09/21/16 19:15 40 09/21/16 19:00 32.7 60 24 109/79 99 Mechanical Ventilator 40 119/72 09/21/16 18:00 33.1 76 24 111/86 98 Mechanical Ventilator 40 09/21/16 17:52 40 09/21/16 17:00 33.4 60 24 137/79 98 Mechanical Ventilator 40 09/21/16 16:00 40 09/21/16 16:00 33.5 75 24 125/88 98 Mechanical Ventilator 40 09/21/16 16:00 100 Mechanical Ventilator 40 09/21/16 15:00 33.3 58 20 119/100 98 Mechanical Ventilator 40 09/21/16 14:16 40 09/21/16 14:00 33.0 70 20 116/83 98 Mechanical Ventilator 40 09/21/16 13:00 32.8 62 20 134/86 98 Mechanical Ventilator 40 Laboratory Results: Last 24 Hours Test 09/21/16 12:59 09/21/16 14:05 09/21/16 15:14 09/21/16 15:35 Prothrombin Time 12.8 SECONDS Prothromb Time International Ratio 1.2 Activated Partial Thromboplast Time 118.2 SECONDS Partial Thromboplastin Ratio 4.5 Bedside Glucose (other) 126 mg/dl 130 mg/dl Blood Gas Sample Site Art Line Bedside Blood Gas pH (LAB) 7.29 Bedside Blood Gas pCO2 (LAB) 46 mmHg Bedside Blood Gas pO2 (LAB) 91 mmHg Bedside Blood Gas HCO3 (LAB) 23 meq/L Bedside Blood Gas Total CO2 25 mEq/l Bedside Blood Gas Base Excess (LAB) -4.0 meq/L Bedside Blood Gas O2 Saturation 97.0 % Augustine Test NA Oxygen Delivery Device Ventilator Bedside Oxygen Rate (breaths/min) 20 Blood Gas Minute Ventilation 10.3 Bedside FiO2 40 % Blood Gas Tidal Volume 550 Blood Gas PEEP 10 Test 09/21/16 15:52 09/21/16 16:02 09/21/16 17:12 09/21/16 18:13 White Blood Count 18.40 K/uL Red Blood Count 4.79 M/uL Hemoglobin 15.4 g/dL Hematocrit 42.3 % Mean Corpuscular Volume 88.3 fL Mean Corpuscular Hemoglobin 32.2 pg Mean Corpuscular Hemoglobin Concent 36.4 g/dl Platelet Count 179 K/uL Mean Platelet Volume 9.2 fL Neutrophils (%) (Auto) 84.6 % Lymphocytes (%) (Auto) 7.4 % Monocytes (%) (Auto) 7.5 % Eosinophils (%) (Auto) 0.1 % Basophils (%) (Auto) 0.1 % Neutrophils # (Auto) 15.58 K/uL Lymphocytes # (Auto) 1.36 K/uL Monocytes # (Auto) 1.38 K/uL Eosinophils # (Auto) 0.01 K/uL Basophils # (Auto) 0.01 K/uL RDW Standard Deviation 42.6 fL RDW Coefficient of Variation 13.1 % Immature Granulocyte % (Auto) 0.3 % Immature Granulocyte # (Auto) 0.06 K/uL Sodium Level 142 mmol/L Potassium Level 4.5 mmol/L Chloride Level 109 mmol/L Carbon Dioxide Level 24 mmol/L Anion Gap 9.0 mmol/L Blood Urea Nitrogen 11 mg/dl Creatinine 0.56 mg/dl Est Creatinine Clear Calc Drug Dose 163.0 ml/min Estimated GFR () 125.8 Estimated GFR (Non- 108.5 BUN/Creatinine Ratio 19.3 Random Glucose 126 mg/dl Calcium Level 7.4 mg/dl Phosphorus Level 3.0 mg/dl Magnesium Level 1.9 mg/dl Bedside Glucose (other) 128 mg/dl 126 mg/dl 124 mg/dl Test 09/21/16 19:19 09/21/16 20:00 09/21/16 20:09 09/21/16 20:17 Bedside Glucose (other) 124 mg/dl 127 mg/dl White Blood Count 15.60 K/uL Red Blood Count 4.71 M/uL Hemoglobin 15.5 g/dL Hematocrit 42.4 % Mean Corpuscular Volume 90.0 fL Mean Corpuscular Hemoglobin 32.9 pg Mean Corpuscular Hemoglobin Concent 36.6 g/dl Platelet Count 156 K/uL Mean Platelet Volume 9.1 fL Neutrophils (%) (Auto) 85.3 % Lymphocytes (%) (Auto) 7.1 % Monocytes (%) (Auto) 6.9 % Eosinophils (%) (Auto) 0.2 % Basophils (%) (Auto) 0.1 % Neutrophils # (Auto) 13.33 K/uL Lymphocytes # (Auto) 1.10 K/uL Monocytes # (Auto) 1.07 K/uL Eosinophils # (Auto) 0.03 K/uL Basophils # (Auto) 0.01 K/uL RDW Standard Deviation 43.5 fL RDW Coefficient of Variation 13.2 % Immature Granulocyte % (Auto) 0.4 % Immature Granulocyte # (Auto) 0.06 K/uL Prothrombin Time 12.3 SECONDS Prothromb Time International Ratio 1.1 Activated Partial Thromboplast Time 92.4 SECONDS Partial Thromboplastin Ratio 3.6 Sodium Level 142 mmol/L Potassium Level 4.2 mmol/L Chloride Level 110 mmol/L Carbon Dioxide Level 23 mmol/L Anion Gap 9.0 mmol/L Blood Urea Nitrogen 11 mg/dl Creatinine 0.45 mg/dl Est Creatinine Clear Calc Drug Dose 202.8 ml/min Estimated GFR () 137.6 Estimated GFR (Non- 118.8 BUN/Creatinine Ratio 24.9 Random Glucose 125 mg/dl Calcium Level 7.3 mg/dl Phosphorus Level 2.0 mg/dl Magnesium Level 2.0 mg/dl Blood Gas Sample Site Art Line Bedside Blood Gas pH (LAB) 7.37 Bedside Blood Gas pCO2 (LAB) 36 mmHg Bedside Blood Gas pO2 (LAB) 97 mmHg Bedside Blood Gas HCO3 (LAB) 22 meq/L Bedside Blood Gas Total CO2 23 mEq/l Bedside Blood Gas Base Excess (LAB) -4.0 meq/L Bedside Blood Gas O2 Saturation 98.0 % Augustine Test NA Oxygen Delivery Device Ventilator Bedside Oxygen Rate (breaths/min) 24 Blood Gas Minute Ventilation 12.5 Bedside FiO2 40 % Blood Gas Tidal Volume 550 Blood Gas PEEP 10 Test 09/21/16 21:36 09/21/16 23:55 09/22/16 00:07 09/22/16 02:04 Bedside Glucose (other) 116 mg/dl 114 mg/dl White Blood Count 13.55 K/uL Red Blood Count 4.35 M/uL Hemoglobin 14.2 g/dL Hematocrit 39.3 % Mean Corpuscular Volume 90.3 fL Mean Corpuscular Hemoglobin 32.6 pg Mean Corpuscular Hemoglobin Concent 36.1 g/dl Platelet Count 142 K/uL Mean Platelet Volume 9.6 fL Neutrophils (%) (Auto) 83.0 % Lymphocytes (%) (Auto) 8.6 % Monocytes (%) (Auto) 8.0 % Eosinophils (%) (Auto) 0.1 % Basophils (%) (Auto) 0.1 % Neutrophils # (Auto) 11.24 K/uL Lymphocytes # (Auto) 1.16 K/uL Monocytes # (Auto) 1.09 K/uL Eosinophils # (Auto) 0.02 K/uL Basophils # (Auto) 0.01 K/uL RDW Standard Deviation 44.0 fL RDW Coefficient of Variation 13.4 % Immature Granulocyte % (Auto) 0.2 % Immature Granulocyte # (Auto) 0.03 K/uL Sodium Level 142 mmol/L Potassium Level 4.5 mmol/L Chloride Level 108 mmol/L Carbon Dioxide Level 22 mmol/L Anion Gap 12.0 mmol/L Blood Urea Nitrogen 11 mg/dl Creatinine 0.45 mg/dl Est Creatinine Clear Calc Drug Dose 202.8 ml/min Estimated GFR () 137.6 Estimated GFR (Non- 118.8 BUN/Creatinine Ratio 24.9 Random Glucose 113 mg/dl Calcium Level 7.4 mg/dl Phosphorus Level 3.4 mg/dl Magnesium Level 1.9 mg/dl Bedside Glucose 102 mg/dl Test 09/22/16 04:03 09/22/16 04:04 09/22/16 04:09 09/22/16 07:47 Blood Gas Sample Site Art Line Bedside Blood Gas pH (LAB) 7.36 Bedside Blood Gas pCO2 (LAB) 37 mmHg Bedside Blood Gas pO2 (LAB) 119 mmHg Bedside Blood Gas HCO3 (LAB) 22 meq/L Bedside Blood Gas Total CO2 23 mEq/l Bedside Blood Gas Base Excess (LAB) -4.0 meq/L Bedside Blood Gas O2 Saturation 99.0 % Augustine Test NA Oxygen Delivery Device Ventilator Bedside Oxygen Rate (breaths/min) 24 Blood Gas Minute Ventilation 12.5 Bedside FiO2 40 % Blood Gas Tidal Volume 550 Blood Gas PEEP 10 White Blood Count 11.65 K/uL Red Blood Count 4.30 M/uL Hemoglobin 14.1 g/dL Hematocrit 39.0 % Mean Corpuscular Volume 90.7 fL Mean Corpuscular Hemoglobin 32.8 pg Mean Corpuscular Hemoglobin Concent 36.2 g/dl Platelet Count 137 K/uL Mean Platelet Volume 9.5 fL Neutrophils (%) (Auto) 82.2 % Lymphocytes (%) (Auto) 9.3 % Monocytes (%) (Auto) 7.8 % Eosinophils (%) (Auto) 0.3 % Basophils (%) (Auto) 0.1 % Neutrophils # (Auto) 9.57 K/uL Lymphocytes # (Auto) 1.08 K/uL Monocytes # (Auto) 0.91 K/uL Eosinophils # (Auto) 0.04 K/uL Basophils # (Auto) 0.01 K/uL RDW Standard Deviation 44.9 fL RDW Coefficient of Variation 13.7 % Immature Granulocyte % (Auto) 0.3 % Immature Granulocyte # (Auto) 0.04 K/uL Red Blood Cell Morphology Unremarkable Prothrombin Time 12.1 SECONDS Prothromb Time International Ratio 1.1 Activated Partial Thromboplast Time 63.6 SECONDS Partial Thromboplastin Ratio 2.4 Sodium Level 142 mmol/L Potassium Level 4.6 mmol/L Chloride Level 110 mmol/L Carbon Dioxide Level 23 mmol/L Anion Gap 9.0 mmol/L Blood Urea Nitrogen 11 mg/dl Creatinine 0.43 mg/dl Est Creatinine Clear Calc Drug Dose 212.3 ml/min Estimated GFR () 140.2 Estimated GFR (Non- 121.0 BUN/Creatinine Ratio 25.7 Random Glucose 112 mg/dl Calcium Level 7.3 mg/dl Phosphorus Level 2.3 mg/dl Magnesium Level 2.0 mg/dl Total Bilirubin 0.5 mg/dl Direct Bilirubin 0.2 mg/dl Aspartate Amino Transf (AST/SGOT) 61 U/L Alanine Aminotransferase (ALT/SGPT) 47 U/L Alkaline Phosphatase 37 U/L Total Protein 6.2 gm/dl Albumin 3.7 gm/dl Bedside Glucose 105 mg/dl 110 mg/dl Test 09/22/16 08:40 09/22/16 10:53 09/22/16 11:48 White Blood Count 10.44 K/uL Red Blood Count 3.94 M/uL Hemoglobin 12.5 g/dL Hematocrit 35.5 % Mean Corpuscular Volume 90.1 fL Mean Corpuscular Hemoglobin 31.7 pg Mean Corpuscular Hemoglobin Concent 35.2 g/dl Platelet Count 130 K/uL Mean Platelet Volume 9.2 fL Neutrophils (%) (Auto) 85.7 % Lymphocytes (%) (Auto) 6.9 % Monocytes (%) (Auto) 7.0 % Eosinophils (%) (Auto) 0.2 % Basophils (%) (Auto) 0.0 % Neutrophils # (Auto) 8.95 K/uL Lymphocytes # (Auto) 0.72 K/uL Monocytes # (Auto) 0.73 K/uL Eosinophils # (Auto) 0.02 K/uL Basophils # (Auto) 0.00 K/uL RDW Standard Deviation 45.3 fL RDW Coefficient of Variation 13.7 % Immature Granulocyte % (Auto) 0.2 % Immature Granulocyte # (Auto) 0.02 K/uL Prothrombin Time 12.1 SECONDS Prothromb Time International Ratio 1.1 Activated Partial Thromboplast Time 54.6 SECONDS Partial Thromboplastin Ratio 2.1 Sodium Level 141 mmol/L Potassium Level 4.5 mmol/L Chloride Level 108 mmol/L Carbon Dioxide Level 25 mmol/L Anion Gap 8.0 mmol/L Blood Urea Nitrogen 11 mg/dl Creatinine 0.58 mg/dl Est Creatinine Clear Calc Drug Dose 157.4 ml/min Estimated GFR () 124.0 Estimated GFR (Non- 107.0 BUN/Creatinine Ratio 18.4 Random Glucose 134 mg/dl Calcium Level 7.4 mg/dl Phosphorus Level 1.8 mg/dl Magnesium Level 1.9 mg/dl Lactic Acid Level 3.2 mmol/L Bedside Glucose 109 mg/dl
[2016-09-22] MEDS ORDERED: SODIUM PHOSPHATE INJ 21 MMOL in SODIUM CHLORIDE 0.9% 500ML 500 ML IV ONE (13:30)
--- NOTE | 2016-09-22 13:42 | PROGRESS NOTE ---
DATE: 09/22/2016 SUBJECTIVE: The patient is seen and examined at the bedside. Seizure activity reported by nursing this a.m. and neurology was consulted. The patient was started on the Depakote infusion. No further seizure-like activity. Currently, multiple intravenous infusions including amiodarone, fentanyl, Versed, heparin, Depakote, and potassium phosphate. Remains in atrial fibrillation with a controlled ventricular response on telemetry. The patient is unresponsive with pinpoint pupils. Cardiac catheterization performed urgently on admission demonstrate no CAD culprit for patient's cardiac arrest. No recurrent ventricular dysrhythmias on telemetry. REVIEW OF SYSTEMS: The pertinent positive noted above. Review of systems cannot be completed as the patient is sedated and ventilated. ALLERGIES: No known drug allergies. MEDICATIONS: Reviewed via EMR. Please see list for details. ECG from 11:44 a.m. demonstrates atrial fibrillation, anterior septal infarct, prolonged QT interval, ST-T-wave abnormality, consider lateral ischemia. LABORATORY DATA: White blood cell count 10.44, hemoglobin is 12.5, platelet count is 130. Sodium is 141, potassium is 4.5, chloride is 108, CO2 is 25, BUN is 11, creatinine is 0.58. Phosphorus 1.8. ABG 7.36/37/119/22/99% on 40% FIO2 ventilator. Chest x-ray today demonstrates pulmonary vascular congestion, left basilar opacity. PHYSICAL EXAMINATION: VITAL SIGNS: Temperature is 35.8 degrees centigrade, pulse 70 beats per minute and irregular, respiratory rate is 24 breaths per minute, blood pressure 108/74. SaO2 98% on 30% FIO2. GENERAL: Sedated, ventilator. HEENT: OG and ET tube in place. NECK: Supple without JVD. HEART: Regular with a normal S1 and S2. No murmur, rub or gallop appreciated. ABDOMEN: Mildly distended, no rigidity, hypoactive bowel sounds noted. EXTREMITIES: Demonstrate trace pedal edema. His dorsalis pedis pulses are present by Doppler evaluation. NEUROLOGIC: Sedated. FINAL IMPRESSION: 1. A 66-year-old patient admitted with cardiac arrest, status post CPR and multiple defibrillator shocks in the field. Cardiac catheterization demonstrated no culprit artery. No intervention was performed. He has a known underlying ischemic cardiomyopathy and prior bioprosthetic aortic valve. The patient is currently under rewarming protocol. Seizure activity noted this a.m. and has been treated with anti-epileptic therapy. Neurology is currently following. 2. Chronic persistent atrial fibrillation -- rate-controlled, patient was not anticoagulated prior to admission due to medication nonadherence. Currently, on heparin infusion. 3. History of bioprosthetic aortic valve replacement in 2010 secondary to bicuspid aortic valve and severe aortic insufficiency. 4. Seizure activity, rule out anoxic brain injury. PLAN AND RECOMMENDATIONS: Intravenous heparin will be continued due to the history of atrial fibrillation with evidence of ventricular arrhythmias and cardiac arrest, recommend continue intravenous amiodarone as well. His rewarming protocol will be monitored by the certified personal finance counselor team. Electrolytes will be replaced as needed. Neurology is following as well. Ongoing assessment of his neurologic status. I will continue to follow during hospitalization.
[2016-09-22] MEDS: FENTANYL 1250MCG/250ML NSS 250 ML IV PRN (16:49)
--- NOTE | 2016-09-22 16:49 | Progress Note ---
Progress Note Date of Service: Sep 22, 2016. Subjective: 66-year-old male status post cardiac arrest with cardiac upon resuscitation and the fibrillation in the field, now in the rewarming phase post therapeutic hypothermia. Unfortunately, this morning the patient developed seizure activity. Upon my examination this afternoon, the patient was noted to have rapid bilateral vertical eye movements followed by tremors she is a like activity of the upper and lower extremities bilaterally. He had been seen by neurology earlier today and started on Keppra and Depakote. Remains on multiple IV infusions including amiodarone, percent, heparin, Depakote, and fentanyl. On the monitor, he is a rate controlled atrial fibrillation. He had a cardiac catheterization which revealed no coronary artery disease. His primary management is by the critical care team. We continue to follow pending hopeful transfer out of the unit. Review of Systems General Appearance: other (unresponsive) Constitutional: denies: fever All Other Systems: due to patient addition, review of systems largely unable to obtain. Vital Signs Past 8 Hours: Last 8 Hrs Date Time Temp Pulse Resp B/P Pulse Ox O2 Delivery O2 Flow Rate FiO2 09/22/16 15:00 35.6 81 24 113/57 99 Mechanical Ventilator 107/71 09/22/16 14:40 30 09/22/16 14:00 35.3 76 26 111/66 98 Mechanical Ventilator 101/68 09/22/16 13:00 35.2 70 26 109/61 98 Mechanical Ventilator 108/70 09/22/16 12:00 35.8 71 24 120/71 98 Mechanical Ventilator 108/74 09/22/16 12:00 100 Mechanical Ventilator 30 09/22/16 12:00 30 09/22/16 11:30 30 09/22/16 11:00 36.0 68 24 93/49 100 Mechanical Ventilator 87/50 09/22/16 10:00 36.1 84 24 112/59 100 Mechanical Ventilator 95/70 09/22/16 09:00 35.7 71 24 98/62 100 Mechanical Ventilator 94/72 Physical Exam General Appearance: other (intubated, unresponsive) Eye Exam: bilateral eye abnormal EOM, bilateral eye abnormal pupil (pinpoint) Ears, Nose, Throat: other (intubated) Neck: trachea midline Respiratory: lungs clear, normal breath sounds, other (on mechanical ventilation) Cardiovascular: no edema, irregularly irregular Gastrointestinal: soft Extremities: no pedal edema Neurologic/Psychiatric: other (unresponsive) Medications Medications: Current Inpatient Medications Medications (Trade) Dose Ordered Sig/Christina Route Start Time Stop Time Status Last Admin Dose Admin Artificial Tears 1 appln 1 appln Q2H PRN OPB 09/20/16 17:00 10/20/16 16:59 09/21/16 11:26 1 APPLN Pantoprazole Sodium 40 mg/ Syringe 10 ml @ 5 mls/min DAILY@11 IV 09/21/16 11:00 10/21/16 10:59 09/22/16 11:04 5 MLS/MIN Midazolam HCl (Midazolam 125MG/ 250ML D5w) 250 ml @ 0 mls/hr Q0M PRN IV 09/20/16 16:57 10/20/16 16:56 09/22/16 11:24 16 MLS/HR Meperidine HCl 25 mg 25 mg Q2H PRN IV 09/20/16 17:00 10/04/16 16:59 09/22/16 12:23 25 MG Fentanyl Citrate 250 ml @ 0 mls/hr Q0M PRN IV 09/20/16 16:57 10/04/16 16:56 Amiodarone HCL/ Dextrose 200 ml @ 16.7 mls/hr [id number] IV 09/20/16 23:15 10/20/16 23:14 09/22/16 06:13 16.7 MLS/HR Norepinephrine Bitartrate 8 mg/ Dextrose 508 ml @ 0 mls/hr Q0M PRN IV 09/20/16 17:30 10/20/16 17:29 09/22/16 11:30 39.8 MLS/HR Cisatracurium Besylate/Sodium Chloride (Nimbex INJ/Nss 100ml) 100 ml @ 0 mls/hr Q0M PRN IV 09/20/16 17:45 10/20/16 17:44 09/22/16 02:15 11.9 MLS/HR Miscellaneous Information ( [facility] Electrolyte Replacement Protocol) 1 ea per protocol PRN N/A 09/20/16 17:30 09/27/16 17:29 Glucose (Glucose 40% Gel) 15-30 GRAMS 15 GRAMS... UD PRN PO 09/20/16 18:00 10/20/16 17:59 Glucose (Glucose Chew Tab) 4-8 Tablets 4 Tabl... UD PRN PO 09/20/16 18:00 10/20/16 17:59 Dextrose (Dextrose 50% 50ML Syringe) 25-50ML OF 50% DW IV FOR... UD PRN IV 09/20/16 18:00 10/20/16 17:59 Glucagon 1 mg 1 mg UD PRN SQ 09/20/16 18:00 10/20/16 17:59 Heparin Sodium/ Dextrose (Heparin 25,000 Unit/500ml D5W) 500 ml @ 18 mls/hr Q24H PRN IV 09/20/16 20:45 10/20/16 20:44 09/21/16 21:20 18 MLS/HR Enteral Nutritional Formula (Peptamen Intense VHP) 1,000 ml UD OG 09/21/16 09:00 10/21/16 08:59 09/21/16 11:07 1,000 ML Heparin Sodium (Porcine) (Heparin 10 Unit/ ml 5 ml Flush) 5 ml PRN PRN FLUSH 09/21/16 01:15 10/21/16 01:14 Buspirone HCl (BusPAR TAB) 60 mg ONE PRN NG 09/22/16 10:00 10/22/16 09:59 Acetaminophen (Tylenol Supp) 650 mg ONE PRN OH 09/22/16 10:00 10/22/16 09:59 Albumin Human 12.5 gm 12.5 gm Q1H IV 09/22/16 22:00 09/23/16 01:01 Valproate Sodium 250 mg/Dextrose 52.5 ml @ 55 mls/hr Q6 IV 09/22/16 12:00 10/22/16 11:59 09/22/16 11:32 55 MLS/HR Sodium Phosphate/ Sodium Chloride (Sodium Phosphate Inj/Nss 500ml) 507 ml @ 144.857 mls/hr TODAY@1330 ONCE IV 09/22/16 13:30 09/22/16 16:59 09/22/16 13:46 144.857 MLS/HR Laboratory Data Laboratory Data: Results Past 24 Hours Test 09/21/16 17:12 09/21/16 18:13 09/21/16 19:19 09/21/16 20:00 Range/Units Bedside Glucose (other) 126 124 124 70-99 mg/dl White Blood Count 15.60 4.8-10.8 K/uL Red Blood Count 4.71 4.7-6.1 M/uL Hemoglobin 15.5 14.0-18.0 g/dL Hematocrit 42.4 42-52 % Mean Corpuscular Volume 90.0 80-100 fL Mean Corpuscular Hemoglobin 32.9 25-34 pg Mean Corpuscular Hemoglobin Concent 36.6 32-36 g/dl Platelet Count 156 130-400 K/uL Mean Platelet Volume 9.1 7.4-10.4 fL Neutrophils (%) (Auto) 85.3 % Lymphocytes (%) (Auto) 7.1 % Monocytes (%) (Auto) 6.9 % Eosinophils (%) (Auto) 0.2 % Basophils (%) (Auto) 0.1 % Neutrophils # (Auto) 13.33 1.4-6.5 K/uL Lymphocytes # (Auto) 1.10 1.2-3.4 K/uL Monocytes # (Auto) 1.07 0.11-0.59 K/uL Eosinophils # (Auto) 0.03 0-0.5 K/uL Basophils # (Auto) 0.01 0-0.2 K/uL RDW Standard Deviation 43.5 36.4-46.3 fL RDW Coefficient of Variation 13.2 11.5-14.5 % Immature Granulocyte % (Auto) 0.4 % Immature Granulocyte # (Auto) 0.06 0.00-0.02 K/uL Prothrombin Time 12.3 9.0-12.0 SECONDS Prothromb Time International Ratio 1.1 0.9-1.1 Activated Partial Thromboplast Time 92.4 21.0-31.0 SECONDS Partial Thromboplastin Ratio 3.6 Sodium Level 142 136-145 mmol/L Potassium Level 4.2 3.5-5.1 mmol/L Chloride Level 110 98-107 mmol/L Carbon Dioxide Level 23 21-32 mmol/L Anion Gap 9.0 3-11 mmol/L Blood Urea Nitrogen 11 7-18 mg/dl Creatinine 0.45 0.60-1.40 mg/dl Est Creatinine Clear Calc Drug Dose 202.8 ml/min Estimated GFR () 137.6 Estimated GFR (Non- 118.8 BUN/Creatinine Ratio 24.9 10-20 Random Glucose 125 70-99 mg/dl Calcium Level 7.3 8.5-10.1 mg/dl Phosphorus Level 2.0 2.5-4.9 mg/dl Magnesium Level 2.0 1.8-2.4 mg/dl Test 09/21/16 20:09 09/21/16 20:17 09/21/16 21:36 09/21/16 23:55 Range/Units Blood Gas Sample Site Art Line Bedside Blood Gas pH (LAB) 7.37 7.35-7.45 Bedside Blood Gas pCO2 (LAB) 36 35-46 mmHg Bedside Blood Gas pO2 (LAB) 97 80-95 mmHg Bedside Blood Gas HCO3 (LAB) 22 19-24 meq/L Bedside Blood Gas Total CO2 23 24-31 mEq/l Bedside Blood Gas Base Excess (LAB) -4.0 -9-1.8 meq/L Bedside Blood Gas O2 Saturation 98.0 90-95 % Augustine Test NA Oxygen Delivery Device Ventilator Bedside Oxygen Rate (breaths/min) 24 Blood Gas Minute Ventilation 12.5 Bedside FiO2 40 % Blood Gas Tidal Volume 550 Blood Gas PEEP 10 Bedside Glucose (other) 127 116 70-99 mg/dl White Blood Count 13.55 4.8-10.8 K/uL Red Blood Count 4.35 4.7-6.1 M/uL Hemoglobin 14.2 14.0-18.0 g/dL Hematocrit 39.3 42-52 % Mean Corpuscular Volume 90.3 80-100 fL Mean Corpuscular Hemoglobin 32.6 25-34 pg Mean Corpuscular Hemoglobin Concent 36.1 32-36 g/dl Platelet Count 142 130-400 K/uL Mean Platelet Volume 9.6 7.4-10.4 fL Neutrophils (%) (Auto) 83.0 % Lymphocytes (%) (Auto) 8.6 % Monocytes (%) (Auto) 8.0 % Eosinophils (%) (Auto) 0.1 % Basophils (%) (Auto) 0.1 % Neutrophils # (Auto) 11.24 1.4-6.5 K/uL Lymphocytes # (Auto) 1.16 1.2-3.4 K/uL Monocytes # (Auto) 1.09 0.11-0.59 K/uL Eosinophils # (Auto) 0.02 0-0.5 K/uL Basophils # (Auto) 0.01 0-0.2 K/uL RDW Standard Deviation 44.0 36.4-46.3 fL RDW Coefficient of Variation 13.4 11.5-14.5 % Immature Granulocyte % (Auto) 0.2 % Immature Granulocyte # (Auto) 0.03 0.00-0.02 K/uL Sodium Level 142 136-145 mmol/L Potassium Level 4.5 3.5-5.1 mmol/L Chloride Level 108 98-107 mmol/L Carbon Dioxide Level 22 21-32 mmol/L Anion Gap 12.0 3-11 mmol/L Blood Urea Nitrogen 11 7-18 mg/dl Creatinine 0.45 0.60-1.40 mg/dl Est Creatinine Clear Calc Drug Dose 202.8 ml/min Estimated GFR () 137.6 Estimated GFR (Non- 118.8 BUN/Creatinine Ratio 24.9 10-20 Random Glucose 113 70-99 mg/dl Calcium Level 7.4 8.5-10.1 mg/dl Phosphorus Level 3.4 2.5-4.9 mg/dl Magnesium Level 1.9 1.8-2.4 mg/dl Test 09/22/16 00:07 09/22/16 02:04 09/22/16 04:03 09/22/16 04:04 Range/Units Bedside Glucose (other) 114 70-99 mg/dl Bedside Glucose 102 70-99 mg/dl Blood Gas Sample Site Art Line Bedside Blood Gas pH (LAB) 7.36 7.35-7.45 Bedside Blood Gas pCO2 (LAB) 37 35-46 mmHg Bedside Blood Gas pO2 (LAB) 119 80-95 mmHg Bedside Blood Gas HCO3 (LAB) 22 19-24 meq/L Bedside Blood Gas Total CO2 23 24-31 mEq/l Bedside Blood Gas Base Excess (LAB) -4.0 -9-1.8 meq/L Bedside Blood Gas O2 Saturation 99.0 90-95 % Augustine Test NA Oxygen Delivery Device Ventilator Bedside Oxygen Rate (breaths/min) 24 Blood Gas Minute Ventilation 12.5 Bedside FiO2 40 % Blood Gas Tidal Volume 550 Blood Gas PEEP 10 White Blood Count 11.65 4.8-10.8 K/uL Red Blood Count 4.30 4.7-6.1 M/uL Hemoglobin 14.1 14.0-18.0 g/dL Hematocrit 39.0 42-52 % Mean Corpuscular Volume 90.7 80-100 fL Mean Corpuscular Hemoglobin 32.8 25-34 pg Mean Corpuscular Hemoglobin Concent 36.2 32-36 g/dl Platelet Count 137 130-400 K/uL Mean Platelet Volume 9.5 7.4-10.4 fL Neutrophils (%) (Auto) 82.2 % Lymphocytes (%) (Auto) 9.3 % Monocytes (%) (Auto) 7.8 % Eosinophils (%) (Auto) 0.3 % Basophils (%) (Auto) 0.1 % Neutrophils # (Auto) 9.57 1.4-6.5 K/uL Lymphocytes # (Auto) 1.08 1.2-3.4 K/uL Monocytes # (Auto) 0.91 0.11-0.59 K/uL Eosinophils # (Auto) 0.04 0-0.5 K/uL Basophils # (Auto) 0.01 0-0.2 K/uL RDW Standard Deviation 44.9 36.4-46.3 fL RDW Coefficient of Variation 13.7 11.5-14.5 % Immature Granulocyte % (Auto) 0.3 % Immature Granulocyte # (Auto) 0.04 0.00-0.02 K/uL Red Blood Cell Morphology Unremarkable Prothrombin Time 12.1 9.0-12.0 SECONDS Prothromb Time International Ratio 1.1 0.9-1.1 Activated Partial Thromboplast Time 63.6 21.0-31.0 SECONDS Partial Thromboplastin Ratio 2.4 Sodium Level 142 136-145 mmol/L Potassium Level 4.6 3.5-5.1 mmol/L Chloride Level 110 98-107 mmol/L Carbon Dioxide Level 23 21-32 mmol/L Anion Gap 9.0 3-11 mmol/L Blood Urea Nitrogen 11 7-18 mg/dl Creatinine 0.43 0.60-1.40 mg/dl Est Creatinine Clear Calc Drug Dose 212.3 ml/min Estimated GFR () 140.2 Estimated GFR (Non- 121.0 BUN/Creatinine Ratio 25.7 10-20 Random Glucose 112 70-99 mg/dl Calcium Level 7.3 8.5-10.1 mg/dl Phosphorus Level 2.3 2.5-4.9 mg/dl Magnesium Level 2.0 1.8-2.4 mg/dl Total Bilirubin 0.5 0.2-1 mg/dl Direct Bilirubin 0.2 0-0.2 mg/dl Aspartate Amino Transf (AST/SGOT) 61 15-37 U/L Alanine Aminotransferase (ALT/SGPT) 47 12-78 U/L Alkaline Phosphatase 37 45-117 U/L Total Protein 6.2 6.4-8.2 gm/dl Albumin 3.7 3.4-5.0 gm/dl Test 09/22/16 04:09 09/22/16 07:47 09/22/16 08:40 09/22/16 10:53 Range/Units Bedside Glucose 105 110 70-99 mg/dl White Blood Count 10.44 4.8-10.8 K/uL Red Blood Count 3.94 4.7-6.1 M/uL Hemoglobin 12.5 14.0-18.0 g/dL Hematocrit 35.5 42-52 % Mean Corpuscular Volume 90.1 80-100 fL Mean Corpuscular Hemoglobin 31.7 25-34 pg Mean Corpuscular Hemoglobin Concent 35.2 32-36 g/dl Platelet Count 130 130-400 K/uL Mean Platelet Volume 9.2 7.4-10.4 fL Neutrophils (%) (Auto) 85.7 % Lymphocytes (%) (Auto) 6.9 % Monocytes (%) (Auto) 7.0 % Eosinophils (%) (Auto) 0.2 % Basophils (%) (Auto) 0.0 % Neutrophils # (Auto) 8.95 1.4-6.5 K/uL Lymphocytes # (Auto) 0.72 1.2-3.4 K/uL Monocytes # (Auto) 0.73 0.11-0.59 K/uL Eosinophils # (Auto) 0.02 0-0.5 K/uL Basophils # (Auto) 0.00 0-0.2 K/uL RDW Standard Deviation 45.3 36.4-46.3 fL RDW Coefficient of Variation 13.7 11.5-14.5 % Immature Granulocyte % (Auto) 0.2 % Immature Granulocyte # (Auto) 0.02 0.00-0.02 K/uL Prothrombin Time 12.1 9.0-12.0 SECONDS Prothromb Time International Ratio 1.1 0.9-1.1 Activated Partial Thromboplast Time 54.6 21.0-31.0 SECONDS Partial Thromboplastin Ratio 2.1 Sodium Level 141 136-145 mmol/L Potassium Level 4.5 3.5-5.1 mmol/L Chloride Level 108 98-107 mmol/L Carbon Dioxide Level 25 21-32 mmol/L Anion Gap 8.0 3-11 mmol/L Blood Urea Nitrogen 11 7-18 mg/dl Creatinine 0.58 0.60-1.40 mg/dl Est Creatinine Clear Calc Drug Dose 157.4 ml/min Estimated GFR () 124.0 Estimated GFR (Non- 107.0 BUN/Creatinine Ratio 18.4 10-20 Random Glucose 134 70-99 mg/dl Calcium Level 7.4 8.5-10.1 mg/dl Phosphorus Level 1.8 2.5-4.9 mg/dl Magnesium Level 1.9 1.8-2.4 mg/dl Lactic Acid Level 3.2 0.4-2.0 mmol/L Test 09/22/16 11:48 09/22/16 15:28 09/22/16 16:00 09/22/16 16:07 Range/Units Bedside Glucose 109 113 70-99 mg/dl Assessment and Plan Cardiac arrest, status post cardiopulmonary resuscitation with defibrillation in the field with therapeutic hypothermia in the emergency department Now and rewarming phase but unfortunate complicated by onset of seizures, neurology consultation appreciated. Remains in a rate controlled atrial fibrillation,. Cardiology is following. Primary care by the critical care team. Hyperglycemia Insulin IV aim 140-180 Hypokalemia / hypophosphatemia Replacements as per ICU protocol Lines - Marie urine cath - left subclavian central venous catheter - left arterial line - PIV 2 - OG + ET tube VTE and GI Prophylaxis - heparin drip - Protonix IV Code - Full Disposition Continued ICU stay due to intubated and mechanically ventilated. The primary care will continue to follow to distance to assume primary care should the patient improve to the point where he can be discharged from the ICU.
[2016-09-22] MEDS ORDERED: VALPROATE SOD IV 500 MG in DEXTROSE 5% 50ML 50 ML IV ONE (17:15)
[2016-09-22] MEDS ORDERED: LEVETIRACTAM 1000 MG in DEXTROSE 5% 100ML IV SCH (19:45)
[2016-09-22] MEDS ORDERED: LEVETIRACETAM IV 500 MG in DEXTROSE 5% 100ML 100 ML IV SCH (21:00)
[2016-09-23] VITALS (40 sets, daily range): BP systolic 90–124; BP diastolic 65–77; PULSE 60–83; TEMP 36.2–37.7; O2SAT 94–100
[2016-09-23] MEDS: ALBUMIN HUMAN 25% 12.5 GM/50 ML VIAL IV SCH ×3 (01:57→02:34)
[2016-09-23] MEDS: VALPROATE SOD IV 250 MG in DEXTROSE 5% 50ML 50 ML IV SCH ×4 (01:57→17:58)
[2016-09-23] MEDS: LEVETIRACTAM 500 MG in DEXTROSE 5% 100ML IV SCH ×3 (02:36→15:01)
[2016-09-23] MEDS: NOREPINEPHRINE BIT INJ 8 MG in DEXTROSE 5% 500ML 500 ML IV PRN (03:42)
[2016-09-23 04:16] LABS: BASO % 0.2 %; BASO ABS # 0.02 K/uL (0-0.2); COMPLETE YES; EOS % 0.6 %; HEMATOCRIT 30.2 % (42-52); IG% 0.2 %; LYMPH % 17.9 %; LYMPH ABS # 1.72 K/uL (1.2-3.4); MEAN CELL VOLUME 90.1 fL (80-100); MEAN CORPUSCULAR HGB CONC 34.4 g/dl (32-36); MEAN PLATELET VOLUME 9.1 fL (7.4-10.4); MONO % 8.8 %; NEUT % 72.3 %; PLATELET COUNT 120 K/uL (130-400); RED BLOOD COUNT 3.35 M/uL (4.7-6.1)
[2016-09-23 04:36] LABS: CALCIUM 7.6 mg/dl (8.5-10.1); CREATININE 0.72 mg/dl (0.60-1.40); MAGNESIUM 1.9 mg/dl (1.8-2.4); POTASSIUM 3.7 mmol/L (3.5-5.1)
[2016-09-23 04:37] LABS: ALB/GLOB RATIO 1.7 (0.9-2); PHOSPHORUS 1.7 mg/dl (2.5-4.9)
[2016-09-23] MEDS: AMIODARONE / D5W 200 ML IV SCH ×2 (04:48→17:20)
--- NOTE | 2016-09-23 06:36 | DIAGNOSTIC IMAGING REPORT ---
CT HEAD WITHOUT CONTRAST (CT) CLINICAL HISTORY: Change in mental status. Cardiac arrest. COMPARISON STUDY: 09/20/2016 TECHNIQUE: Axial CT of the brain is performed from the vertex to the skull base. IV contrast was not administered for this examination. CT DOSE: 614.27 mGy.cm FINDINGS: No intra or extra-axial mass lesions are visualized. There is no CT evidence of acute cortical infarction. There is no evidence of midline shift. There is no acute hemorrhage. No calvarial fractures are visualized. There is no evidence of pathologic ventricular dilatation. There is a trace left maxillary sinus air-fluid level. IMPRESSION: No acute intracranial findings Electronically signed by: Cuong Hart M.D. 09/23/2016 6:34 AM Dictated Date/Time: 09/23/2016 6:33 AM
--- NOTE | 2016-09-23 07:18 | DIAGNOSTIC IMAGING REPORT ---
CHEST ONE VIEW PORTABLE CLINICAL HISTORY: Respiratory failure COMPARISON STUDY: 09/22/2016 FINDINGS: The heart remains enlarged. There is a left subclavian central venous catheter unchanged in position. There is an endotracheal tube 62 mm above the ethan. There is mild mediastinal widening. There is radiographic evidence of mild congestive failure/fluid overload. There is no lobar consolidation. Bibasilar airspace opacities likely reflect focal edema/atelectasis although an inflammatory process could appear similar.[ IMPRESSION: Cardiomegaly and stable pulmonary vascular congestion. Endotracheal tube 62 mm above the ethan Electronically signed by: Cuong Hart M.D. 09/23/2016 7:17 AM Dictated Date/Time: 09/23/2016 7:15 AM
[2016-09-23] MEDS: PANTOprazole INJ 40 MG in SYRINGE 0 ML IV SCH (07:30)
[2016-09-23 08:17] LABS: PARTIAL THROMBOPLASTIN RATIO 1.6
--- NOTE | 2016-09-23 08:58 | Neurology Progress Notes ---
Neurology Progress Note Date of Service Sep 23, 2016. Subjective Yesterday afternoon, the patient was having additional seizures. He was loaded with Keppra and has been on alternating doses of Keppra and Depakote since. Depakote level was 92 this morning. CBC showed mild anemia and chem profile was largely unremarkable although the calcium and fossa levels were low. Yesterday, CT scan of the head showed no acute changes. Chest x-ray today shows some pulmonary vascular congestion but this is stable compared to yesterday. EEG yesterday showed moderate generalized slowing without potentially epileptogenic activity. Another EEG will be obtained today. Nursing reports no significant seizure activity since he was loaded with Keppra and has been on both anticonvulsants overnight. However, he has had intermittent eye twitching movements with the eyelids and some roving movements of the eyes. He has some twitching of the musculature in his legs as well. Additional history was obtained from the patient's daughter who is present at bedside. She was present at the time of this event when he was in the office with a hot man. The patient stopped talking and was slumped backwards into his chair with some nonspecific moaning and difficulty breathing and vacant gaze. He then went into a generalized body stiffening lasting up to a couple minutes was some tongue biting but no incontinence. There was no clonic activity. She did not see the patient again as she was escorted out of the room because EMS personnel arrived. Objective Date Time Temp Pulse Resp B/P Pulse Ox O2 Delivery O2 Flow Rate FiO2 09/23/16 08:00 30 09/23/16 08:00 97 Mechanical Ventilator 30 09/23/16 08:00 30 09/23/16 05:17 30 09/23/16 04:00 30 09/23/16 04:00 97 Mechanical Ventilator 30 09/23/16 01:45 30 09/22/16 23:59 97 Mechanical Ventilator 30 09/22/16 23:59 30 09/22/16 23:47 30 09/22/16 22:00 30 09/22/16 20:00 30 09/22/16 20:00 100 Mechanical Ventilator 30 09/22/16 19:43 30 09/22/16 17:06 30 09/22/16 17:00 36.3 75 24 113/76 99 Mechanical Ventilator 109/79 09/22/16 16:00 30 09/22/16 16:00 100 Mechanical Ventilator 30 09/22/16 16:00 36.0 79 24 103/64 99 Mechanical Ventilator 109/71 09/22/16 15:00 35.6 81 24 113/57 99 Mechanical Ventilator 107/71 09/22/16 14:40 30 09/22/16 14:00 35.3 76 26 111/66 98 Mechanical Ventilator 101/68 09/22/16 13:00 35.2 70 26 109/61 98 Mechanical Ventilator 108/70 09/22/16 12:00 35.8 71 24 120/71 98 Mechanical Ventilator 108/74 09/22/16 12:00 100 Mechanical Ventilator 30 09/22/16 12:00 30 09/22/16 11:30 30 09/22/16 11:00 36.0 68 24 93/49 100 Mechanical Ventilator 87/50 09/22/16 10:00 36.1 84 24 112/59 100 Mechanical Ventilator 95/70 09/22/16 09:00 35.7 71 24 98/62 100 Mechanical Ventilator 94/72 Last 24 Hours Test 09/22/16 10:53 09/22/16 11:48 09/22/16 15:28 09/22/16 16:07 Lactic Acid Level 3.2 mmol/L Bedside Glucose 109 mg/dl 113 mg/dl Valproic Acid (Depakene) Level 74 mcg/ml Test 09/22/16 16:41 09/22/16 23:56 09/23/16 04:06 09/23/16 07:54 Lactic Acid Level 2.8 mmol/L 2.0 mmol/L 1.5 mmol/L 1.4 mmol/L White Blood Count 9.60 K/uL Red Blood Count 3.35 M/uL Hemoglobin 10.4 g/dL Hematocrit 30.2 % Mean Corpuscular Volume 90.1 fL Mean Corpuscular Hemoglobin 31.0 pg Mean Corpuscular Hemoglobin Concent 34.4 g/dl Platelet Count 120 K/uL Mean Platelet Volume 9.1 fL Neutrophils (%) (Auto) 72.3 % Lymphocytes (%) (Auto) 17.9 % Monocytes (%) (Auto) 8.8 % Eosinophils (%) (Auto) 0.6 % Basophils (%) (Auto) 0.2 % Neutrophils # (Auto) 6.94 K/uL Lymphocytes # (Auto) 1.72 K/uL Monocytes # (Auto) 0.84 K/uL Eosinophils # (Auto) 0.06 K/uL Basophils # (Auto) 0.02 K/uL RDW Standard Deviation 46.0 fL RDW Coefficient of Variation 13.9 % Immature Granulocyte % (Auto) 0.2 % Immature Granulocyte # (Auto) 0.02 K/uL Sodium Level 142 mmol/L Potassium Level 3.7 mmol/L Chloride Level 108 mmol/L Carbon Dioxide Level 27 mmol/L Anion Gap 7.0 mmol/L Blood Urea Nitrogen 9 mg/dl Creatinine 0.72 mg/dl Est Creatinine Clear Calc Drug Dose 126.8 ml/min Estimated GFR () 113.5 Estimated GFR (Non- 97.9 BUN/Creatinine Ratio 12.0 Random Glucose 134 mg/dl Calcium Level 7.6 mg/dl Phosphorus Level 1.7 mg/dl Magnesium Level 1.9 mg/dl Total Bilirubin 0.5 mg/dl Aspartate Amino Transf (AST/SGOT) 44 U/L Alanine Aminotransferase (ALT/SGPT) 33 U/L Alkaline Phosphatase 29 U/L Total Protein 6.0 gm/dl Albumin 3.8 gm/dl Globulin 2.2 gm/dl Albumin/Globulin Ratio 1.7 Valproic Acid (Depakene) Level 92 mcg/ml Activated Partial Thromboplast Time 40.6 SECONDS Partial Thromboplastin Ratio 1.6 Imaging: CT HEAD WITHOUT CONTRAST (CT) CLINICAL HISTORY: Change in mental status. Cardiac arrest. COMPARISON STUDY: 09/20/2016 TECHNIQUE: Axial CT of the brain is performed from the vertex to the skull base. IV contrast was not administered for this examination. CT DOSE: 614.27 mGy.cm FINDINGS: No intra or extra-axial mass lesions are visualized. There is no CT evidence of acute cortical infarction. There is no evidence of midline shift. There is no acute hemorrhage. No calvarial fractures are visualized. There is no evidence of pathologic ventricular dilatation. There is a trace left maxillary sinus air-fluid level. IMPRESSION: No acute intracranial findings Electronically signed by: Cuong Hart M.D. Exam: He is lying in bed without significant spontaneous movement. He is not breathing over the ventilator. There is no response to loud clap or loud voice. Eyes (passively and eyes are front. He does have some occasional very fine roving movements of the eyes. He has some twitching of the eyelids when the eyes are held open also. I believe he has a positive (albeit weak) corneal response bilaterally. Pupils are 3 mm and react. With passive movement of the head, the neck is supple, but there are no significant oculocephalic movements ( no "doll's eyes"). The patient is intubated and has a positive cough to suctioning. He does not have a positive gag. There is significant decreased tone in both arms and the left leg. The right leg has mild increased tone. He has no withdrawal to deep pain in the arms. He has minimal withdrawal to deep pain in both legs. Toes are equivocal to upgoing on the left and upgoing on the right to plantar stimulation Current Inpatient Medications Medications (Trade) Dose Ordered Sig/Christina Route Start Time Stop Time Status Last Admin Dose Admin Artificial Tears 1 appln 1 appln Q2H PRN OPB 09/20/16 17:00 10/20/16 16:59 09/21/16 11:26 1 APPLN Pantoprazole Sodium 40 mg/ Syringe 10 ml @ 5 mls/min DAILY@11 IV 09/21/16 11:00 10/21/16 10:59 09/23/16 07:30 5 MLS/MIN Midazolam HCl (Midazolam 125MG/ 250ML D5w) 250 ml @ 0 mls/hr Q0M PRN IV 09/20/16 16:57 10/20/16 16:56 09/22/16 23:11 24 MLS/HR Meperidine HCl 25 mg 25 mg Q2H PRN IV 09/20/16 17:00 10/04/16 16:59 09/22/16 12:23 25 MG Fentanyl Citrate 250 ml @ 0 mls/hr Q0M PRN IV 09/20/16 16:57 10/04/16 16:56 09/22/16 16:49 5 MLS/HR Amiodarone HCL/ Dextrose 200 ml @ 16.7 mls/hr [id number] IV 09/20/16 23:15 10/20/16 23:14 09/23/16 04:48 16.7 MLS/HR Norepinephrine Bitartrate 8 mg/ Dextrose 508 ml @ 0 mls/hr Q0M PRN IV 09/20/16 17:30 10/20/16 17:29 09/23/16 03:42 31.8 MLS/HR Cisatracurium Besylate/Sodium Chloride (Nimbex INJ/Nss 100ml) 100 ml @ 0 mls/hr Q0M PRN IV 09/20/16 17:45 10/20/16 17:44 09/22/16 02:15 11.9 MLS/HR Miscellaneous Information ( [facility] Electrolyte Replacement Protocol) 1 ea per protocol PRN N/A 09/20/16 17:30 09/27/16 17:29 Glucose (Glucose 40% Gel) 15-30 GRAMS 15 GRAMS... UD PRN PO 09/20/16 18:00 10/20/16 17:59 Glucose (Glucose Chew Tab) 4-8 Tablets 4 Tabl... UD PRN PO 09/20/16 18:00 10/20/16 17:59 Dextrose (Dextrose 50% 50ML Syringe) 25-50ML OF 50% DW IV FOR... UD PRN IV 09/20/16 18:00 10/20/16 17:59 Glucagon 1 mg 1 mg UD PRN SQ 09/20/16 18:00 10/20/16 17:59 Heparin Sodium/ Dextrose (Heparin 25,000 Unit/500ml D5W) 500 ml @ 18 mls/hr Q24H PRN IV 09/20/16 20:45 10/20/16 20:44 09/21/16 21:20 18 MLS/HR Enteral Nutritional Formula (Peptamen Intense VHP) 1,000 ml UD OG 09/21/16 09:00 10/21/16 08:59 09/21/16 11:07 1,000 ML Heparin Sodium (Porcine) (Heparin 10 Unit/ ml 5 ml Flush) 5 ml PRN PRN FLUSH 09/21/16 01:15 10/21/16 01:14 Buspirone HCl (BusPAR TAB) 60 mg ONE PRN NG 09/22/16 10:00 10/22/16 09:59 Acetaminophen 650 mg 650 mg ONE PRN FL 09/22/16 10:00 10/22/16 09:59 Valproate Sodium 250 mg/Dextrose 52.5 ml @ 55 mls/hr Q6 IV 09/22/16 12:00 10/22/16 11:59 09/23/16 06:00 55 MLS/HR Levetiracetam/ Dextrose (Keppra Iv/D5 100ml) 105 ml @ 420 mls/hr Q6@0300,0900,1500,2100 IV 09/23/16 03:00 10/23/16 02:59 09/23/16 07:30 420 MLS/HR Impression 1. Cardiac arrest September 20, likely secondary to ventricular arrhythmia. The events of that day, from the daughter who was a witness, suggests to me that he had syncope first followed by a secondary generalized tonic event. He went through post-arrest cooling protocol with typical neuromuscular blockers and Versed. Early yesterday morning, while going through the rewarming phase, he was noted to have significant, frequent seizure activity. Neurologic examination today is largely unchanged compared to yesterday although he is somewhat less reactive to deep pain today. I suspect a significant global hypoxic injury to the central nervous system, but it is too early to tell how extensive is the damage. The unremarkable CT scan of the head yesterday does not include significant [employer] damage. Prognosis is still quite guarded. 2. Frequent, significant bilateral bilateral seizure activity yesterday . Overnight he has not had any of the obvious seizures but he does have some intermittent eye movements and intermittent muscular twitching of his limbs, legs greater than arms. This activity the eyes and legs may be seizure activity, and I certainly cannot exclude subclinical seizures, but it may be some myoclonus and other abnormal movement activity from the hypoxic injury. He is on IV Depakote and Keppra currently. Depakote level was good at 92 this morning. Plan 1. Continue Depakote 250 mg IV every 6 hours 2. Continue Keppra 500 mg every 6 hours for now This dose may be lowered in the next day or 2 depending on his clinical course. 3. EEG this morning 4. MRI of the brain when practical/able I spoke with Dr. Rowe regarding differential diagnosis and treatment options , and I will follow. I also spent 30 minutes, additionally, speaking with the patient's 3 daughters and significant other regarding his case including prognosis.
[2016-09-23] MEDS ORDERED: HEPARIN IV BOLUS 7,000 UNIT in SYRINGE 0 ML IV ONE (10:00)
--- NOTE | 2016-09-23 10:51 | EEG Procedure Note ---
EEG Procedure Note Date of Service Sep 23, 2016. Start / End Times Start Time: 1000 End Time: [address] Rowe History 66 year old post cardiac arrest with seizure activity Home Medication List Scheduled Aspirin (Aspirin Tab-Chewable *), 81 MG PO DAILY Inpatient Medication List Current Inpatient Medications Medications (Trade) Dose Ordered Sig/Christina Route Start Time Stop Time Status Last Admin Dose Admin Artificial Tears 1 appln 1 appln Q2H PRN OPB 09/20/16 17:00 10/20/16 16:59 09/21/16 11:26 1 APPLN Pantoprazole Sodium 40 mg/ Syringe 10 ml @ 5 mls/min DAILY@11 IV 09/21/16 11:00 10/21/16 10:59 09/23/16 07:30 5 MLS/MIN Midazolam HCl (Midazolam 125MG/ 250ML D5w) 250 ml @ 0 mls/hr Q0M PRN IV 09/20/16 16:57 10/20/16 16:56 09/22/16 23:11 24 MLS/HR Meperidine HCl 25 mg 25 mg Q2H PRN IV 09/20/16 17:00 10/04/16 16:59 09/22/16 12:23 25 MG Fentanyl Citrate 250 ml @ 0 mls/hr Q0M PRN IV 09/20/16 16:57 10/04/16 16:56 09/22/16 16:49 5 MLS/HR Amiodarone HCL/ Dextrose 200 ml @ 16.7 mls/hr [id number] IV 09/20/16 23:15 10/20/16 23:14 09/23/16 04:48 16.7 MLS/HR Norepinephrine Bitartrate 8 mg/ Dextrose 508 ml @ 0 mls/hr Q0M PRN IV 09/20/16 17:30 10/20/16 17:29 09/23/16 03:42 31.8 MLS/HR Cisatracurium Besylate/Sodium Chloride (Nimbex INJ/Nss 100ml) 100 ml @ 0 mls/hr Q0M PRN IV 09/20/16 17:45 10/20/16 17:44 09/22/16 02:15 11.9 MLS/HR Miscellaneous Information ( [facility] Electrolyte Replacement Protocol) 1 ea per protocol PRN N/A 09/20/16 17:30 09/27/16 17:29 Glucose (Glucose 40% Gel) 15-30 GRAMS 15 GRAMS... UD PRN PO 09/20/16 18:00 10/20/16 17:59 Glucose (Glucose Chew Tab) 4-8 Tablets 4 Tabl... UD PRN PO 09/20/16 18:00 10/20/16 17:59 Dextrose (Dextrose 50% 50ML Syringe) 25-50ML OF 50% DW IV FOR... UD PRN IV 09/20/16 18:00 10/20/16 17:59 Glucagon 1 mg 1 mg UD PRN SQ 09/20/16 18:00 10/20/16 17:59 Heparin Sodium/ Dextrose (Heparin 25,000 Unit/500ml D5W) 500 ml @ 25 mls/hr Q20H PRN IV 09/20/16 20:45 10/20/16 20:44 09/21/16 21:20 18 MLS/HR Enteral Nutritional Formula (Peptamen Intense VHP) 1,000 ml UD OG 09/21/16 09:00 10/21/16 08:59 09/21/16 11:07 1,000 ML Heparin Sodium (Porcine) (Heparin 10 Unit/ ml 5 ml Flush) 5 ml PRN PRN FLUSH 09/21/16 01:15 10/21/16 01:14 Buspirone HCl (BusPAR TAB) 60 mg ONE PRN NG 09/22/16 10:00 10/22/16 09:59 Acetaminophen 650 mg 650 mg ONE PRN MD 09/22/16 10:00 10/22/16 09:59 Valproate Sodium 250 mg/Dextrose 52.5 ml @ 55 mls/hr Q6 IV 09/22/16 12:00 10/22/16 11:59 09/23/16 06:00 55 MLS/HR Levetiracetam/ Dextrose (Keppra Iv/D5 100ml) 105 ml @ 420 mls/hr Q6@0300,0900,1500,2100 IV 09/23/16 03:00 10/23/16 02:59 09/23/16 07:30 420 MLS/HR Description This is a 21 electrode EEG with a single channel dedicated to limited EKG. The electrodes were placed in accordance with the International 10-20 system. Interpretation The predominant background activity consists of an irregular 4-6 Hz activity, of variable amplitude, up to 50microvoltsin amplitude seen in all head regions. This activity did not attenuate with alerting procedures. Photic stimulation was not performed. Throughout this recording was the presence of sharp waves, and even a few spike and wave forms, seen emanating from the bifrontal head regions. This activity was frequent and occasionally occurred as irregular isolated sharp waves, and at times was regular at 2-3 Hz for 5-6 seconds. The patient had eyelid twitching and eye roving movements noted during this. In summary, this is an abnormal EEG and shows a moderate general slowing of the background and frequent bifrontal potentially epileptogenic and epileptogenic discharges Clinical Correlation The general slowing is consistent with his significant encephalopathy. There is seizure activity recorded, bifrontally maximal
[2016-09-23] MEDS ORDERED: POTASSIUM PHOS 3 MMOL/1 ML INFUSION IV STA (11:08)
[2016-09-23] MEDS ORDERED: NURSING VERBAL MED ORDER ONE ×4 (11:15→20:45)
[2016-09-23] MEDS ORDERED: CYANOCOBALAMIN 1000 MCG/ML VIAL IM ONE (11:30)
[2016-09-23] MEDS ORDERED: MAGNESIUM SULFATE 1GM / D5W 1 GM in PREMIXED IN D5W 100 ML IV ONE (11:30)
[2016-09-23] MEDS ORDERED: VALPROATE SOD IV 500 MG in DEXTROSE 5% 50ML 50 ML IV ONE (11:30)
[2016-09-23] MEDS ORDERED: THIAMINE HCL 100 MG/ML 2 ML VIAL IM ONE (11:30)
--- NOTE | 2016-09-23 11:47 | Cardiology Follow-Up ---
Subjective General Date of Service: Sep 23, 2016. Chief Complaint: follow up cardiac arrest, cardiomyopathy Pt evaluation today including: conversation w/ patient, physical exam, chart review, lab review, review of studies, review of inpatient medication list History of Present Illness The patient is a 66 year old male seen in follow up. Remains sedated ion ventilator. +seizure activity on EEG. Anti-epileptic medications managed by Neurology. 5 beat nimco of NSVT on monitor, otherwise rate controlled AF. IV heparin and amiodarone infusing. Allergies Coded Allergies: No Known Allergies (Unverified , NONE, 09/20/16) Social History Smoking Status: Former Smoker Review of Systems Respiratory: + cough (reported by RN with deep suction) Physical Exam Vital Signs Last Vital Signs Documentation Date Time Temp Pulse Resp B/P Pulse Ox O2 Delivery O2 Flow Rate FiO2 09/23/16 11:20 30 09/23/16 11:00 37.5 76 24 111/65 100 123/75 09/23/16 08:00 Mechanical Ventilator Physical Exam Constitutional: Level of Distress: NAD Head: normocephalic Neck: supple Lungs: Auscultation: no wheezing, no rales/crackles Cardiovascular: Heart Auscultation: RRR, no murmurs, bradycardia, irregular rate rhythm Peripheral Pulses: Radial Pulse: normal on the left (+ arterial line), normal on the right Abdomen: Bowel Sounds: diminished Inspection & Palpation: non-distended Extremities: no edema Neurologic: Gait & Station: pertinent finding (fine eye 'twiches' ) Assessment and Plan Assessment and Plan FINAL IMPRESSION: 1. Cardiac arrest secondary to ventricular dysrhythmia, status post CPR and multiple defibrillator shocks in the field. -Cardiac catheterization demonstrated mild nonobstructive CAD. -known underlying nonischemic cardiomyopathy and prior bioprosthetic aortic valve replacement. -s/p "code arctic" and rewarming with persistent seizure activity 2. Chronic atrial fibrillation - rate-controlled on IV heparin and amiodarone - previously not anticoagulated due to medication nonadherence. 3. History of bioprosthetic aortic valve replacement in 2010 secondary to bicuspid aortic valve and severe aortic insufficiency. 4. Seizure activity - antiepileptic medication on board - Neurology following PLAN AND RECOMMENDATIONS: No medication changes from a cardiovascular perspective. No further cardiac testing today. Prognosis appears guarded from a neurology perspective. Laboratory Results Last 24 Hours Test 09/22/16 11:48 09/22/16 15:28 09/22/16 16:07 09/22/16 16:41 Bedside Glucose 109 mg/dl 113 mg/dl Valproic Acid (Depakene) Level 74 mcg/ml Lactic Acid Level 2.8 mmol/L Test 09/22/16 23:56 09/23/16 04:06 09/23/16 07:54 09/23/16 11:02 Lactic Acid Level 2.0 mmol/L 1.5 mmol/L 1.4 mmol/L White Blood Count 9.60 K/uL Red Blood Count 3.35 M/uL Hemoglobin 10.4 g/dL Hematocrit 30.2 % Mean Corpuscular Volume 90.1 fL Mean Corpuscular Hemoglobin 31.0 pg Mean Corpuscular Hemoglobin Concent 34.4 g/dl Platelet Count 120 K/uL Mean Platelet Volume 9.1 fL Neutrophils (%) (Auto) 72.3 % Lymphocytes (%) (Auto) 17.9 % Monocytes (%) (Auto) 8.8 % Eosinophils (%) (Auto) 0.6 % Basophils (%) (Auto) 0.2 % Neutrophils # (Auto) 6.94 K/uL Lymphocytes # (Auto) 1.72 K/uL Monocytes # (Auto) 0.84 K/uL Eosinophils # (Auto) 0.06 K/uL Basophils # (Auto) 0.02 K/uL RDW Standard Deviation 46.0 fL RDW Coefficient of Variation 13.9 % Immature Granulocyte % (Auto) 0.2 % Immature Granulocyte # (Auto) 0.02 K/uL Sodium Level 142 mmol/L Potassium Level 3.7 mmol/L Chloride Level 108 mmol/L Carbon Dioxide Level 27 mmol/L Anion Gap 7.0 mmol/L Blood Urea Nitrogen 9 mg/dl Creatinine 0.72 mg/dl Est Creatinine Clear Calc Drug Dose 126.8 ml/min Estimated GFR () 113.5 Estimated GFR (Non- 97.9 BUN/Creatinine Ratio 12.0 Random Glucose 134 mg/dl Calcium Level 7.6 mg/dl Phosphorus Level 1.7 mg/dl Magnesium Level 1.9 mg/dl Total Bilirubin 0.5 mg/dl Aspartate Amino Transf (AST/SGOT) 44 U/L Alanine Aminotransferase (ALT/SGPT) 33 U/L Alkaline Phosphatase 29 U/L Total Protein 6.0 gm/dl Albumin 3.8 gm/dl Globulin 2.2 gm/dl Albumin/Globulin Ratio 1.7 Valproic Acid (Depakene) Level 92 mcg/ml Activated Partial Thromboplast Time 40.6 SECONDS Partial Thromboplastin Ratio 1.6
[2016-09-23] MEDS ORDERED: POTASSIUM PHOSPHATE INJ 21 MMOL in SODIUM CHLORIDE 0.9% 500ML 500 ML IV ONE (12:00)
--- NOTE | 2016-09-23 12:40 | Progress Note ---
Progress Note Date of Service: Sep 23, 2016. Subjective: 66-year-old male status post cardiac arrest with field cardiopulmonary resuscitation and defibrillation, subsequently placed in therapeutic hypothermia protocol, now in rewarming phase but unfortunately has developed seizure activity. The patient's family had a meeting today with the senior account director and neurologist to review the patient's condition and current care. At the time of my examination, there was no family present in the room. Review of Systems General Appearance: other (unresponsive) Constitutional: denies: fever EENTM: acknowledges: no symptoms reported Respiratory: positive: no symptoms reported (unable to obtain) Cardiovascular: reports no symptoms reported (unable to obtain) Skin: negative: change in color, lesions Neurological/Psych: positive: other (unresponsive; seizure activity noted) Vital Signs Past 8 Hours: Last 8 Hrs Date Time Temp Pulse Resp B/P Pulse Ox O2 Delivery O2 Flow Rate FiO2 09/23/16 12:00 30 09/23/16 12:00 36.2 83 28 113/70 98 111/68 09/23/16 12:00 99 Mechanical Ventilator 30 09/23/16 11:20 30 09/23/16 11:00 37.5 76 24 111/65 100 123/75 09/23/16 10:45 37.5 71 24 100 123/74 09/23/16 10:30 37.4 71 24 98 124/75 09/23/16 10:30 37.4 71 24 98 124/75 09/23/16 10:15 37.4 72 24 100 119/71 09/23/16 10:00 37.4 68 24 113/65 100 124/74 09/23/16 09:45 37.4 64 24 100 120/72 09/23/16 09:30 37.4 73 24 100 115/72 09/23/16 09:15 37.4 69 24 100 117/72 09/23/16 09:00 37.4 76 24 117/67 100 119/75 09/23/16 08:45 37.4 81 29 100 121/77 09/23/16 08:30 37.4 71 24 100 118/73 09/23/16 08:15 37.4 65 24 97 115/69 09/23/16 08:00 37.4 72 24 99/69 100 112/70 09/23/16 08:00 30 09/23/16 08:00 97 Mechanical Ventilator 30 09/23/16 08:00 30 09/23/16 05:17 30 Physical Exam General Appearance: other (unresponsive on ventilator; pupils are pinpoint bilaterally with subtle vertical fasciculations) Neck: trachea midline Respiratory: lungs clear Cardiovascular: irregularly irregular Gastrointestinal: soft Extremities: no pedal edema Neurologic/Psychiatric: other (unresponsive with seizure activity) Skin Characteristics: normal color, warm/dry Medications Medications: Current Inpatient Medications Medications (Trade) Dose Ordered Sig/Christina Route Start Time Stop Time Status Last Admin Dose Admin Artificial Tears 1 appln 1 appln Q2H PRN OPB 09/20/16 17:00 10/20/16 16:59 09/21/16 11:26 1 APPLN Pantoprazole Sodium 40 mg/ Syringe 10 ml @ 5 mls/min DAILY@11 IV 09/21/16 11:00 10/21/16 10:59 09/23/16 07:30 5 MLS/MIN Midazolam HCl (Midazolam 125MG/ 250ML D5w) 250 ml @ 0 mls/hr Q0M PRN IV 09/20/16 16:57 10/20/16 16:56 09/22/16 23:11 24 MLS/HR Meperidine HCl 25 mg 25 mg Q2H PRN IV 09/20/16 17:00 10/04/16 16:59 09/22/16 12:23 25 MG Fentanyl Citrate 250 ml @ 0 mls/hr Q0M PRN IV 09/20/16 16:57 10/04/16 16:56 09/22/16 16:49 5 MLS/HR Amiodarone HCL/ Dextrose 200 ml @ 16.7 mls/hr [id number] IV 09/20/16 23:15 10/20/16 23:14 09/23/16 04:48 16.7 MLS/HR Norepinephrine Bitartrate 8 mg/ Dextrose 508 ml @ 0 mls/hr Q0M PRN IV 09/20/16 17:30 10/20/16 17:29 09/23/16 03:42 31.8 MLS/HR Cisatracurium Besylate/Sodium Chloride (Nimbex INJ/Nss 100ml) 100 ml @ 0 mls/hr Q0M PRN IV 09/20/16 17:45 10/20/16 17:44 09/22/16 02:15 11.9 MLS/HR Miscellaneous Information ( Icu Electrolyte Replacement Protocol) 1 ea per protocol PRN N/A 09/20/16 17:30 09/27/16 17:29 Glucose (Glucose 40% Gel) 15-30 GRAMS 15 GRAMS... UD PRN PO 09/20/16 18:00 10/20/16 17:59 Glucose (Glucose Chew Tab) 4-8 Tablets 4 Tabl... UD PRN PO 09/20/16 18:00 10/20/16 17:59 Dextrose (Dextrose 50% 50ML Syringe) 25-50ML OF 50% DW IV FOR... UD PRN IV 09/20/16 18:00 10/20/16 17:59 Glucagon 1 mg 1 mg UD PRN SQ 09/20/16 18:00 10/20/16 17:59 Heparin Sodium/ Dextrose (Heparin 25,000 Unit/500ml D5W) 500 ml @ 25 mls/hr Q20H PRN IV 09/20/16 20:45 10/20/16 20:44 09/21/16 21:20 18 MLS/HR Enteral Nutritional Formula (Peptamen Intense VHP) 1,000 ml UD OG 09/21/16 09:00 10/21/16 08:59 09/21/16 11:07 1,000 ML Heparin Sodium (Porcine) (Heparin 10 Unit/ ml 5 ml Flush) 5 ml PRN PRN FLUSH 09/21/16 01:15 10/21/16 01:14 Buspirone HCl (BusPAR TAB) 60 mg ONE PRN NG 09/22/16 10:00 10/22/16 09:59 Acetaminophen 650 mg 650 mg ONE PRN ID 09/22/16 10:00 10/22/16 09:59 09/23/16 11:54 650 MG Valproate Sodium 250 mg/Dextrose 52.5 ml @ 55 mls/hr Q6 IV 09/22/16 12:00 10/22/16 11:59 09/23/16 06:00 55 MLS/HR Levetiracetam/ Dextrose (Keppra Iv/D5 100ml) 105 ml @ 420 mls/hr Q6@0300,0900,1500,2100 IV 09/23/16 03:00 10/23/16 02:59 09/23/16 07:30 420 MLS/HR Thiamine HCl (Vitamin B-1 Inj) 100 mg QAM IM 09/24/16 09:00 09/28/16 08:59 Cyanocobalamin 1000 mcg 1,000 mcg DAILY IM 09/24/16 09:00 09/27/16 08:59 Valproate Sodium 500 mg/Dextrose 55 ml @ 55 mls/hr 1130 ONCE IV 09/23/16 11:30 09/23/16 12:29 09/23/16 11:41 55 MLS/HR Magnesium Sulfate 1 gm/Prmx 100 ml @ 100 mls/hr 1130 ONCE IV 09/23/16 11:30 09/23/16 12:29 09/23/16 11:41 100 MLS/HR Potassium Phosphate/Sodium Chloride (Potassium Phosphate Inj/Nss 500ml) 507 ml @ 144.857 mls/hr TODAY@1200 ONCE IV 09/23/16 12:00 09/23/16 15:29 09/23/16 11:41 144.857 MLS/HR Laboratory Data Laboratory Data: Last 24 Hours Test 09/22/16 15:28 09/22/16 16:07 09/22/16 16:41 09/22/16 23:56 Valproic Acid (Depakene) Level 74 mcg/ml Bedside Glucose 113 mg/dl Lactic Acid Level 2.8 mmol/L 2.0 mmol/L Test 09/23/16 04:06 09/23/16 07:54 09/23/16 11:45 White Blood Count 9.60 K/uL Red Blood Count 3.35 M/uL Hemoglobin 10.4 g/dL Hematocrit 30.2 % Mean Corpuscular Volume 90.1 fL Mean Corpuscular Hemoglobin 31.0 pg Mean Corpuscular Hemoglobin Concent 34.4 g/dl Platelet Count 120 K/uL Mean Platelet Volume 9.1 fL Neutrophils (%) (Auto) 72.3 % Lymphocytes (%) (Auto) 17.9 % Monocytes (%) (Auto) 8.8 % Eosinophils (%) (Auto) 0.6 % Basophils (%) (Auto) 0.2 % Neutrophils # (Auto) 6.94 K/uL Lymphocytes # (Auto) 1.72 K/uL Monocytes # (Auto) 0.84 K/uL Eosinophils # (Auto) 0.06 K/uL Basophils # (Auto) 0.02 K/uL RDW Standard Deviation 46.0 fL RDW Coefficient of Variation 13.9 % Immature Granulocyte % (Auto) 0.2 % Immature Granulocyte # (Auto) 0.02 K/uL Sodium Level 142 mmol/L Potassium Level 3.7 mmol/L Chloride Level 108 mmol/L Carbon Dioxide Level 27 mmol/L Anion Gap 7.0 mmol/L Blood Urea Nitrogen 9 mg/dl Creatinine 0.72 mg/dl Est Creatinine Clear Calc Drug Dose 126.8 ml/min Estimated GFR () 113.5 Estimated GFR (Non- 97.9 BUN/Creatinine Ratio 12.0 Random Glucose 134 mg/dl Lactic Acid Level 1.5 mmol/L 1.4 mmol/L 1.4 mmol/L Calcium Level 7.6 mg/dl Phosphorus Level 1.7 mg/dl Magnesium Level 1.9 mg/dl Total Bilirubin 0.5 mg/dl Aspartate Amino Transf (AST/SGOT) 44 U/L Alanine Aminotransferase (ALT/SGPT) 33 U/L Alkaline Phosphatase 29 U/L Total Protein 6.0 gm/dl Albumin 3.8 gm/dl Globulin 2.2 gm/dl Albumin/Globulin Ratio 1.7 Valproic Acid (Depakene) Level 92 mcg/ml Activated Partial Thromboplast Time 40.6 SECONDS Partial Thromboplastin Ratio 1.6 Assessment and Plan Cardiac arrest, status post cardiopulmonary resuscitation with defibrillation in the field with therapeutic hypothermia in the emergency department Now and rewarming phase but unfortunate complicated by onset of seizures, neurology consultation appreciated. Unfortunately seizure activity continues from yesterday and an EEG completed this morning was consistent with generalized encephalopathy. He is on Keppra and Depakote managed by neurology. Chronic atrial fibrillation Remains in a rate controlled atrial fibrillation Currently on IV heparin and amiodarone. Cardiology is following. Hyperglycemia Insulin IV aim 140-180 Hypokalemia / hypophosphatemia Replacements as per ICU protocol Lines - Marie urine cath - left subclavian central venous catheter - left arterial line - PIV 2 - OG + ET tube VTE and GI Prophylaxis - heparin drip - Protonix IV Code - Full Disposition Continued ICU stay due to intubated and mechanically ventilated. The primary care will continue to follow to distance to assume primary care should the patient improve to the point where he can be discharged from the ICU.
--- NOTE | 2016-09-23 12:59 | Critical Care Progress Note ---
Critical Care Progress Note Date of Service Sep 23, 2016. ICU Day ICU Day Number: [address] Rowe Subjective Rewarming protocol completed Patient sedated; unable to obtain interval history from the patient Per nursing, continued to have breakthrough seizures yesterday Objective Constitutional: Vital signs review below Eyes: Pupils equal, round, and reactive to light. Extraocular muscles are intact. No proptosis. No photophobia. ENT: Mucous membranes are moist. Oropharynx is clear. No sinus tenderness. TMs are clear bilaterally. ET tube in place Cardiovascular: Heart with a regular rate and rhythm. Pulses are palpable and symmetric in all 4 extremities. No pedal edema appreciated. Respiratory: Lungs clear to auscultation bilaterally. No wheezes, rales, or rhonchi appreciated. No accessory muscle use. No retractions. No increased work of breathing. On mechanical ventilation GI: Abdomen soft, nontender, nondistended. Normal active bowel sounds. No abdominal hernias appreciated. No rebound. No guarding. : No CVA tenderness appreciated. Musculoskeletal: No midline cervical or vertebral tenderness. No gross deformities. No bony tenderness. No calf swelling or tenderness. Integumentary: Warm, dry, no rashes appreciated. Sternal abrasion palomino; CURLY compression site IV access sites intact without evidence of infection Neurological: RASS -4 No active seizure activity noted at the bedside Lymph: No cervical lymphadenopathy appreciated. Assessment & Plan 66 year old male, day 3 of ICU admission, admitted for out-of hospital Vfib arrest. Rewarming protocol has been completed but complicated by new onset seizure-like activity. Weaning sedation has been delayed as a result. There is concern that this may been secondary to brain anoxia during initial arrest. Problem list includes: - Seizure activity - S/p V. fib arrest - S/p aortic valve replacement/bicuspid aortic valve - Acute congestive heart failure with reduce EF 20-25% - Thoracic aortic aneurysm stable - Paroxysmal atrial fibrillation Our plan for him is as follows: NEUROLOGICAL - GCS: 3 - RASS -4 - Anoxic encephalopathy: as noted on EEG - Discussion in room with Dr. Jae Yang and myself to discuss uncertain prognosis at this time - Patient continues to be on sedatives which complicates pictures of neurological status; will wean as fast as possible without allowing for breakthrough seizures - Further observation recommended at this time to project prognosis for return to baseline neurological status - New onset seizure activity - Concern for anoxic etiology - Neurology following: EEG showing generalized slowing with maximally frontally - CT brain reported as negative; MRI would be the ideal study but requires mechanical support making this impossible at this time; will do later time - Continue Depakote plus Keppra - Sedation: Decreased Versed to 4 mg/hr - RASS goal today; -1 - Pain regimen: Fentanyl 25 mcg/hr Demerol 25 mg q 2 hours CARDIAC - BP: MAP >= on vasopressors - Vasopressor support: Levofed @ 0.08 mcg/kg/hr, titrate to MAP >= 65 - IV Fluids: none - Day 2 s/p cardiac catheterization with clean coronaries - Cardiology consulted - Status Post-Vfib arrest; day 1 s/p therapeutic hypothermia protocol, rewarming completed - Acute Systolic CHF with reduced EF - EF 20-25%; on pressors; hold antihypertensives at this point - History of Paroxysmal Atrial Fibrillation - Currently rate controlled atrial fibrillation - Continue Heparin infusion; previous history of outpatient non-compliance on anticoagulatio - Continue Amiodarone infusion RESPIRATORY - Continues to require mechanical ventilation; maintaining spO2 at 98% on FiO2 30% - Repeat ABG today GASTROINTESTINAL - Diet: tube feeds have been discontinued in light of continued seizure activity Will add in nutritional supplementation: Thiamin x 5 days; B12 x 3 days - GI Prophylaxis: Protonix 40 mg QD - Bowel regimen: No BM yet since admission; will continue to follow No evidence of bowel obstruction RENAL//ENDOCRINE - Fluid Balance +4400 yesterday +7300 ml globally - Follow urine output: At goal so far today at 0.53 ml/kg/hr - Cr: Her 0.72, increased slightly from 0.58 - Electrolytes: Hypophosphatemia: 1.7, 21 mmol KPhos Borderline Hypomagnesemia: 1 g Mag sulfate IV - IV Fluids: Globally positive; multiple IV medications; Hold additional maintenance fluids - Goal Fluid Balance: Net Even - BSG: Good control, 110-120s Continue Insulin infusion per protocol q4h Acuchecks - Concern for adrenal insufficiently: will check a random cortisol level HEME/INFECTIOUS DISEASE - Tmax: 37.4 WBC: 9.6, stable - Hb/Hct 10.4/30/2; slightly reduced from 12.5/35 yesterday but possible dilutional effect from IV fluids - Plt; 120, stable - Lactate improved to 1.4 and remains stable - DVT Prophylaxis IV Heparin infusion LINES/IV ACCESS - Peripheral IV access: right hand - Left subclavian central line CODE STATUS - Full Code DISPOSITION - OT/PT: Sedation so cannot participate now, but will benefit from evaluation eventually - Requires ICU stay for rewarming hypothermia protocol, continuous IV sedation, and cardiac monitoring Resident Physician Supervision Note: Dr. Blount was resident physician during care of patient. I separately evaluated patient and did history and exam. I discussed the case with the resident and generally agree with the findings and plan. Discussed extensively with the family in the presence of Dr. Mooney, poor prognostic indicator includes probable seizure, he is continuing to seize through to antiepileptics. Dr. Mooney is attempting to achieve suppression with antiepileptic medications. We will wean liver set as tolerated. Continue to monitor for rebound hyperthermia. I have personally spent 50 minutes of critical care time in the direct management of this patient. This is a life/limb threatening event. This includes time spent evaluating patient, direct bedside care, chart review, placing orders, interpretation of diagnostic studies, discussion with consultants, patient, and family members, as well as other required patient management activities. This time is exclusive of all separately billable procedures, and teaching time and separate from and in addition to any other critical care service time. Documented By: Danielito Rowe DO Consults & Procedures Consultants: Cardiology Procedures: CVC, see separate procedure note Arterial Line placement, see separate procedure note Data Medications: Current Inpatient Medications Medications (Trade) Dose Ordered Sig/Christina Route Start Time Stop Time Status Last Admin Dose Admin Artificial Tears 1 appln 1 appln Q2H PRN OPB 09/20/16 17:00 10/20/16 16:59 09/21/16 11:26 1 APPLN Pantoprazole Sodium 40 mg/ Syringe 10 ml @ 5 mls/min DAILY@11 IV 09/21/16 11:00 10/21/16 10:59 09/23/16 07:30 5 MLS/MIN Midazolam HCl (Midazolam 125MG/ 250ML D5w) 250 ml @ 0 mls/hr Q0M PRN IV 09/20/16 16:57 10/20/16 16:56 09/22/16 23:11 24 MLS/HR Meperidine HCl 25 mg 25 mg Q2H PRN IV 09/20/16 17:00 10/04/16 16:59 09/22/16 12:23 25 MG Fentanyl Citrate 250 ml @ 0 mls/hr Q0M PRN IV 09/20/16 16:57 10/04/16 16:56 09/22/16 16:49 5 MLS/HR Amiodarone HCL/ Dextrose 200 ml @ 16.7 mls/hr [id number] IV 09/20/16 23:15 10/20/16 23:14 09/23/16 04:48 16.7 MLS/HR Norepinephrine Bitartrate 8 mg/ Dextrose 508 ml @ 0 mls/hr Q0M PRN IV 09/20/16 17:30 10/20/16 17:29 09/23/16 03:42 31.8 MLS/HR Cisatracurium Besylate/Sodium Chloride (Nimbex INJ/Nss 100ml) 100 ml @ 0 mls/hr Q0M PRN IV 09/20/16 17:45 10/20/16 17:44 09/22/16 02:15 11.9 MLS/HR Miscellaneous Information ( Icu Electrolyte Replacement Protocol) 1 ea per protocol PRN N/A 09/20/16 17:30 09/27/16 17:29 Glucose (Glucose 40% Gel) 15-30 GRAMS 15 GRAMS... UD PRN PO 09/20/16 18:00 10/20/16 17:59 Glucose (Glucose Chew Tab) 4-8 Tablets 4 Tabl... UD PRN PO 09/20/16 18:00 10/20/16 17:59 Dextrose (Dextrose 50% 50ML Syringe) 25-50ML OF 50% DW IV FOR... UD PRN IV 09/20/16 18:00 10/20/16 17:59 Glucagon 1 mg 1 mg UD PRN SQ 09/20/16 18:00 10/20/16 17:59 Heparin Sodium/ Dextrose (Heparin 25,000 Unit/500ml D5W) 500 ml @ 25 mls/hr Q20H PRN IV 09/20/16 20:45 10/20/16 20:44 09/21/16 21:20 18 MLS/HR Enteral Nutritional Formula (Peptamen Intense VHP) 1,000 ml UD OG 09/21/16 09:00 10/21/16 08:59 09/21/16 11:07 1,000 ML Heparin Sodium (Porcine) (Heparin 10 Unit/ ml 5 ml Flush) 5 ml PRN PRN FLUSH 09/21/16 01:15 10/21/16 01:14 Buspirone HCl (BusPAR TAB) 60 mg ONE PRN NG 09/22/16 10:00 10/22/16 09:59 Acetaminophen 650 mg 650 mg ONE PRN KS 09/22/16 10:00 10/22/16 09:59 09/23/16 11:54 650 MG Valproate Sodium 250 mg/Dextrose 52.5 ml @ 55 mls/hr Q6 IV 09/22/16 12:00 10/22/16 11:59 09/23/16 06:00 55 MLS/HR Levetiracetam/ Dextrose (Keppra Iv/D5 100ml) 105 ml @ 420 mls/hr Q6@0300,0900,1500,2100 IV 09/23/16 03:00 10/23/16 02:59 09/23/16 07:30 420 MLS/HR Thiamine HCl (Vitamin B-1 Inj) 100 mg QAM IM 09/24/16 09:00 09/28/16 08:59 Cyanocobalamin 1000 mcg 1,000 mcg DAILY IM 09/24/16 09:00 09/27/16 08:59 Potassium Phosphate/Sodium Chloride (Potassium Phosphate Inj/Nss 500ml) 507 ml @ 144.857 mls/hr TODAY@1200 ONCE IV 09/23/16 12:00 09/23/16 15:29 09/23/16 11:41 144.857 MLS/HR I & O: 24-Hour Column 09/23/16 07:59 Intake Total 4552 ml Output Total 2174 ml Balance 2378 ml Vital Signs: Date Time Temp Pulse Resp B/P Pulse Ox O2 Delivery O2 Flow Rate FiO2 09/23/16 12:00 30 09/23/16 12:00 36.2 83 28 113/70 98 111/68 09/23/16 12:00 99 Mechanical Ventilator 30 09/23/16 11:20 30 09/23/16 11:00 37.5 76 24 111/65 100 123/75 09/23/16 10:45 37.5 71 24 100 123/74 09/23/16 10:30 37.4 71 24 98 124/75 09/23/16 10:30 37.4 71 24 98 124/75 09/23/16 10:15 37.4 72 24 100 119/71 09/23/16 10:00 37.4 68 24 113/65 100 124/74 09/23/16 09:45 37.4 64 24 100 120/72 09/23/16 09:30 37.4 73 24 100 115/72 09/23/16 09:15 37.4 69 24 100 117/72 09/23/16 09:00 37.4 76 24 117/67 100 119/75 09/23/16 08:45 37.4 81 29 100 121/77 09/23/16 08:30 37.4 71 24 100 118/73 09/23/16 08:15 37.4 65 24 97 115/69 09/23/16 08:00 37.4 72 24 99/69 100 112/70 09/23/16 08:00 30 09/23/16 08:00 97 Mechanical Ventilator 30 09/23/16 08:00 30 09/23/16 05:17 30 09/23/16 04:00 30 09/23/16 04:00 97 Mechanical Ventilator 30 09/23/16 01:45 30 09/22/16 23:59 97 Mechanical Ventilator 30 09/22/16 23:59 30 09/22/16 23:47 30 09/22/16 22:00 30 09/22/16 20:00 30 09/22/16 20:00 100 Mechanical Ventilator 30 09/22/16 19:43 30 09/22/16 17:06 30 09/22/16 17:00 36.3 75 24 113/76 99 Mechanical Ventilator 109/79 09/22/16 16:00 30 09/22/16 16:00 100 Mechanical Ventilator 30 09/22/16 16:00 36.0 79 24 103/64 99 Mechanical Ventilator 109/71 09/22/16 15:00 35.6 81 24 113/57 99 Mechanical Ventilator 107/71 09/22/16 14:40 30 09/22/16 14:00 35.3 76 26 111/66 98 Mechanical Ventilator 101/68 09/22/16 13:00 35.2 70 26 109/61 98 Mechanical Ventilator 108/70 Laboratory Results: Last 24 Hours Test 09/22/16 15:28 09/22/16 16:07 09/22/16 16:41 09/22/16 23:56 Valproic Acid (Depakene) Level 74 mcg/ml Bedside Glucose 113 mg/dl Lactic Acid Level 2.8 mmol/L 2.0 mmol/L Test 09/23/16 04:06 09/23/16 07:54 09/23/16 11:45 White Blood Count 9.60 K/uL Red Blood Count 3.35 M/uL Hemoglobin 10.4 g/dL Hematocrit 30.2 % Mean Corpuscular Volume 90.1 fL Mean Corpuscular Hemoglobin 31.0 pg Mean Corpuscular Hemoglobin Concent 34.4 g/dl Platelet Count 120 K/uL Mean Platelet Volume 9.1 fL Neutrophils (%) (Auto) 72.3 % Lymphocytes (%) (Auto) 17.9 % Monocytes (%) (Auto) 8.8 % Eosinophils (%) (Auto) 0.6 % Basophils (%) (Auto) 0.2 % Neutrophils # (Auto) 6.94 K/uL Lymphocytes # (Auto) 1.72 K/uL Monocytes # (Auto) 0.84 K/uL Eosinophils # (Auto) 0.06 K/uL Basophils # (Auto) 0.02 K/uL RDW Standard Deviation 46.0 fL RDW Coefficient of Variation 13.9 % Immature Granulocyte % (Auto) 0.2 % Immature Granulocyte # (Auto) 0.02 K/uL Sodium Level 142 mmol/L Potassium Level 3.7 mmol/L Chloride Level 108 mmol/L Carbon Dioxide Level 27 mmol/L Anion Gap 7.0 mmol/L Blood Urea Nitrogen 9 mg/dl Creatinine 0.72 mg/dl Est Creatinine Clear Calc Drug Dose 126.8 ml/min Estimated GFR () 113.5 Estimated GFR (Non- 97.9 BUN/Creatinine Ratio 12.0 Random Glucose 134 mg/dl Lactic Acid Level 1.5 mmol/L 1.4 mmol/L 1.4 mmol/L Calcium Level 7.6 mg/dl Phosphorus Level 1.7 mg/dl Magnesium Level 1.9 mg/dl Total Bilirubin 0.5 mg/dl Aspartate Amino Transf (AST/SGOT) 44 U/L Alanine Aminotransferase (ALT/SGPT) 33 U/L Alkaline Phosphatase 29 U/L Total Protein 6.0 gm/dl Albumin 3.8 gm/dl Globulin 2.2 gm/dl Albumin/Globulin Ratio 1.7 Valproic Acid (Depakene) Level 92 mcg/ml Activated Partial Thromboplast Time 40.6 SECONDS Partial Thromboplastin Ratio 1.6
[2016-09-23 13:37] LABS: ISTAT ARTERIAL BLOOD GAS HCO3 24 meq/L (19-24); ISTAT ARTERIAL BLOOD GAS PCO2 35 mmHg (35-46); ISTAT ARTERIAL BLOOD GAS PO2 67 mmHg (80-95); ISTAT ARTERIAL BLOOD GAS pH 7.44 (7.35-7.45); ISTAT CARBON DIOXIDE 25 mEq/l (24-31); ISTAT DELIVERY SYSTEM Ventilator; ISTAT FIO2 30 %; ISTAT PEEP 10; ISTAT RATE 24; ISTAT SITE Art Line; VE 13.2; Vt 550
[2016-09-23] MEDS ORDERED: LORAZEPAM 2 MG/ML 1 ML VIAL ONE ×3 (14:57→19:01)
[2016-09-23] MEDS ORDERED: LEVETIRACTAM 500 MG in DEXTROSE 5% 100ML IV ONE ×2 (15:30→20:15)
[2016-09-23 15:35] LABS: PARTIAL THROMBOPLASTIN RATIO 3.6
[2016-09-23 15:37] LABS: BUN/CREATININE RATIO 10.3 (10-20); CALCIUM 6.8 mg/dl (8.5-10.1); CREATININE 0.64 mg/dl (0.60-1.40); POTASSIUM 3.4 mmol/L (3.5-5.1)
[2016-09-23] MEDS ORDERED: LORAZEPAM 2 MG/ML 1 ML VIAL IV STA (16:49)
[2016-09-23] MEDS ORDERED: LORAZEPAM 2 MG/ML 1 ML VIAL IV PRN (17:00)
[2016-09-23] MEDS ORDERED: CALCIUM GLUCONATE 10% 1,000 MG in SODIUM CHLORIDE 0.9% 50ML 50 ML IV ONE (17:30)
[2016-09-23] MEDS: POTASSIUM CHLR 10 MEQ / WTR 10 MEQ in PREMIXED WATER 100 ML IV SCH ×4 (17:58→22:33)
[2016-09-23] MEDS ORDERED: LEVETIRACTAM 1000 MG in DEXTROSE 5% 100ML IV ONE (20:15)
[2016-09-23] MEDS ORDERED: PHENOBARBITAL SOD IV SCH (20:45)
[2016-09-23] MEDS ORDERED: SODIUM CHLORIDE 0.9% IV SCH (20:45)
[2016-09-23] MEDS: LEVETIRACETAM IV 750 MG in DEXTROSE 5% 100ML 100 ML IV SCH (21:14)
[2016-09-23 22:25] LABS: PARTIAL THROMBOPLASTIN RATIO 1.6
[2016-09-23] MEDS: HEPARIN 25,000 UNIT/500ML D5W 500 ML IV PRN (22:45)
[2016-09-23] MEDS ORDERED: HEPARIN IV BOLUS 4,000 UNIT in SYRINGE 0 ML IV ONE (23:15)
[2016-09-24] VITALS (17 sets, daily range): BP systolic 88–123; BP diastolic 53–88; PULSE 52–82; TEMP 36–37.9; O2SAT 88–100
[2016-09-24] MEDS: VALPROATE SOD IV 250 MG in DEXTROSE 5% 50ML 50 ML IV SCH ×4 (00:48→17:51)
[2016-09-24 02:42] LABS: HYDROXYETHYLFLURAZEPAM CONF NEGATIVE NG/ML (CUTOFF=50); HYDROXYMIDAZOLAM >2000 NG/ML (CUTOFF=50); HYDROXYTRIAZOLAM CONF NEGATIVE NG/ML (CUTOFF=50); TEMAZEPAM CONF NEGATIVE NG/ML (CUTOFF=50)
[2016-09-24] MEDS: LEVETIRACETAM IV 750 MG in DEXTROSE 5% 100ML 100 ML IV SCH ×3 (02:42→14:50)
[2016-09-24] MEDS: NOREPINEPHRINE BIT INJ 8 MG in DEXTROSE 5% 500ML 500 ML IV PRN ×2 (03:01→17:53)
[2016-09-24] MEDS: AMIODARONE / D5W 200 ML IV SCH ×2 (03:50→15:47)
[2016-09-24 04:03] LABS: BASO % 0.2 %; BASO ABS # 0.02 K/uL (0-0.2); COMPLETE YES; EOS % 1.1 %; HEMATOCRIT 30.7 % (42-52); IG% 0.6 %; LYMPH % 27.5 %; LYMPH ABS # 2.55 K/uL (1.2-3.4); MEAN CELL VOLUME 91.1 fL (80-100); MEAN CORPUSCULAR HEMOGLOBIN 31.8 pg (25-34); MEAN CORPUSCULAR HGB CONC 34.9 g/dl (32-36); MEAN PLATELET VOLUME 9.3 fL (7.4-10.4); MONO % 7.8 %; NEUT % 62.8 %; PLATELET COUNT 126 K/uL (130-400); RED BLOOD COUNT 3.37 M/uL (4.7-6.1); WHITE BLOOD COUNT 9.26 K/uL (4.8-10.8)
[2016-09-24 04:28] LABS: BUN/CREATININE RATIO 10.3 (10-20); CALCIUM 8.2 mg/dl (8.5-10.1); CREATININE 0.59 mg/dl (0.60-1.40); MAGNESIUM 2.2 mg/dl (1.8-2.4); PARTIAL THROMBOPLASTIN RATIO 3.1; POTASSIUM 3.8 mmol/L (3.5-5.1)
[2016-09-24 04:29] LABS: ALB/GLOB RATIO 1.3 (0.9-2); PHOSPHORUS 1.9 mg/dl (2.5-4.9)
[2016-09-24 05:15] LABS: PHENOBARBITAL 14.9 mcg/mL (15.0-40.0)
[2016-09-24] MEDS ORDERED: POTASSIUM PHOS 3 MMOL/1 ML INFUSION IV STA (08:47)
--- NOTE | 2016-09-24 08:59 | Medical Student: [facility] ---
Med Student Progress Note Date of Service Sep 24, 2016. Subjective Pt evaluation today including: lab review, review of studies Voiding: ahmadi catheter in place Patient is a 66 year old male with PMH of aortic valve replacement, paroxysmal atrial fibrillation, and chronic systolic CHF who was brought to the ED on 09/20 for ventricular fibrillation arrest. Patient is s/p day 2 of re-warming process. According to nursing notes, patient had visible tonic contractures at 8 :15 pm last night and was given 1g IV phenobarbitol. No seizure-like activity noted since. Patient's nurse says he has minimal/if any response to painful stimuli this morning. New EEG from this morning shows moderate encephalopathy compared to Saturday. Per neurology's exam, patient is non-response to nail bed pressure. They want an MRI and to re-evaluate patient's neurological status after he is weaned off sedation. Review of Systems Notes: Patient currently intubated and sedated. Unable to interview. Objective Vital Signs Date Time Temp Pulse Resp B/P Pulse Ox O2 Delivery O2 Flow Rate FiO2 09/24/16 07:45 30 09/24/16 06:00 37.5 72 21 123/78 99 Mechanical Ventilator 30 09/24/16 04:00 37.0 58 23 110/74 98 Mechanical Ventilator 30 09/24/16 04:00 99 Mechanical Ventilator 30 09/24/16 04:00 30 09/24/16 02:00 36.8 58 23 107/78 99 Mechanical Ventilator 30 09/24/16 01:17 30 09/24/16 00:00 36.8 58 22 114/72 100 Mechanical Ventilator 30 09/23/16 23:59 30 09/23/16 23:59 99 Mechanical Ventilator 30 09/23/16 22:04 30 09/23/16 22:00 37.2 60 22 90/70 100 Mechanical Ventilator 30 09/23/16 20:00 37.2 61 22 97/73 100 Mechanical Ventilator 30 09/23/16 20:00 99 Mechanical Ventilator 30 09/23/16 20:00 30 09/23/16 19:35 30 09/23/16 17:57 30 09/23/16 17:30 37.4 65 26 100 113/69 09/23/16 17:15 37.4 61 24 100 115/70 09/23/16 17:00 37.4 69 28 117/67 100 123/74 09/23/16 16:45 37.5 65 24 99 120/71 09/23/16 16:30 37.5 60 24 99 114/68 09/23/16 16:15 37.6 70 24 100 113/70 09/23/16 16:00 30 09/23/16 16:00 97 Mechanical Ventilator 30 09/23/16 16:00 37.7 71 24 98/72 96 112/70 09/23/16 15:45 37.7 77 24 100 112/70 09/23/16 15:45 30 09/23/16 15:30 37.7 72 24 99 114/70 09/23/16 15:15 37.7 75 31 94 112/68 09/23/16 15:00 37.6 74 31 103/68 94 118/71 09/23/16 14:45 37.5 72 21 95 115/69 09/23/16 14:30 37.5 78 29 94 116/70 09/23/16 14:15 37.5 65 24 99 108/65 09/23/16 14:00 37.5 65 24 103/67 99 108/67 09/23/16 14:00 37.5 65 24 103/67 99 108/67 09/23/16 13:45 37.6 72 24 100 110/67 09/23/16 13:30 37.6 73 24 100 111/66 09/23/16 13:15 37.6 71 24 100 09/23/16 13:15 37.6 71 24 100 09/23/16 13:00 37.6 65 24 116/73 99 09/23/16 12:45 37.6 72 24 100 121/72 09/23/16 12:30 37.6 76 24 99 108/67 09/23/16 12:15 37.2 72 24 99 115/69 09/23/16 12:00 36.2 83 28 113/70 98 111/68 09/23/16 12:00 30 09/23/16 12:00 36.2 83 28 113/70 98 111/68 09/23/16 12:00 99 Mechanical Ventilator 30 09/23/16 11:20 30 09/23/16 11:00 37.5 76 24 111/65 100 123/75 09/23/16 10:45 37.5 71 24 100 123/74 09/23/16 10:30 37.4 71 24 98 124/75 09/23/16 10:30 37.4 71 24 98 124/75 09/23/16 10:15 37.4 72 24 100 119/71 09/23/16 10:00 37.4 68 24 113/65 100 124/74 09/23/16 09:45 37.4 64 24 100 120/72 09/23/16 09:30 37.4 73 24 100 115/72 09/23/16 09:15 37.4 69 24 100 117/72 09/23/16 09:00 37.4 76 24 117/67 100 119/75 09/23/16 08:45 37.4 81 29 100 121/77 Physical Exam General Appearance: + obese, + pertinent finding (intubated and sedated) Eyes: bilateral eyes abnormal pupil (pupillary response to light is sluggish bilaterally) Neck: no JVD, no carotid bruits Respiratory/Chest: + wheezing, + pertinent finding (bilaterally chest rise, mechanical ventilation with FiO2 30) Cardiovascular: + systolic murmur (3/6 BRENDON loudest at the RUSB), + irregularly irregular Abdomen: + abnormal bowel sounds (hypoactive bowel sounds), + distended Extremities: + pedal edema (2+ pretibial pitting edema) Skin: normal color, + pertinent finding (feet cool to palpitation bilaterally, red nicole on patient's chest, left arm arterial line site clean and dry, left subclavian central line site clean and dry) Laboratory Results Last 24 Hours Test 09/23/16 11:45 09/23/16 12:54 09/23/16 13:25 09/23/16 15:06 Lactic Acid Level 1.4 mmol/L 1.2 mmol/L Random Cortisol 20.68 mcg/dl Bedside Glucose (other) 108 mg/dl Blood Gas Sample Site Art Line Bedside Blood Gas pH (LAB) 7.44 Bedside Blood Gas pCO2 (LAB) 35 mmHg Bedside Blood Gas pO2 (LAB) 67 mmHg Bedside Blood Gas HCO3 (LAB) 24 meq/L Bedside Blood Gas Total CO2 25 mEq/l Bedside Blood Gas Base Excess (LAB) 0.0 meq/L Bedside Blood Gas O2 Saturation 94.0 % Augustine Test NA Oxygen Delivery Device Ventilator Bedside Oxygen Rate (breaths/min) 24 Blood Gas Minute Ventilation 13.2 Bedside FiO2 30 % Blood Gas Tidal Volume 550 Blood Gas PEEP 10 Activated Partial Thromboplast Time 93.3 SECONDS Partial Thromboplastin Ratio 3.6 Sodium Level 144 mmol/L Potassium Level 3.4 mmol/L Chloride Level 110 mmol/L Carbon Dioxide Level 25 mmol/L Anion Gap 9.0 mmol/L Blood Urea Nitrogen 7 mg/dl Creatinine 0.64 mg/dl Est Creatinine Clear Calc Drug Dose 143.3 ml/min Estimated GFR () 119.1 Estimated GFR (Non- 102.7 BUN/Creatinine Ratio 10.3 Random Glucose 159 mg/dl Calcium Level 6.8 mg/dl Valproic Acid (Depakene) Level 33 mcg/ml Test 09/23/16 16:05 09/23/16 20:02 09/23/16 22:10 09/23/16 23:56 Valproic Acid (Depakene) Level 112 mcg/ml Lactic Acid Level 1.1 mmol/L Activated Partial Thromboplast Time 42.0 SECONDS Partial Thromboplastin Ratio 1.6 Bedside Glucose (other) 100 mg/dl Test 09/24/16 03:50 09/24/16 06:19 White Blood Count 9.26 K/uL Red Blood Count 3.37 M/uL Hemoglobin 10.7 g/dL Hematocrit 30.7 % Mean Corpuscular Volume 91.1 fL Mean Corpuscular Hemoglobin 31.8 pg Mean Corpuscular Hemoglobin Concent 34.9 g/dl Platelet Count 126 K/uL Mean Platelet Volume 9.3 fL Neutrophils (%) (Auto) 62.8 % Lymphocytes (%) (Auto) 27.5 % Monocytes (%) (Auto) 7.8 % Eosinophils (%) (Auto) 1.1 % Basophils (%) (Auto) 0.2 % Neutrophils # (Auto) 5.81 K/uL Lymphocytes # (Auto) 2.55 K/uL Monocytes # (Auto) 0.72 K/uL Eosinophils # (Auto) 0.10 K/uL Basophils # (Auto) 0.02 K/uL RDW Standard Deviation 47.3 fL RDW Coefficient of Variation 14.1 % Immature Granulocyte % (Auto) 0.6 % Immature Granulocyte # (Auto) 0.06 K/uL Activated Partial Thromboplast Time 79.5 SECONDS Partial Thromboplastin Ratio 3.1 Sodium Level 143 mmol/L Potassium Level 3.8 mmol/L Chloride Level 109 mmol/L Carbon Dioxide Level 26 mmol/L Anion Gap 8.0 mmol/L Blood Urea Nitrogen 6 mg/dl Creatinine 0.59 mg/dl Est Creatinine Clear Calc Drug Dose 155.4 ml/min Estimated GFR () 123.1 Estimated GFR (Non- 106.2 BUN/Creatinine Ratio 10.3 Random Glucose 101 mg/dl Lactic Acid Level 1.0 mmol/L Calcium Level 8.2 mg/dl Phosphorus Level 1.9 mg/dl Magnesium Level 2.2 mg/dl Total Bilirubin 0.6 mg/dl Aspartate Amino Transf (AST/SGOT) 58 U/L Alanine Aminotransferase (ALT/SGPT) 32 U/L Alkaline Phosphatase 33 U/L Total Protein 5.8 gm/dl Albumin 3.3 gm/dl Globulin 2.5 gm/dl Albumin/Globulin Ratio 1.3 Valproic Acid (Depakene) Level 103 mcg/ml Phenobarbital Level 14.9 mcg/mL Bedside Glucose (other) 93 mg/dl Assessment and Plan Assessment and Plan: ASSESSMENT Patient is a 66 year old male with PMH of aortic valve replacement, paroxysmal atrial fibrillation, and chronic systolic CHF who was brought to the ED on 09/20 for ventricular fibrillation arrest. Patient is s/p day 2 of re-warming process. Patient had another seizure episode last night and is currently unresponsive to painful stimuli. PLAN 1) s/p ventricular fibrillation arrest -Day 2 s/p hypothermia protocol, rewarming completed. 2) seizure -Concern for anoxic etiology. -Continue Depakote 750mg pand Keppra 250mg. 3) systolic CHF with reduced EF -EF 20-25%, currently on pressors. -Continue to hold antihypertensive medications. 4) paroxysmal atrial fibrillation -Currently rate controlled. -Continue heparin infusion. -Continue amiodarone infusion. 5) mechanical intubation -Currently on FiO2 30%. -Continue intubation to maintain SpO2 98%. 6) diet -Tube feeds were discontinued on 09/22 due to seizure episodes. -Continue Thiamine and B12 supplementation. -Protonix 40mg q day. 7) Renal function -I/O balance was +500 ml yesterday. Cr is 0.59. 8) Access -Peripheral IV in right hand. -Left subclavian line. Continued [facility] stay due to: other (intubation and sedation, seizure-like episodes)
[2016-09-24] MEDS ORDERED: CYANOCOBALAMIN 1000 MCG/ML VIAL IM SCH (09:00)
[2016-09-24] MEDS ORDERED: THIAMINE HCL 100 MG/ML 2 ML VIAL IM SCH (09:00)
--- NOTE | 2016-09-24 09:09 | DIAGNOSTIC IMAGING REPORT ---
CHEST ONE VIEW PORTABLE CLINICAL HISTORY: reps failure dyspnea COMPARISON STUDY: 09/23/2016 FINDINGS: Endotracheal tube 2.7 cm above the ethan. Heart remains enlarged. Pulmonary vasculature remains prominent. IMPRESSION: Endotracheal tube 2.7 cm above the ethan . Unchanging prominence of the pulmonary vasculature. Electronically signed by: Onur Dennis M.D. 09/24/2016 9:08 AM Dictated Date/Time: 09/24/2016 9:04 AM
[2016-09-24] MEDS ORDERED: POTASSIUM PHOSPHATE INJ 15 MMOL in SODIUM CHLORIDE 0.9% 250ML 250 ML IV SCH (09:30)
[2016-09-24 09:35] LABS: ISTAT ARTERIAL BLOOD GAS HCO3 23 meq/L (19-24); ISTAT ARTERIAL BLOOD GAS PCO2 33 mmHg (35-46); ISTAT ARTERIAL BLOOD GAS PO2 74 mmHg (80-95); ISTAT ARTERIAL BLOOD GAS pH 7.45 (7.35-7.45); ISTAT CARBON DIOXIDE 24 mEq/l (24-31); ISTAT DELIVERY SYSTEM Ventilator; ISTAT FIO2 30 %; ISTAT PEEP 10; ISTAT RATE 22; ISTAT SITE Art Line; VE 12.1; Vt 550
--- NOTE | 2016-09-24 10:05 | EEG Procedure Note ---
EEG Procedure Note Date of Service Sep 24, 2016. Start / End Times Start Time: 7:49 AM End Time: 8:[address] Mooney History This is a 66-year-old male status post cardiac arrest, cooling protocol, and rewarming. Course complicated by likely anoxic brain injury and seizures. EEG for further evaluation of seizures Pertinent medications include Keppra 750 mg 4 times a day, valproic acid 250 mg 4 times a day, Versed, and phenobarbital Home Medication List Scheduled Aspirin (Aspirin Tab-Chewable *), 81 MG PO DAILY Inpatient Medication List Current Inpatient Medications Medications (Trade) Dose Ordered Sig/Christina Route Start Time Stop Time Status Last Admin Dose Admin Artificial Tears 1 appln 1 appln Q2H PRN OPB 09/20/16 17:00 10/20/16 16:59 09/21/16 11:26 1 APPLN Pantoprazole Sodium 40 mg/ Syringe 10 ml @ 5 mls/min DAILY@11 IV 09/21/16 11:00 10/21/16 10:59 09/23/16 07:30 5 MLS/MIN Midazolam HCl (Midazolam 125MG/ 250ML D5w) 250 ml @ 0 mls/hr Q0M PRN IV 09/20/16 16:57 10/20/16 16:56 09/22/16 23:11 24 MLS/HR Meperidine HCl 25 mg 25 mg Q2H PRN IV 09/20/16 17:00 10/04/16 16:59 09/22/16 12:23 25 MG Fentanyl Citrate 250 ml @ 0 mls/hr Q0M PRN IV 09/20/16 16:57 10/04/16 16:56 09/22/16 16:49 5 MLS/HR Amiodarone HCL/ Dextrose 200 ml @ 16.7 mls/hr [id number] IV 09/20/16 23:15 10/20/16 23:14 09/24/16 03:50 16.7 MLS/HR Norepinephrine Bitartrate/ Dextrose (Levophed Inj/ D5W 500ml) 508 ml @ 0 mls/hr Q0M PRN IV 09/20/16 17:30 10/20/16 17:29 09/24/16 03:01 20.1 MLS/HR Miscellaneous Information ( Icu Electrolyte Replacement Protocol) 1 ea per protocol PRN N/A 09/20/16 17:30 09/27/16 17:29 Glucose (Glucose 40% Gel) 15-30 GRAMS 15 GRAMS... UD PRN PO 09/20/16 18:00 10/20/16 17:59 Glucose (Glucose Chew Tab) 4-8 Tablets 4 Tabl... UD PRN PO 09/20/16 18:00 10/20/16 17:59 Dextrose (Dextrose 50% 50ML Syringe) 25-50ML OF 50% DW IV FOR... UD PRN IV 09/20/16 18:00 10/20/16 17:59 Glucagon 1 mg 1 mg UD PRN SQ 09/20/16 18:00 10/20/16 17:59 Heparin Sodium/ Dextrose (Heparin 25,000 Unit/500ml D5W) 500 ml @ 25 mls/hr Q20H PRN IV 09/20/16 20:45 10/20/16 20:44 09/23/16 22:45 20 MLS/HR Enteral Nutritional Formula (Peptamen Intense VHP) 1,000 ml UD OG 09/21/16 09:00 10/21/16 08:59 09/21/16 11:07 1,000 ML Heparin Sodium (Porcine) (Heparin 10 Unit/ ml 5 ml Flush) 5 ml PRN PRN FLUSH 09/21/16 01:15 10/21/16 01:14 Buspirone HCl (BusPAR TAB) 60 mg ONE PRN NG 09/22/16 10:00 10/22/16 09:59 Acetaminophen 650 mg 650 mg ONE PRN AR 09/22/16 10:00 10/22/16 09:59 09/23/16 11:54 650 MG Valproate Sodium/ Dextrose (Depacon Iv/D5 50ml) 52.5 ml @ 55 mls/hr Q6 IV 09/22/16 12:00 10/22/16 11:59 09/24/16 06:18 55 MLS/HR Thiamine HCl (Vitamin B-1 Inj) 100 mg QAM IM 09/24/16 09:00 09/28/16 08:59 Cyanocobalamin 1000 mcg 1,000 mcg DAILY IM 09/24/16 09:00 09/27/16 08:59 Levetiracetam 750 mg/Dextrose 107.5 ml @ 420 mls/hr Q6@0300,0900,1500,2100 IV 09/23/16 21:00 10/23/16 20:59 09/24/16 02:42 420 MLS/HR Potassium Phosphate/Sodium Chloride (Potassium Phosphate Inj/Nss 250ml) 255 ml @ 127.5 mls/ hr TODAY@0930 IV 09/24/16 09:30 09/24/16 11:29 Description This is a 21 electrode EEG with a single channel dedicated to limited EKG. The electrodes were placed in accordance with the International 10-20 system. Photic stimulation at various frequencies did not produce any abnormalities. At the start of this recording the patient was unresponsive. Background was poorly organized with no anterior to posterior gradient. Background was composed of continuous moderate amplitude predominantly 3-4 Hz delta frequencies with intermixed theta frequencies. There was occasional to frequent moderate amplitude generalized often poorly formed sharp and slow wave discharges that were often bifrontal predominant. Interpretation This is a abnormal routine EEG secondary to: 1) occasional to frequent poorly formed moderate amplitude generalized spike and slow waves with bifrontal predominance 2) moderate diffuse background disorganization and slowing There was no electrographic seizures. Clinical Correlation This EEG indicates: 1) generalized increased epileptogenic potential 2) moderate encephalopathy of nonspecific etiology. Overall this EEG appears improved compared to EEG on Saturday (which per my review had signs consistent with nonconvulsive seizures), and Saturday which showed poorly formed generalized periodic epileptiform discharges (GPEDs).
[2016-09-24] MEDS: PANTOprazole INJ 40 MG in SYRINGE 0 ML IV SCH (10:14)
--- NOTE | 2016-09-24 10:14 | Neurology Progress Notes ---
Neurology Progress Note Date of Service Sep 24, 2016. Subjective Clinical seizures improved with increased Keppra and addition of Versed and phenobarbital. The patient remains unresponsive. Nursing staff reports that he had some gag with suctioning yesterday, but no gag this morning. Patient is rewarmed. Currently on Keppra 750 mg 4 times a day, valproic acid 250 mg 4 times a day with a level of 103 yesterday, Versed, and phenobarbital Objective Date Time Temp Pulse Resp B/P Pulse Ox O2 Delivery O2 Flow Rate FiO2 09/24/16 07:45 30 09/24/16 06:00 37.5 72 21 123/78 99 Mechanical Ventilator 30 09/24/16 04:00 37.0 58 23 110/74 98 Mechanical Ventilator 30 09/24/16 04:00 99 Mechanical Ventilator 30 09/24/16 04:00 30 09/24/16 02:00 36.8 58 23 107/78 99 Mechanical Ventilator 30 09/24/16 01:17 30 09/24/16 00:00 36.8 58 22 114/72 100 Mechanical Ventilator 30 09/23/16 23:59 30 09/23/16 23:59 99 Mechanical Ventilator 30 09/23/16 22:04 30 09/23/16 22:00 37.2 60 22 90/70 100 Mechanical Ventilator 30 09/23/16 20:00 37.2 61 22 97/73 100 Mechanical Ventilator 30 09/23/16 20:00 99 Mechanical Ventilator 30 09/23/16 20:00 30 09/23/16 19:35 30 09/23/16 17:57 30 09/23/16 17:30 37.4 65 26 100 113/69 09/23/16 17:15 37.4 61 24 100 115/70 09/23/16 17:00 37.4 69 28 117/67 100 123/74 09/23/16 16:45 37.5 65 24 99 120/71 09/23/16 16:30 37.5 60 24 99 114/68 09/23/16 16:15 37.6 70 24 100 113/70 09/23/16 16:00 30 09/23/16 16:00 97 Mechanical Ventilator 30 09/23/16 16:00 37.7 71 24 98/72 96 112/70 09/23/16 15:45 37.7 77 24 100 112/70 09/23/16 15:45 30 09/23/16 15:30 37.7 72 24 99 114/70 09/23/16 15:15 37.7 75 31 94 112/68 09/23/16 15:00 37.6 74 31 103/68 94 118/71 09/23/16 14:45 37.5 72 21 95 115/69 09/23/16 14:30 37.5 78 29 94 116/70 09/23/16 14:15 37.5 65 24 99 108/65 09/23/16 14:00 37.5 65 24 103/67 99 108/67 09/23/16 14:00 37.5 65 24 103/67 99 108/67 09/23/16 13:45 37.6 72 24 100 110/67 09/23/16 13:30 37.6 73 24 100 111/66 09/23/16 13:15 37.6 71 24 100 09/23/16 13:15 37.6 71 24 100 09/23/16 13:00 37.6 65 24 116/73 99 09/23/16 12:45 37.6 72 24 100 121/72 09/23/16 12:30 37.6 76 24 99 108/67 09/23/16 12:15 37.2 72 24 99 115/69 09/23/16 12:00 36.2 83 28 113/70 98 111/68 09/23/16 12:00 30 09/23/16 12:00 36.2 83 28 113/70 98 111/68 09/23/16 12:00 99 Mechanical Ventilator 30 09/23/16 11:20 30 09/23/16 11:00 37.5 76 24 111/65 100 123/75 09/23/16 10:45 37.5 71 24 100 123/74 09/23/16 10:30 37.4 71 24 98 124/75 09/23/16 10:30 37.4 71 24 98 124/75 09/23/16 10:15 37.4 72 24 100 119/71 Last 24 Hours Test 09/23/16 11:45 09/23/16 12:54 09/23/16 13:25 09/23/16 15:06 Lactic Acid Level 1.4 mmol/L 1.2 mmol/L Random Cortisol 20.68 mcg/dl Bedside Glucose (other) 108 mg/dl Blood Gas Sample Site Art Line Bedside Blood Gas pH (LAB) 7.44 Bedside Blood Gas pCO2 (LAB) 35 mmHg Bedside Blood Gas pO2 (LAB) 67 mmHg Bedside Blood Gas HCO3 (LAB) 24 meq/L Bedside Blood Gas Total CO2 25 mEq/l Bedside Blood Gas Base Excess (LAB) 0.0 meq/L Bedside Blood Gas O2 Saturation 94.0 % Augustine Test NA Oxygen Delivery Device Ventilator Bedside Oxygen Rate (breaths/min) 24 Blood Gas Minute Ventilation 13.2 Bedside FiO2 30 % Blood Gas Tidal Volume 550 Blood Gas PEEP 10 Activated Partial Thromboplast Time 93.3 SECONDS Partial Thromboplastin Ratio 3.6 Sodium Level 144 mmol/L Potassium Level 3.4 mmol/L Chloride Level 110 mmol/L Carbon Dioxide Level 25 mmol/L Anion Gap 9.0 mmol/L Blood Urea Nitrogen 7 mg/dl Creatinine 0.64 mg/dl Est Creatinine Clear Calc Drug Dose 143.3 ml/min Estimated GFR () 119.1 Estimated GFR (Non- 102.7 BUN/Creatinine Ratio 10.3 Random Glucose 159 mg/dl Calcium Level 6.8 mg/dl Valproic Acid (Depakene) Level 33 mcg/ml Test 09/23/16 16:05 09/23/16 20:02 09/23/16 22:10 09/23/16 23:56 Valproic Acid (Depakene) Level 112 mcg/ml Lactic Acid Level 1.1 mmol/L Activated Partial Thromboplast Time 42.0 SECONDS Partial Thromboplastin Ratio 1.6 Bedside Glucose (other) 100 mg/dl Test 09/24/16 03:50 09/24/16 06:19 09/24/16 09:23 09/24/16 10:00 White Blood Count 9.26 K/uL Red Blood Count 3.37 M/uL Hemoglobin 10.7 g/dL Hematocrit 30.7 % Mean Corpuscular Volume 91.1 fL Mean Corpuscular Hemoglobin 31.8 pg Mean Corpuscular Hemoglobin Concent 34.9 g/dl Platelet Count 126 K/uL Mean Platelet Volume 9.3 fL Neutrophils (%) (Auto) 62.8 % Lymphocytes (%) (Auto) 27.5 % Monocytes (%) (Auto) 7.8 % Eosinophils (%) (Auto) 1.1 % Basophils (%) (Auto) 0.2 % Neutrophils # (Auto) 5.81 K/uL Lymphocytes # (Auto) 2.55 K/uL Monocytes # (Auto) 0.72 K/uL Eosinophils # (Auto) 0.10 K/uL Basophils # (Auto) 0.02 K/uL RDW Standard Deviation 47.3 fL RDW Coefficient of Variation 14.1 % Immature Granulocyte % (Auto) 0.6 % Immature Granulocyte # (Auto) 0.06 K/uL Activated Partial Thromboplast Time 79.5 SECONDS Partial Thromboplastin Ratio 3.1 Sodium Level 143 mmol/L Potassium Level 3.8 mmol/L Chloride Level 109 mmol/L Carbon Dioxide Level 26 mmol/L Anion Gap 8.0 mmol/L Blood Urea Nitrogen 6 mg/dl Creatinine 0.59 mg/dl Est Creatinine Clear Calc Drug Dose 155.4 ml/min Estimated GFR () 123.1 Estimated GFR (Non- 106.2 BUN/Creatinine Ratio 10.3 Random Glucose 101 mg/dl Lactic Acid Level 1.0 mmol/L Calcium Level 8.2 mg/dl Phosphorus Level 1.9 mg/dl Magnesium Level 2.2 mg/dl Total Bilirubin 0.6 mg/dl Aspartate Amino Transf (AST/SGOT) 58 U/L Alanine Aminotransferase (ALT/SGPT) 32 U/L Alkaline Phosphatase 33 U/L Total Protein 5.8 gm/dl Albumin 3.3 gm/dl Globulin 2.5 gm/dl Albumin/Globulin Ratio 1.3 Valproic Acid (Depakene) Level 103 mcg/ml Phenobarbital Level 14.9 mcg/mL Bedside Glucose (other) 93 mg/dl Blood Gas Sample Site Art Line Bedside Blood Gas pH (LAB) 7.45 Bedside Blood Gas pCO2 (LAB) 33 mmHg Bedside Blood Gas pO2 (LAB) 74 mmHg Bedside Blood Gas HCO3 (LAB) 23 meq/L Bedside Blood Gas Total CO2 24 mEq/l Bedside Blood Gas Base Excess (LAB) -1.0 meq/L Bedside Blood Gas O2 Saturation 96.0 % Augustine Test NA Oxygen Delivery Device Ventilator Bedside Oxygen Rate (breaths/min) 22 Blood Gas Minute Ventilation 12.1 Bedside FiO2 30 % Blood Gas Tidal Volume 550 Blood Gas PEEP 10 Exam: Gen.: Patient is intubated with no spontaneous movement Neurological examination: Mental status: Unresponsive to voice, tactile stimulation, and deep nailbed pressure Eyes are midpoint. Pupils are +1 to +2 without any significant response to light. No gag to suctioning No withdrawal or grimacing to deep nailbed pressure in all 4 extremities. +0 DTR on all 4 extremities. Toes were equivocal to plantar stimulation Current Inpatient Medications Medications (Trade) Dose Ordered Sig/Christina Route Start Time Stop Time Status Last Admin Dose Admin Artificial Tears 1 appln 1 appln Q2H PRN OPB 09/20/16 17:00 10/20/16 16:59 09/21/16 11:26 1 APPLN Pantoprazole Sodium 40 mg/ Syringe 10 ml @ 5 mls/min DAILY@11 IV 09/21/16 11:00 10/21/16 10:59 09/23/16 07:30 5 MLS/MIN Midazolam HCl (Midazolam 125MG/ 250ML D5w) 250 ml @ 0 mls/hr Q0M PRN IV 09/20/16 16:57 10/20/16 16:56 09/22/16 23:11 24 MLS/HR Meperidine HCl 25 mg 25 mg Q2H PRN IV 09/20/16 17:00 10/04/16 16:59 09/22/16 12:23 25 MG Fentanyl Citrate 250 ml @ 0 mls/hr Q0M PRN IV 09/20/16 16:57 10/04/16 16:56 09/22/16 16:49 5 MLS/HR Amiodarone HCL/ Dextrose 200 ml @ 16.7 mls/hr [id number] IV 09/20/16 23:15 10/20/16 23:14 09/24/16 03:50 16.7 MLS/HR Norepinephrine Bitartrate/ Dextrose (Levophed Inj/ D5W 500ml) 508 ml @ 0 mls/hr Q0M PRN IV 09/20/16 17:30 10/20/16 17:29 09/24/16 03:01 20.1 MLS/HR Miscellaneous Information ( Icu Electrolyte Replacement Protocol) 1 ea per protocol PRN N/A 09/20/16 17:30 09/27/16 17:29 Glucose (Glucose 40% Gel) 15-30 GRAMS 15 GRAMS... UD PRN PO 09/20/16 18:00 10/20/16 17:59 Glucose (Glucose Chew Tab) 4-8 Tablets 4 Tabl... UD PRN PO 09/20/16 18:00 10/20/16 17:59 Dextrose (Dextrose 50% 50ML Syringe) 25-50ML OF 50% DW IV FOR... UD PRN IV 09/20/16 18:00 10/20/16 17:59 Glucagon 1 mg 1 mg UD PRN SQ 09/20/16 18:00 10/20/16 17:59 Heparin Sodium/ Dextrose (Heparin 25,000 Unit/500ml D5W) 500 ml @ 25 mls/hr Q20H PRN IV 09/20/16 20:45 10/20/16 20:44 09/23/16 22:45 20 MLS/HR Enteral Nutritional Formula (Peptamen Intense VHP) 1,000 ml UD OG 09/21/16 09:00 10/21/16 08:59 09/21/16 11:07 1,000 ML Heparin Sodium (Porcine) (Heparin 10 Unit/ ml 5 ml Flush) 5 ml PRN PRN FLUSH 09/21/16 01:15 10/21/16 01:14 Buspirone HCl (BusPAR TAB) 60 mg ONE PRN NG 09/22/16 10:00 10/22/16 09:59 Acetaminophen 650 mg 650 mg ONE PRN NH 09/22/16 10:00 10/22/16 09:59 09/23/16 11:54 650 MG Valproate Sodium/ Dextrose (Depacon Iv/D5 50ml) 52.5 ml @ 55 mls/hr Q6 IV 09/22/16 12:00 10/22/16 11:59 09/24/16 06:18 55 MLS/HR Thiamine HCl (Vitamin B-1 Inj) 100 mg QAM IM 09/24/16 09:00 09/28/16 08:59 Cyanocobalamin 1000 mcg 1,000 mcg DAILY IM 09/24/16 09:00 09/27/16 08:59 Levetiracetam 750 mg/Dextrose 107.5 ml @ 420 mls/hr Q6@0300,0900,1500,2100 IV 09/23/16 21:00 10/23/16 20:59 09/24/16 02:42 420 MLS/HR Potassium Phosphate/Sodium Chloride (Potassium Phosphate Inj/Nss 250ml) 255 ml @ 127.5 mls/ hr TODAY@0930 IV 09/24/16 09:30 09/24/16 11:29 Impression This is a 66-year-old male status post heart attack arrest and likely brain anoxia with a post anoxic seizures. Seizures at this time appear to be under control with Keppra, valproic acid, Versed, and phenobarb. Patient is unresponsive on examination, although could be partially compromised by Versed and phenobarbital. Overall neurological prognosis looks poor Plan Recommend nonurgent noncontrast MRI of the brain for further neurological prognosis if able. Agree that it would be reasonable to try to withdrawal anesthetic agents to see if this improves his exam, but is at high risk for return of clinical seizures. If need be, would recommend that we could go up on Keppra 2 a max dose of 1000 mg 4 times a day (4000mg total daily dose). Continue valproic acid without change, this is likely max dose. If there is any questions or concerns, feel free to call/page me.
[2016-09-24 10:31] LABS: PARTIAL THROMBOPLASTIN RATIO 1.5
[2016-09-24] MEDS: MEPERIDINE HCL 25 MG/ML CARP IV PRN ×2 (11:00→16:08)
[2016-09-24] MEDS ORDERED: ACETAMINOPHEN IV 100 ML IV PRN (11:15)
--- NOTE | 2016-09-24 11:47 | Critical Care Progress Note ---
Critical Care Progress Note Date of Service Sep 24, 2016. ICU Day ICU Day Number: [address] Emerson Subjective Low grade fever today No seizure noted this morning, s/p EEG Developed some shivering. Otherwise no improvement in mental status Still on pressors Heart rate well controlled Objective General: Intubated, unresponsive Heent: NC/AT, pupils round, equal and reactive to light Lungs: Clear to auscultation b/l CVS: S1S2 irregular, no audible murmurs Abdomen: soft, non-distended Ext: B/l LE pitting edema. Left radial a-line. 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 Absent gag reflex. Patient has spontaneous breathing Assessment & Plan 66 year old male presents with outpatient v-fib cardiac arrest. Now encephalopathic, with seizures, suspected anoxic brain injury. 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 Sedation with Versed drip, also on Fentanyl drip EEG this AM showed control of the seizures. Needs strict control of the fever. IV acetaminophen, cooling blanket. When feasible, will obtain MRI brain without contrast. He can only get 2 iv pumps in the MRI. Probably will stay on Levophed and Versed for the MRI CVS: In cardiogenic shock Continue sherlyn-pressors Amiodarone drip with good results. Consider converting to PO amiodarone Fully anticoagulated with heparin Cath done, showed clean coronaries Pulmonary: Elevate head Good oxygenation Lower Vt to 500, PEEP to 8, keep peak airway pressure under 30 if possible. Repeat ABG at noon. Consider switching to PRVC Not a weaning candidate at this point. Will likely require a tracheostomy if the family wants to pursue aggressive care and if the mental status doesn't improve ET tube pushed in 3 cm today GI: Resume trickle feeds, see if he tolerates Protonix for prophylaxis Renal/metabolic: Monitor urine output, adequate so far Do not actively correct the hyponatremia. Sodium 143 today. Kphos 15 mmols Mg is 2.2 ID: Leukocytosis resolved monitor off antibiotics Endo: Euglycemic DVT prophylaxis: fully anticoagulated Patient is DNR, Discussed in detail at bedside with the daughter and the partner. Overall prognosis is poor Critical care time spent greater than 45 minutes Remains in the ICU for respiratory failure on vent, hemodynamic instability on pressors Consults & Procedures Consultants: Cardiology Procedures: CVC, see separate procedure note Arterial Line placement, see separate procedure note Data Medications: Current Inpatient Medications Medications (Trade) Dose Ordered Sig/Christina Route Start Time Stop Time Status Last Admin Dose Admin Artificial Tears 1 appln 1 appln Q2H PRN OPB 09/20/16 17:00 10/20/16 16:59 09/21/16 11:26 1 APPLN Pantoprazole Sodium 40 mg/ Syringe 10 ml @ 5 mls/min DAILY@11 IV 09/21/16 11:00 10/21/16 10:59 09/24/16 10:14 5 MLS/MIN Midazolam HCl (Midazolam 125MG/ 250ML D5w) 250 ml @ 0 mls/hr Q0M PRN IV 09/20/16 16:57 10/20/16 16:56 09/22/16 23:11 24 MLS/HR Meperidine HCl 25 mg 25 mg Q2H PRN IV 09/20/16 17:00 10/04/16 16:59 09/24/16 11:00 25 MG Fentanyl Citrate 250 ml @ 0 mls/hr Q0M PRN IV 09/20/16 16:57 10/04/16 16:56 09/22/16 16:49 5 MLS/HR Amiodarone HCL/ Dextrose 200 ml @ 16.7 mls/hr [id number] IV 09/20/16 23:15 10/20/16 23:14 09/24/16 03:50 16.7 MLS/HR Norepinephrine Bitartrate/ Dextrose (Levophed Inj/ D5W 500ml) 508 ml @ 0 mls/hr Q0M PRN IV 09/20/16 17:30 10/20/16 17:29 09/24/16 03:01 20.1 MLS/HR Miscellaneous Information ( Icu Electrolyte Replacement Protocol) 1 ea per protocol PRN N/A 09/20/16 17:30 09/27/16 17:29 Glucose (Glucose 40% Gel) 15-30 GRAMS 15 GRAMS... UD PRN PO 09/20/16 18:00 10/20/16 17:59 Glucose (Glucose Chew Tab) 4-8 Tablets 4 Tabl... UD PRN PO 09/20/16 18:00 10/20/16 17:59 Dextrose (Dextrose 50% 50ML Syringe) 25-50ML OF 50% DW IV FOR... UD PRN IV 09/20/16 18:00 10/20/16 17:59 Glucagon 1 mg 1 mg UD PRN SQ 09/20/16 18:00 10/20/16 17:59 Heparin Sodium/ Dextrose (Heparin 25,000 Unit/500ml D5W) 500 ml @ 25 mls/hr Q20H PRN IV 09/20/16 20:45 10/20/16 20:44 09/23/16 22:45 20 MLS/HR Enteral Nutritional Formula (Peptamen Intense VHP) 1,000 ml UD OG 09/21/16 09:00 10/21/16 08:59 09/21/16 11:07 1,000 ML Heparin Sodium (Porcine) (Heparin 10 Unit/ ml 5 ml Flush) 5 ml PRN PRN FLUSH 09/21/16 01:15 10/21/16 01:14 Buspirone HCl (BusPAR TAB) 60 mg ONE PRN NG 09/22/16 10:00 10/22/16 09:59 Acetaminophen 650 mg 650 mg ONE PRN MS 09/22/16 10:00 10/22/16 09:59 09/23/16 11:54 650 MG Valproate Sodium/ Dextrose (Depacon Iv/D5 50ml) 52.5 ml @ 55 mls/hr Q6 IV 09/22/16 12:00 10/22/16 11:59 09/24/16 06:18 55 MLS/HR Thiamine HCl (Vitamin B-1 Inj) 100 mg QAM IM 09/24/16 09:00 09/28/16 08:59 09/24/16 10:15 100 MG Cyanocobalamin 1000 mcg 1,000 mcg DAILY IM 09/24/16 09:00 09/27/16 08:59 09/24/16 10:15 1,000 MCG Levetiracetam 750 mg/Dextrose 107.5 ml @ 420 mls/hr Q6@0300,0900,1500,2100 IV 09/23/16 21:00 10/23/16 20:59 09/24/16 10:14 420 MLS/HR Potassium Phosphate/Sodium Chloride (Potassium Phosphate Inj/Nss 250ml) 255 ml @ 127.5 mls/ hr TODAY@0930 IV 09/24/16 09:30 09/24/16 11:29 09/24/16 10:14 127.5 MLS/HR I & O: 24-Hour Column 09/24/16 07:59 Intake Total 3734 ml Output Total 2450 ml Balance 1284 ml Vital Signs: Date Time Temp Pulse Resp B/P Pulse Ox O2 Delivery O2 Flow Rate FiO2 09/24/16 07:45 30 09/24/16 06:00 37.5 72 21 123/78 99 Mechanical Ventilator 30 09/24/16 04:00 37.0 58 23 110/74 98 Mechanical Ventilator 30 09/24/16 04:00 99 Mechanical Ventilator 30 09/24/16 04:00 30 09/24/16 02:00 36.8 58 23 107/78 99 Mechanical Ventilator 30 09/24/16 01:17 30 09/24/16 00:00 36.8 58 22 114/72 100 Mechanical Ventilator 30 09/23/16 23:59 30 09/23/16 23:59 99 Mechanical Ventilator 30 09/23/16 22:04 30 09/23/16 22:00 37.2 60 22 90/70 100 Mechanical Ventilator 30 09/23/16 20:00 37.2 61 22 97/73 100 Mechanical Ventilator 30 09/23/16 20:00 99 Mechanical Ventilator 30 09/23/16 20:00 30 09/23/16 19:35 30 09/23/16 17:57 30 09/23/16 17:30 37.4 65 26 100 113/69 09/23/16 17:15 37.4 61 24 100 115/70 09/23/16 17:00 37.4 69 28 117/67 100 123/74 09/23/16 16:45 37.5 65 24 99 120/71 09/23/16 16:30 37.5 60 24 99 114/68 09/23/16 16:15 37.6 70 24 100 113/70 09/23/16 16:00 30 09/23/16 16:00 97 Mechanical Ventilator 30 09/23/16 16:00 37.7 71 24 98/72 96 112/70 09/23/16 15:45 37.7 77 24 100 112/70 09/23/16 15:45 30 09/23/16 15:30 37.7 72 24 99 114/70 09/23/16 15:15 37.7 75 31 94 112/68 09/23/16 15:00 37.6 74 31 103/68 94 118/71 09/23/16 14:45 37.5 72 21 95 115/69 09/23/16 14:30 37.5 78 29 94 116/70 09/23/16 14:15 37.5 65 24 99 108/65 09/23/16 14:00 37.5 65 24 103/67 99 108/67 09/23/16 14:00 37.5 65 24 103/67 99 108/67 09/23/16 13:45 37.6 72 24 100 110/67 09/23/16 13:30 37.6 73 24 100 111/66 09/23/16 13:15 37.6 71 24 100 09/23/16 13:15 37.6 71 24 100 09/23/16 13:00 37.6 65 24 116/73 99 09/23/16 12:45 37.6 72 24 100 121/72 09/23/16 12:30 37.6 76 24 99 108/67 09/23/16 12:15 37.2 72 24 99 115/69 09/23/16 12:00 36.2 83 28 113/70 98 111/68 09/23/16 12:00 30 09/23/16 12:00 36.2 83 28 113/70 98 111/68 09/23/16 12:00 99 Mechanical Ventilator 30 09/23/16 11:20 30 Laboratory Results: Last 24 Hours Test 09/23/16 11:45 09/23/16 12:54 09/23/16 13:25 09/23/16 15:06 Lactic Acid Level 1.4 mmol/L 1.2 mmol/L Random Cortisol 20.68 mcg/dl Bedside Glucose (other) 108 mg/dl Blood Gas Sample Site Art Line Bedside Blood Gas pH (LAB) 7.44 Bedside Blood Gas pCO2 (LAB) 35 mmHg Bedside Blood Gas pO2 (LAB) 67 mmHg Bedside Blood Gas HCO3 (LAB) 24 meq/L Bedside Blood Gas Total CO2 25 mEq/l Bedside Blood Gas Base Excess (LAB) 0.0 meq/L Bedside Blood Gas O2 Saturation 94.0 % Augustine Test NA Oxygen Delivery Device Ventilator Bedside Oxygen Rate (breaths/min) 24 Blood Gas Minute Ventilation 13.2 Bedside FiO2 30 % Blood Gas Tidal Volume 550 Blood Gas PEEP 10 Activated Partial Thromboplast Time 93.3 SECONDS Partial Thromboplastin Ratio 3.6 Sodium Level 144 mmol/L Potassium Level 3.4 mmol/L Chloride Level 110 mmol/L Carbon Dioxide Level 25 mmol/L Anion Gap 9.0 mmol/L Blood Urea Nitrogen 7 mg/dl Creatinine 0.64 mg/dl Est Creatinine Clear Calc Drug Dose 143.3 ml/min Estimated GFR () 119.1 Estimated GFR (Non- 102.7 BUN/Creatinine Ratio 10.3 Random Glucose 159 mg/dl Calcium Level 6.8 mg/dl Valproic Acid (Depakene) Level 33 mcg/ml Test 09/23/16 16:05 09/23/16 20:02 09/23/16 22:10 09/23/16 23:56 Valproic Acid (Depakene) Level 112 mcg/ml Lactic Acid Level 1.1 mmol/L Activated Partial Thromboplast Time 42.0 SECONDS Partial Thromboplastin Ratio 1.6 Bedside Glucose (other) 100 mg/dl Test 09/24/16 03:50 09/24/16 06:19 09/24/16 09:23 09/24/16 10:05 White Blood Count 9.26 K/uL Red Blood Count 3.37 M/uL Hemoglobin 10.7 g/dL Hematocrit 30.7 % Mean Corpuscular Volume 91.1 fL Mean Corpuscular Hemoglobin 31.8 pg Mean Corpuscular Hemoglobin Concent 34.9 g/dl Platelet Count 126 K/uL Mean Platelet Volume 9.3 fL Neutrophils (%) (Auto) 62.8 % Lymphocytes (%) (Auto) 27.5 % Monocytes (%) (Auto) 7.8 % Eosinophils (%) (Auto) 1.1 % Basophils (%) (Auto) 0.2 % Neutrophils # (Auto) 5.81 K/uL Lymphocytes # (Auto) 2.55 K/uL Monocytes # (Auto) 0.72 K/uL Eosinophils # (Auto) 0.10 K/uL Basophils # (Auto) 0.02 K/uL RDW Standard Deviation 47.3 fL RDW Coefficient of Variation 14.1 % Immature Granulocyte % (Auto) 0.6 % Immature Granulocyte # (Auto) 0.06 K/uL Activated Partial Thromboplast Time 79.5 SECONDS 39.9 SECONDS Partial Thromboplastin Ratio 3.1 1.5 Sodium Level 143 mmol/L Potassium Level 3.8 mmol/L Chloride Level 109 mmol/L Carbon Dioxide Level 26 mmol/L Anion Gap 8.0 mmol/L Blood Urea Nitrogen 6 mg/dl Creatinine 0.59 mg/dl Est Creatinine Clear Calc Drug Dose 155.4 ml/min Estimated GFR () 123.1 Estimated GFR (Non- 106.2 BUN/Creatinine Ratio 10.3 Random Glucose 101 mg/dl Lactic Acid Level 1.0 mmol/L Calcium Level 8.2 mg/dl Phosphorus Level 1.9 mg/dl Magnesium Level 2.2 mg/dl Total Bilirubin 0.6 mg/dl Aspartate Amino Transf (AST/SGOT) 58 U/L Alanine Aminotransferase (ALT/SGPT) 32 U/L Alkaline Phosphatase 33 U/L Total Protein 5.8 gm/dl Albumin 3.3 gm/dl Globulin 2.5 gm/dl Albumin/Globulin Ratio 1.3 Valproic Acid (Depakene) Level 103 mcg/ml Phenobarbital Level 14.9 mcg/mL Bedside Glucose (other) 93 mg/dl Blood Gas Sample Site Art Line Bedside Blood Gas pH (LAB) 7.45 Bedside Blood Gas pCO2 (LAB) 33 mmHg Bedside Blood Gas pO2 (LAB) 74 mmHg Bedside Blood Gas HCO3 (LAB) 23 meq/L Bedside Blood Gas Total CO2 24 mEq/l Bedside Blood Gas Base Excess (LAB) -1.0 meq/L Bedside Blood Gas O2 Saturation 96.0 % Augustine Test NA Oxygen Delivery Device Ventilator Bedside Oxygen Rate (breaths/min) 22 Blood Gas Minute Ventilation 12.1 Bedside FiO2 30 % Blood Gas Tidal Volume 550 Blood Gas PEEP 10
--- NOTE | 2016-09-24 12:54 | DIAGNOSTIC IMAGING REPORT ---
MRI OF THE BRAIN WITHOUT CONTRAST CLINICAL HISTORY: Cardiac arrest. Anoxic brain injury. COMPARISON STUDY: Noncontrast head CT dated 09/22/2016 FINDINGS: Sagittal T1, axial diffusion, proton density and T2 weighted axial, coronal FLAIR, and axial T1-weighted images were acquired. No intra or extra-axial mass lesions are visualized There is diffuse increased signal within the cortex on diffusion-weighted imaging. 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 There is no evidence of ventricular dilatation. Proton density T2-weighted and FLAIR images reveal diffuse increased cortical FLAIR signal. There are no abnormal flow voids. There are inflammatory changes with bilateral maxillary sinus air-fluid levels. There is increased T2 signal within the mastoids likely inflammatory. 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 Electronically signed by: Cuong Hart M.D. 09/24/2016 12:53 PM Dictated Date/Time: 09/24/2016 12:48 PM
[2016-09-24] MEDS ORDERED: HEPARIN IV BOLUS 7,000 UNIT in SYRINGE 0 ML IV ONE (14:00)
[2016-09-24 14:30] LABS: ISTAT ARTERIAL BLOOD GAS HCO3 22 meq/L (19-24); ISTAT ARTERIAL BLOOD GAS PCO2 30 mmHg (35-46); ISTAT ARTERIAL BLOOD GAS PO2 67 mmHg (80-95); ISTAT ARTERIAL BLOOD GAS pH 7.46 (7.35-7.45); ISTAT CARBON DIOXIDE 23 mEq/l (24-31); ISTAT DELIVERY SYSTEM Ventilator; ISTAT FIO2 30 %; ISTAT PEEP 8; ISTAT RATE 22; ISTAT SITE Art Line; VE 11; Vt 500
[2016-09-24] MEDS: HEPARIN 25,000 UNIT/500ML D5W 500 ML IV PRN (14:52)
[2016-09-24 16:10] LABS: ISTAT ARTERIAL BLOOD GAS HCO3 21 meq/L (19-24); ISTAT ARTERIAL BLOOD GAS PCO2 42 mmHg (35-46); ISTAT ARTERIAL BLOOD GAS PO2 136 mmHg (80-95); ISTAT ARTERIAL BLOOD GAS pH 7.31 (7.35-7.45); ISTAT CARBON DIOXIDE 23 mEq/l (24-31)
[2016-09-24 16:11] LABS: ISTAT FIO2 40 %
[2016-09-24 16:12] LABS: ISTAT ALLEN TEST NOT PERFORMED; ISTAT SAMPLE TYPE ARTERIAL; ISTAT SITE Art Line
[2016-09-24 16:13] LABS: ISTAT DELIVERY SYSTEM Ventilator; ISTAT PEEP 10; ISTAT RATE 24; VE 12.2; Vt 550
[2016-09-24 16:14] LABS: ISTAT SPO2 100 %
--- NOTE | 2016-09-24 16:27 | Family Medicine Progress Note ---
Progress Note Date of Service Sep 24, 2016. Subjective Patient remains obtunded family in the room Seizures noted overnight; given phenobarbital; remains on Keppra and Depakote Additional Comments: Review of systems could not be obtained due somnolent state Medications Current Inpatient Medications Medications (Trade) Dose Ordered Sig/Christina Route Start Time Stop Time Status Last Admin Dose Admin Artificial Tears 1 appln 1 appln Q2H PRN OPB 09/20/16 17:00 10/20/16 16:59 09/21/16 11:26 1 APPLN Pantoprazole Sodium 40 mg/ Syringe 10 ml @ 5 mls/min DAILY@11 IV 09/21/16 11:00 10/21/16 10:59 09/24/16 10:14 5 MLS/MIN Midazolam HCl (Midazolam 125MG/ 250ML D5w) 250 ml @ 0 mls/hr Q0M PRN IV 09/20/16 16:57 10/20/16 16:56 09/22/16 23:11 24 MLS/HR Meperidine HCl 25 mg 25 mg Q2H PRN IV 09/20/16 17:00 10/04/16 16:59 09/24/16 16:08 25 MG Fentanyl Citrate 250 ml @ 0 mls/hr Q0M PRN IV 09/20/16 16:57 10/04/16 16:56 09/22/16 16:49 5 MLS/HR Amiodarone HCL/ Dextrose 200 ml @ 16.7 mls/hr [id number] IV 09/20/16 23:15 10/20/16 23:14 09/24/16 15:47 16.7 MLS/HR Norepinephrine Bitartrate/ Dextrose (Levophed Inj/ D5W 500ml) 508 ml @ 0 mls/hr Q0M PRN IV 09/20/16 17:30 10/20/16 17:29 09/24/16 03:01 20.1 MLS/HR Miscellaneous Information ( Icu Electrolyte Replacement Protocol) 1 ea per protocol PRN N/A 09/20/16 17:30 09/27/16 17:29 Glucose (Glucose 40% Gel) 15-30 GRAMS 15 GRAMS... UD PRN PO 09/20/16 18:00 10/20/16 17:59 Glucose (Glucose Chew Tab) 4-8 Tablets 4 Tabl... UD PRN PO 09/20/16 18:00 10/20/16 17:59 Dextrose (Dextrose 50% 50ML Syringe) 25-50ML OF 50% DW IV FOR... UD PRN IV 09/20/16 18:00 10/20/16 17:59 Glucagon 1 mg 1 mg UD PRN SQ 09/20/16 18:00 10/20/16 17:59 Heparin Sodium/ Dextrose (Heparin 25,000 Unit/500ml D5W) 500 ml @ 28 mls/hr [id number] PRN IV 09/20/16 20:45 10/20/16 20:44 09/24/16 14:52 28 MLS/HR Enteral Nutritional Formula (Peptamen Intense VHP) 1,000 ml UD OG 09/21/16 09:00 10/21/16 08:59 09/21/16 11:07 1,000 ML Heparin Sodium (Porcine) (Heparin 10 Unit/ ml 5 ml Flush) 5 ml PRN PRN FLUSH 09/21/16 01:15 10/21/16 01:14 Buspirone HCl (BusPAR TAB) 60 mg ONE PRN NG 09/22/16 10:00 10/22/16 09:59 Acetaminophen 650 mg 650 mg ONE PRN TX 09/22/16 10:00 10/22/16 09:59 09/23/16 11:54 650 MG Valproate Sodium/ Dextrose (Depacon Iv/D5 50ml) 52.5 ml @ 55 mls/hr Q6 IV 09/22/16 12:00 10/22/16 11:59 09/24/16 13:29 55 MLS/HR Thiamine HCl (Vitamin B-1 Inj) 100 mg QAM IM 09/24/16 09:00 09/28/16 08:59 09/24/16 10:15 100 MG Cyanocobalamin 1000 mcg 1,000 mcg DAILY IM 09/24/16 09:00 09/27/16 08:59 09/24/16 10:15 1,000 MCG Levetiracetam 750 mg/Dextrose 107.5 ml @ 420 mls/hr Q6@0300,0900,1500,2100 IV 09/23/16 21:00 10/23/16 20:59 09/24/16 14:50 420 MLS/HR Acetaminophen (Ofirmev Iv) 100 ml @ 400 mls/hr Q8H PRN IV 09/24/16 11:15 10/24/16 11:14 09/24/16 13:30 400 MLS/HR Objective Vital Signs Date Time Temp Pulse Resp B/P Pulse Ox O2 Delivery O2 Flow Rate FiO2 09/24/16 15:00 37.3 71 22 98/70 94 Mechanical Ventilator 40 09/24/16 14:00 37.3 71 22 96/67 89 Mechanical Ventilator 30 09/24/16 13:03 68 22 100/75 91 Mechanical Ventilator 30 09/24/16 13:00 30 09/24/16 13:00 37.9 70 22 111/67 96 Mechanical Ventilator 30 09/24/16 13:00 Mechanical Ventilator 30 09/24/16 11:00 37.9 81 22 115/88 97 Mechanical Ventilator 30 09/24/16 10:45 30 09/24/16 10:00 37.6 67 22 115/71 99 Mechanical Ventilator 30 09/24/16 09:00 37.4 82 22 118/71 97 Mechanical Ventilator 30 09/24/16 08:00 Mechanical Ventilator 30 09/24/16 08:00 30 09/24/16 08:00 37.4 65 22 118/70 97 Mechanical Ventilator 30 09/24/16 08:00 30 09/24/16 07:45 30 09/24/16 06:00 37.5 72 21 123/78 99 Mechanical Ventilator 30 09/24/16 04:00 37.0 58 23 110/74 98 Mechanical Ventilator 30 09/24/16 04:00 99 Mechanical Ventilator 30 09/24/16 04:00 30 09/24/16 02:00 36.8 58 23 107/78 99 Mechanical Ventilator 30 09/24/16 01:17 30 09/24/16 00:00 36.8 58 22 114/72 100 Mechanical Ventilator 30 09/23/16 23:59 30 09/23/16 23:59 99 Mechanical Ventilator 30 09/23/16 22:04 30 09/23/16 22:00 37.2 60 22 90/70 100 Mechanical Ventilator 30 09/23/16 20:00 37.2 61 22 97/73 100 Mechanical Ventilator 30 09/23/16 20:00 99 Mechanical Ventilator 30 09/23/16 20:00 30 09/23/16 19:35 30 09/23/16 17:57 30 09/23/16 17:30 37.4 65 26 100 113/69 09/23/16 17:15 37.4 61 24 100 115/70 09/23/16 17:00 37.4 69 28 117/67 100 123/74 09/23/16 16:45 37.5 65 24 99 120/71 09/23/16 16:30 37.5 60 24 99 114/68 09/23/16 16:15 37.6 70 24 100 113/70 Physical Exam General Appearance: WD/WN, no apparent distress Eyes: sclerae normal ENT: + nasal drainage, + pertinent finding (ET tube in place) Neck: supple, no adenopathy, no JVD Respiratory/Chest: chest non-tender, no respiratory distress, no accessory muscle use, + pertinent finding (coarse breath sounds bilaterally) Cardiovascular: + irregularly irregular Abdomen: normal bowel sounds, non tender, soft Extremities: non-tender, no pedal edema Neurologic/Psychiatric: + pertinent finding (unconcious, sedated) Skin: normal color, warm/dry, no rash Lymphatic: no adenopathy Laboratory Results Last 24 Hours Test 09/23/16 20:02 09/23/16 22:10 09/23/16 23:56 09/24/16 03:50 Lactic Acid Level 1.1 mmol/L 1.0 mmol/L Activated Partial Thromboplast Time 42.0 SECONDS 79.5 SECONDS Partial Thromboplastin Ratio 1.6 3.1 Bedside Glucose (other) 100 mg/dl White Blood Count 9.26 K/uL Red Blood Count 3.37 M/uL Hemoglobin 10.7 g/dL Hematocrit 30.7 % Mean Corpuscular Volume 91.1 fL Mean Corpuscular Hemoglobin 31.8 pg Mean Corpuscular Hemoglobin Concent 34.9 g/dl Platelet Count 126 K/uL Mean Platelet Volume 9.3 fL Neutrophils (%) (Auto) 62.8 % Lymphocytes (%) (Auto) 27.5 % Monocytes (%) (Auto) 7.8 % Eosinophils (%) (Auto) 1.1 % Basophils (%) (Auto) 0.2 % Neutrophils # (Auto) 5.81 K/uL Lymphocytes # (Auto) 2.55 K/uL Monocytes # (Auto) 0.72 K/uL Eosinophils # (Auto) 0.10 K/uL Basophils # (Auto) 0.02 K/uL RDW Standard Deviation 47.3 fL RDW Coefficient of Variation 14.1 % Immature Granulocyte % (Auto) 0.6 % Immature Granulocyte # (Auto) 0.06 K/uL Sodium Level 143 mmol/L Potassium Level 3.8 mmol/L Chloride Level 109 mmol/L Carbon Dioxide Level 26 mmol/L Anion Gap 8.0 mmol/L Blood Urea Nitrogen 6 mg/dl Creatinine 0.59 mg/dl Est Creatinine Clear Calc Drug Dose 155.4 ml/min Estimated GFR () 123.1 Estimated GFR (Non- 106.2 BUN/Creatinine Ratio 10.3 Random Glucose 101 mg/dl Calcium Level 8.2 mg/dl Phosphorus Level 1.9 mg/dl Magnesium Level 2.2 mg/dl Total Bilirubin 0.6 mg/dl Aspartate Amino Transf (AST/SGOT) 58 U/L Alanine Aminotransferase (ALT/SGPT) 32 U/L Alkaline Phosphatase 33 U/L Total Protein 5.8 gm/dl Albumin 3.3 gm/dl Globulin 2.5 gm/dl Albumin/Globulin Ratio 1.3 Valproic Acid (Depakene) Level 103 mcg/ml Phenobarbital Level 14.9 mcg/mL Test 09/24/16 06:19 09/24/16 09:23 09/24/16 10:05 09/24/16 14:17 Bedside Glucose (other) 93 mg/dl Blood Gas Sample Site Art Line Art Line Bedside Blood Gas pH (LAB) 7.45 7.46 Bedside Blood Gas pCO2 (LAB) 33 mmHg 30 mmHg Bedside Blood Gas pO2 (LAB) 74 mmHg 67 mmHg Bedside Blood Gas HCO3 (LAB) 23 meq/L 22 meq/L Bedside Blood Gas Total CO2 24 mEq/l 23 mEq/l Bedside Blood Gas Base Excess (LAB) -1.0 meq/L -2.0 meq/L Bedside Blood Gas O2 Saturation 96.0 % 94.0 % Augustine Test NA NA Oxygen Delivery Device Ventilator Ventilator Bedside Oxygen Rate (breaths/min) 22 22 Blood Gas Minute Ventilation 12.1 11 Bedside FiO2 30 % 30 % Blood Gas Tidal Volume 550 500 Blood Gas PEEP 10 8 Activated Partial Thromboplast Time 39.9 SECONDS Partial Thromboplastin Ratio 1.5 Assessment and Plan 66 year old male, day 4 of ICU admission, admitted for out-of hospital Vfib arrest. Day 2 s/p rewarming. Slow sedation wean due to breakthrough seizures. Concerns remain about brain anoxia during initial arrest. Problem list includes: - Seizure activity - S/p V. fib arrest - S/p aortic valve replacement/bicuspid aortic valve - Acute congestive heart failure with reduce EF 20-25% - Thoracic aortic aneurysm stable - Paroxysmal atrial fibrillation Our plan for him is as follows: Anoxic encephalopathy - EEG demonstrates generalized slowing; prognosis guarded of return to pre- arrest baseline - MRI today - Monitor daily electrolytes - Neurology consulted; recommendations appreciated New onset seizure activity - Breakthrough seizure activity yesterday treated with phenobarbital - EEG showing generalized slowing with maximally frontally - Continue Depakote, Keppra and slow Versed wean - Hold tube feeds due to risk of aspiration - Neurology consulted; recommendations appreciated Post-Vfib arrest - Rewarmed, s/p day 2 - Concern for anoxic injury and seizures as noted above Acute Systolic CHF with reduced EF - EF 20-25% - Hold antihypertensives - Globally 8 L positive with good ruine output - Daily weight I/Os Atrial Fibrillation with RVR - Continue Amiodarone infusion - Continue Heparin infusion; previous history of outpatient non-compliance on anticoagulatio Hyperglycemia - BSG: Good control, 110-110s - Continue Insulin infusion per protocol - q4h Acuchecks DVT Prophylaxis - Continue IV Heparin infusion Code Status - DNR Disposition - ICU Continued [facility] stay due to: multiple IV medications needed Discharge planning: uncertain Reviewed: Pt Seen/Exam by Me History intubated. family at bedside unresponsive Constitutional: denies: fever General Appearance: other (on vent) Respiratory: rhonchi, other (On vent) Cardiovascular: regular rate, rhythm Gastrointestinal: soft Neurologic/Psychiatric: other (unresponsive) Skin Characteristics: warm/dry Assessment/Plan I have reviewed the medical record and performed a history and physical examination of this patient today. I have discussed the case with Dr. Blount. The above note reflects my findings, conclusions, and recommendations.
--- NOTE | 2016-09-24 16:28 | Cardiology Follow-Up ---
Subjective General Date of Service: Sep 24, 2016. Chief Complaint: follow up cardiac arrest, cardiomyopathy Pt evaluation today including: conversation w/ patient, conversation w/ family , physical exam, chart review, lab review, review of studies, review of inpatient medication list History of Present Illness The patient is a 66 year old male seen in follow up. Patient is unresponsive on ventilator. MRI demonstrates evidence of hypoxic injury. Rate controlled AF on monitor. IV heparin and amiodarone infusing. Allergies Coded Allergies: No Known Allergies (Unverified , NONE, 09/20/16) Social History Smoking Status: Former Smoker Physical Exam Vital Signs Last Vital Signs Documentation Date Time Temp Pulse Resp B/P Pulse Ox O2 Delivery O2 Flow Rate FiO2 09/24/16 15:00 37.3 71 22 98/70 94 Mechanical Ventilator 40 Physical Exam Constitutional: Level of Distress: NAD Head: normocephalic ENMT: pertinent finding (+ ETT, +OGT) Neck: supple Lungs: Auscultation: no wheezing, no rales/crackles Cardiovascular: Heart Auscultation: no murmurs, bradycardia, irregular rate rhythm Peripheral Pulses: Radial Pulse: normal on the left (+ arterial line), normal on the right Dorsalis Pedis Pulse: doppler (+DP B/L) Abdomen: Bowel Sounds: diminished Inspection & Palpation: non-distended Extremities: no edema Neurologic: Gait & Station: pertinent finding (fine eye 'twiches' ) Assessment and Plan Assessment and Plan FINAL IMPRESSION: 1. Cardiac arrest secondary to ventricular dysrhythmia, status post CPR and multiple defibrillator shocks in the field. -Cardiac catheterization demonstrated mild nonobstructive CAD. -known underlying nonischemic cardiomyopathy and prior bioprosthetic aortic valve replacement. -s/p "code arctic" and rewarming with seizure activity and MRI evidence of hypoxic injury. 2. Chronic atrial fibrillation - rate-controlled on IV heparin and amiodarone - previously not anticoagulated due to medication nonadherence. 3. History of bioprosthetic aortic valve replacement in 2010 secondary to bicuspid aortic valve and severe aortic insufficiency. 4. Seizure activity - Neurology following PLAN AND RECOMMENDATIONS: No medication changes from a cardiovascular perspective. No further cardiac testing today. Overall neurologic prognosis appears poor per review of neurologist notes. Laboratory Results Last 24 Hours Test 09/23/16 20:02 09/23/16 22:10 09/23/16 23:56 09/24/16 03:50 Lactic Acid Level 1.1 mmol/L 1.0 mmol/L Activated Partial Thromboplast Time 42.0 SECONDS 79.5 SECONDS Partial Thromboplastin Ratio 1.6 3.1 Bedside Glucose (other) 100 mg/dl White Blood Count 9.26 K/uL Red Blood Count 3.37 M/uL Hemoglobin 10.7 g/dL Hematocrit 30.7 % Mean Corpuscular Volume 91.1 fL Mean Corpuscular Hemoglobin 31.8 pg Mean Corpuscular Hemoglobin Concent 34.9 g/dl Platelet Count 126 K/uL Mean Platelet Volume 9.3 fL Neutrophils (%) (Auto) 62.8 % Lymphocytes (%) (Auto) 27.5 % Monocytes (%) (Auto) 7.8 % Eosinophils (%) (Auto) 1.1 % Basophils (%) (Auto) 0.2 % Neutrophils # (Auto) 5.81 K/uL Lymphocytes # (Auto) 2.55 K/uL Monocytes # (Auto) 0.72 K/uL Eosinophils # (Auto) 0.10 K/uL Basophils # (Auto) 0.02 K/uL RDW Standard Deviation 47.3 fL RDW Coefficient of Variation 14.1 % Immature Granulocyte % (Auto) 0.6 % Immature Granulocyte # (Auto) 0.06 K/uL Sodium Level 143 mmol/L Potassium Level 3.8 mmol/L Chloride Level 109 mmol/L Carbon Dioxide Level 26 mmol/L Anion Gap 8.0 mmol/L Blood Urea Nitrogen 6 mg/dl Creatinine 0.59 mg/dl Est Creatinine Clear Calc Drug Dose 155.4 ml/min Estimated GFR () 123.1 Estimated GFR (Non- 106.2 BUN/Creatinine Ratio 10.3 Random Glucose 101 mg/dl Calcium Level 8.2 mg/dl Phosphorus Level 1.9 mg/dl Magnesium Level 2.2 mg/dl Total Bilirubin 0.6 mg/dl Aspartate Amino Transf (AST/SGOT) 58 U/L Alanine Aminotransferase (ALT/SGPT) 32 U/L Alkaline Phosphatase 33 U/L Total Protein 5.8 gm/dl Albumin 3.3 gm/dl Globulin 2.5 gm/dl Albumin/Globulin Ratio 1.3 Valproic Acid (Depakene) Level 103 mcg/ml Phenobarbital Level 14.9 mcg/mL Test 09/24/16 06:19 4/3/17 09:23 09/24/16 10:05 09/24/16 14:17 Bedside Glucose (other) 93 mg/dl Blood Gas Sample Site Art Line Art Line Bedside Blood Gas pH (LAB) 7.45 7.46 Bedside Blood Gas pCO2 (LAB) 33 mmHg 30 mmHg Bedside Blood Gas pO2 (LAB) 74 mmHg 67 mmHg Bedside Blood Gas HCO3 (LAB) 23 meq/L 22 meq/L Bedside Blood Gas Total CO2 24 mEq/l 23 mEq/l Bedside Blood Gas Base Excess (LAB) -1.0 meq/L -2.0 meq/L Bedside Blood Gas O2 Saturation 96.0 % 94.0 % Augustine Test NA NA Oxygen Delivery Device Ventilator Ventilator Bedside Oxygen Rate (breaths/min) 22 22 Blood Gas Minute Ventilation 12.1 11 Bedside FiO2 30 % 30 % Blood Gas Tidal Volume 550 500 Blood Gas PEEP 10 8 Activated Partial Thromboplast Time 39.9 SECONDS Partial Thromboplastin Ratio 1.5
[2016-09-24] MEDS: MIDAZOLAM 125MG/250ML D5W 250 ML IV PRN (17:52)
[2016-09-24] MEDS: FENTANYL 1250MCG/250ML NSS 250 ML IV PRN (17:53)
--- NOTE | 2016-09-24 18:22 | Progress Note ---
Progress Note Date of Service Sep 24, 2016. Progress Note I had extensive discussion with the health care proxy and the three daughters. At this point they decided not to pursue any further medical therapy, focus on his comfort only, extubate him and let nature take its course. Patient is DNR, will medicate with Morphine as needed. On CPAP with PS of 5 the patient has very poor inspiratory effort, apnea ventilation kicking in. I suspect he will shortly post-extubation.
[2016-09-24] MEDS ORDERED: MoRPHine SULFATE 4 MG/ML 1 ML CARP\\VIAL ONE (18:31)
[2016-09-24] MEDS ORDERED: NURSING VERBAL MED ORDER ONE (19:15)
[2016-09-24] MEDS ORDERED: LORAZEPAM 2 MG/ML 1 ML VIAL IV PRN (19:30)
[2016-09-24] MEDS: MoRPHine SULFATE 4 MG/ML 1 ML CARP\\VIAL IV PRN ×3 (21:43→23:23)
[2016-09-25] VITALS (10 sets, daily range): BP systolic 102–119; BP diastolic 59–89; PULSE 72–96; TEMP 36.2–36.4; O2SAT 71
[2016-09-25] MEDS: MoRPHine SULFATE 4 MG/ML 1 ML CARP\\VIAL IV PRN ×7 (00:29→13:06)
--- NOTE | 2016-09-25 06:30 | Family Medicine Progress Note ---
Progress Note Date of Service Sep 25, 2016. Subjective Pt evaluation today including: conversation w/ patient (daughter) Pain: Does not appear to be in pain Additional Comments: Could not be obtained as patient is comatose Medications Current Inpatient Medications Medications (Trade) Dose Ordered Sig/Christina Route Start Time Stop Time Status Last Admin Dose Admin Lorazepam/Syringe (Ativan Inj/ Syringe) 2 ml @ 1 mls/min Q5M PRN IV 09/24/16 19:30 10/24/16 19:29 09/25/16 13:41 1 MLS/MIN Lorazepam (Ativan Inj) 2 mg Q5M PRN IV 09/24/16 19:30 10/24/16 19:29 Atropine Sulfate (Atropine Sulfate 1% Oph Soln) 2 drops Q2H PRN OP 09/25/16 09:00 10/25/16 08:59 09/25/16 13:06 2 DROPS Scopolamine (Transderm-Scop Patch) 1.5 mg Q3D TD 09/25/16 09:00 10/25/16 08:59 09/25/16 11:35 1.5 MG Miscellaneous (Remove Transderm-Scop Patch) 1 ea Q3D@0859 N/A 09/28/16 09:00 10/28/16 08:59 Miscellaneous Information (Check Scopolamine Patch Placement) 1 ea QS N/A 09/25/16 16:00 10/25/16 15:59 Morphine Sulfate (MoRPHine SULFATE INJ) 4 mg Q2H PRN IV 09/25/16 15:10 10/09/16 15:09 Objective Vital Signs Date Time Temp Pulse Resp B/P Pulse Ox O2 Delivery O2 Flow Rate FiO2 09/25/16 11:00 36.2 72 28 71 1.0 09/25/16 08:00 36.4 72 28 104/62 71 1.0 09/25/16 06:00 96 26 116/59 09/25/16 05:00 96 11 119/71 09/25/16 04:00 Mask 3.0 09/25/16 04:00 91 12 110/73 Mask 3.0 09/25/16 02:00 85 12 106/89 09/25/16 01:00 81 11 102/75 09/25/16 00:02 89 14 113/64 09/25/16 00:01 83 14 113/61 Mask 3.0 09/24/16 23:59 Mask 3.0 09/24/16 22:00 72 15 109/72 Mask 3.0 09/24/16 20:00 Mask 09/24/16 20:00 67 13 96/65 98 Mask 10.0 09/24/16 18:00 36.0 52 23 100/53 96 Mechanical Ventilator 40 09/24/16 17:00 57 22 88/64 95 Mechanical Ventilator 40 09/24/16 16:20 40 09/24/16 16:00 Mechanical Ventilator 40 09/24/16 16:00 40 09/24/16 16:00 36.9 68 22 88/63 88 Mechanical Ventilator 40 09/24/16 15:00 37.3 71 22 98/70 94 Mechanical Ventilator 40 Physical Exam General Appearance: no apparent distress Neck: no JVD Respiratory/Chest: lungs clear, no respiratory distress Cardiovascular: no edema, no gallop, + irregularly irregular Abdomen: non tender, soft Extremities: non-tender, no pedal edema Neurologic/Psychiatric: + pertinent finding (comatose) Skin: normal color, warm/dry, no rash Assessment and Plan 66 year old male, day 5 admission for out-of hospital V.fib arrest. Code article with rewarming complicated by seizures, treated with Depakote and Keppra. Patient failed to awaken from sedation; EEG shows diffuse slowing suggesting of global encephalopathy; MRI suggestive of global hypoxia. Poor prognosis for functional recovery. Family has made decision to terminally extubate the patient. Problem list includes: - Seizure activity - S/p V. fib arrest - S/p aortic valve replacement/bicuspid aortic valve - Acute congestive heart failure with reduce EF 20-25% - Thoracic aortic aneurysm stable - Paroxysmal atrial fibrillation Our plan for him is as follows: Terminal Wean secondary to anoxic brain injury sec to V fib arrest - Comfort care measures initiated - Morphine 4 mg q 2 hours for pain or respiratory distress - Lorazepam 2 mg q 5 minutes for breakthrough seizures - Atropine drops for secretions - Scopolamine patch Anoxic encephalopathy - EEG demonstrates generalized slowing; prognosis guarded of return to pre- arrest baseline - MRI suggestive of diffuse cortical anoxia - Neurology recommendations appreciated - Poor prognosis, remains obtunded - Terminal wean New onset seizure activity - All seizure medications discontinued; patient remains seizure-free Post-Vfib arrest - Rewarming complete Acute Systolic CHF with reduced EF - EF 20-25% - Discontinue all chronic medications Atrial Fibrillation with RVR - Discontinue Amiodarone and Heparin infusion - Discontinue routine monitoring; space to qshift Hyperglycemia -Discontinue checks and insulin infusion DVT Prophylaxis - Discontinue IV Heparin infusion Code Status - DNR - Patient has been terminally weaned Disposition - Transfer to floor with private room Discharge planning: uncertain Reviewed: Pt Seen/Exam by Me History continues to stay unresponsive extubated last evening. Constitutional: denies: fever General Appearance: other (unresponsive. ) Respiratory: accessory muscle use, rhonchi (coarse) Cardiovascular: regular rate, rhythm Neurologic/Psychiatric: other (unresponsive. ) Skin Characteristics: warm/dry Assessment/Plan I have reviewed the medical record and performed a history and physical examination of this patient today. I have discussed the case with Dr. Blount. The above note reflects my findings, conclusions, and recommendations. continue comfort care
--- NOTE | 2016-09-25 08:41 | Neurology Progress Notes ---
Neurology Progress Note Date of Service Sep 25, 2016. Subjective No change and unresponsive status. Patient has been extubated. MRI of the brain reported images reviewed by myself. There is signs of diffuse anoxic brain injury. Objective Date Time Temp Pulse Resp B/P Pulse Ox O2 Delivery O2 Flow Rate FiO2 09/25/16 06:00 96 26 116/59 09/25/16 05:00 96 11 119/71 09/25/16 04:00 Mask 3.0 09/25/16 04:00 91 12 110/73 Mask 3.0 09/25/16 02:00 85 12 106/89 09/25/16 01:00 81 11 102/75 09/25/16 00:02 89 14 113/64 09/25/16 00:01 83 14 113/61 Mask 3.0 09/24/16 23:59 Mask 3.0 09/24/16 22:00 72 15 109/72 Mask 3.0 09/24/16 20:00 Mask 09/24/16 20:00 67 13 96/65 98 Mask 10.0 09/24/16 18:00 36.0 52 23 100/53 96 Mechanical Ventilator 40 09/24/16 17:00 57 22 88/64 95 Mechanical Ventilator 40 09/24/16 16:20 40 09/24/16 16:00 Mechanical Ventilator 40 09/24/16 16:00 40 09/24/16 16:00 36.9 68 22 88/63 88 Mechanical Ventilator 40 09/24/16 15:00 37.3 71 22 98/70 94 Mechanical Ventilator 40 09/24/16 14:15 40 09/24/16 14:00 37.3 71 22 96/67 89 Mechanical Ventilator 30 09/24/16 13:03 68 22 100/75 91 Mechanical Ventilator 30 09/24/16 13:00 30 09/24/16 13:00 37.9 70 22 111/67 96 Mechanical Ventilator 30 09/24/16 13:00 Mechanical Ventilator 30 09/24/16 11:00 37.9 81 22 115/88 97 Mechanical Ventilator 30 09/24/16 10:45 30 09/24/16 10:00 37.6 67 22 115/71 99 Mechanical Ventilator 30 09/24/16 09:00 37.4 82 22 118/71 97 Mechanical Ventilator 30 Last 24 Hours Test 09/24/16 09:23 09/24/16 10:05 09/24/16 14:17 Blood Gas Sample Site Art Line Art Line Bedside Blood Gas pH (LAB) 7.45 7.46 Bedside Blood Gas pCO2 (LAB) 33 mmHg 30 mmHg Bedside Blood Gas pO2 (LAB) 74 mmHg 67 mmHg Bedside Blood Gas HCO3 (LAB) 23 meq/L 22 meq/L Bedside Blood Gas Total CO2 24 mEq/l 23 mEq/l Bedside Blood Gas Base Excess (LAB) -1.0 meq/L -2.0 meq/L Bedside Blood Gas O2 Saturation 96.0 % 94.0 % Augustine Test NA NA Oxygen Delivery Device Ventilator Ventilator Bedside Oxygen Rate (breaths/min) 22 22 Blood Gas Minute Ventilation 12.1 11 Bedside FiO2 30 % 30 % Blood Gas Tidal Volume 550 500 Blood Gas PEEP 10 8 Activated Partial Thromboplast Time 39.9 SECONDS Partial Thromboplastin Ratio 1.5 Exam: Gen.: Patient is attended/unresponsive with no spontaneous movement Neurological examination: Mental status: Unresponsive to voice, tactile stimulation, and deep nailbed pressure Eyes are midpoint. Pupils are +1 to +2 without any significant response to light. No withdrawal or grimacing to deep nailbed pressure in all 4 extremities. +0 DTR on all 4 extremities. Toes were equivocal to plantar stimulation Current Inpatient Medications Medications (Trade) Dose Ordered Sig/Christina Route Start Time Stop Time Status Last Admin Dose Admin Lorazepam/Syringe (Ativan Inj/ Syringe) 2 ml @ 1 mls/min Q5M PRN IV 09/24/16 19:30 10/24/16 19:29 Lorazepam (Ativan Inj) 2 mg Q5M PRN IV 09/24/16 19:30 10/24/16 19:29 Morphine Sulfate (MoRPHine SULFATE INJ) 4 mg Q5M PRN IV 09/24/16 19:30 10/08/16 19:29 09/25/16 03:27 4 MG Impression This is a 66-year-old male status post heart attack arrest and diffuse brain anoxia with a post anoxic seizures. Overall neurological prognosis is poor and I do not expect any meaningful recovery. Plan Discussed with family present poor prognosis. Discussed that we are poor predictors on how fast his situation may deteriorate after extubation. Sometimes it takes minutes to hours versus days. Discussed that I do not think these in pain, but pain medications can be provided for comfort. Consider palliative care/hospice consult. No additional neurological recommendations at this time. If there is any questions or concerns, feel free to call/page me.
[2016-09-25] MEDS ORDERED: SCOPOLAMINE 1.5 MG TDSY TD SCH (09:00)
[2016-09-25] MEDS ORDERED: NURSING VERBAL MED ORDER ONE ×3 (09:00→21:45)
[2016-09-25] MEDS: ATROPINE SULFATE 1% OP SOLN 5 ML BTL OP PRN ×4 (11:24→20:04)
[2016-09-25] MEDS: LORAZEPAM INJ 2 MG in SYRINGE 1 ML IV PRN ×4 (13:41→21:31)
[2016-09-25] MEDS ORDERED: MoRPHine SULFATE 4 MG/ML 1 ML CARP\\VIAL IV PRN (15:10)
[2016-09-25] MEDS ORDERED: CHECK SCOPOLAMINE PATCH PLACEMENT SCH (16:00)
[2016-09-25] MEDS: MoRPHine SULF/NSS 250MG/250ML 250 ML IV PRN ×3 (18:49→21:38)
--- NOTE | 2016-09-26 15:59 | Death Summary ---
Summary of Admission Date Sep 20, 2016 at 16:50 Date & Time of Sep 25, 2016. 22:20 Cause of Global Brain Anoxia Secondary Diagnoses Out of hospital V. Fib arrest Hospital Course Patient was admitted as an out-of hospital Vfib arrest with estimated downtime 10 minutes without CPR. Patient was successfully resuscitated and placed on hypothermia protocol. Echocardiogram showed heart failure with reduced ejection fraction, EF 20-25%. Patient had Afib with RVR and was placed on Amiodarone infusion in the ICU. Patient started on Levofed for vasopressor support. During rewarming phase, he was noted to have seizures. He was placed on Keppra and Depakote. Neurology was consulted. EEG was ordered showing global slowing consistent with severe encephalopathy. MRI brain was reported as diffuse cortical laminar necrosis as would be seen in global hypoxia. Determined to have poor prognosis for functional neurological recovery. Decision was made by family to proceed with comfort care. Patient was discharged from ICU and send to medical/surgical unit where comfort measures were continued until the patient . Copy To Domenico Vines D.O. Pulmonary
== END 2016-09-25 22:20 | disposition expired | DRG 287 ==
LOC: ENRESERVDT → ENRESERVTM → EDBD 15:25 → C.EDB 15:27 → C.MSICU 15:58 → C.MS4W 09-25 11:18
PROVIDERS: ADMIT Internal Medicine Interventional Cardiology; ATTEND Family Medicine
PROC: B2100ZZ Fluoroscopy of Single Coronary Artery using High Osmolar Contrast (ICD-10-PCS; principal; 2016-09-20 15:48)
DX: I49.01 Ventricular fibrillation (principal); I50.22 Chronic systolic (congestive) heart failure; I48.91 Unspecified atrial fibrillation; Z95.2 Presence of prosthetic heart valve; Z79.82 Long term (current) use of aspirin; I46.9 Cardiac arrest, cause unspecified; Z87.891 Personal history of nicotine dependence